=== PATIENT | female | born 1935 | race Caucasian/White ===

== ENCOUNTER 2019-06-15 06:05 | Inpatient (IN) ==
[2019-06-15] MEDS ORDERED: SODIUM CHLORIDE 0.9% 1000ML 1,000 ML IV SCH (06:45)
[2019-06-15 07:06] LABS: Albumin Level 3.3 gm/dl (3.4-5.0); BUN Creatinine Ratio 14.6 (10-20); Creatinine Clr Calc Pharmacy 12.2 ml/min; Est GFR (African American) 16.2; Potassium 4.4 mmol/L (3.5-5.1)
[2019-06-15 07:08] LABS: INR 1.2 (0.9-1.1); Prothrombin Time 12.3 Seconds (9.0-12.0)
--- NOTE | 2019-06-15 07:09 | XRay Report ---
XR chest 1V portable CLINICAL HISTORY: weakness COMPARISON STUDY: Chest radiograph October 04, 2008. FINDINGS: Lung volumes are normal. There is no pneumothorax or pleural effusion. There is no consolid ation to suggest pneumonia. Minimal linear left basilar opacity favors atelectasis or scarring. Cardi omediastinal silhouette is stable. IMPRESSION: No acute cardiopulmonary findings. Electronically signed by: Rd Cabral M.D. 06/15/2019 7:07 AM
[2019-06-15 07:14] LABS: Hematocrit (blood only) 30.6 % (37-47); Hemoglobin 10.3 g/dL (12.0-16.0); Mean Corpuscular Hgb Conc 33.7 g/dL (32-36); Mean Corpuscular Volume 97.1 fL (80-100); Mean Platelet Volume 10.3 fL (7.4-10.4); Platelet Count 120 K/uL (130-400); RDW Standard Deviation 49.2 fL (36.4-46.3); Red Blood Count 3.15 M/uL (4.2-5.4); White Blood Count 0.85 K/uL (4.8-10.8)
[2019-06-15 07:15] LABS: Appearance Urine Turbid (Clear); Bacteria Urine Automated 4+ (Negative); Bilirubin Urine Negative (Negative); Blood Urine 3+ (Negative); Color Urine Yellow; Epithelial Cell Urine Auto 20-30 /lpf (0-5); Glucose Urine UA Negative (Negative); Ketones Urine Trace (Negative); Leukocyte Esterase Urine 3+ (Negative); Nitrite Urine Negative (Negative); Protein Urine 1+ (Negative); RBC Urine Automated >30 /hpf (0-4); Specific Gravity Urine 1.021 (1.000-1.030); Urobilinogen Urine Negative (Negative); WBC Urine Automated >30 /hpf (0-5)
[2019-06-15 07:25] LABS: Albumin Globulin Ratio 0.9 (0.9-2); Bilirubin,Total 0.8 mg/dl (0.2-1); Globulin 3.7 gm/dl (2.5-4.0); Troponin I 0.275 ng/ml (0-0.045)
[2019-06-15] MEDS ORDERED: cefTRIAXone SODIUM 1,000 MG/50 ML BAG IV STA (07:34)
[2019-06-15] MEDS ORDERED: SODIUM CHLORIDE 0.9% 1000ML 1,000 ML IV ONE ×3 (07:35→11:13)
--- NOTE | 2019-06-15 07:38 | Emergency Department Note ---
Entered by Beatriz Hill acting as a scribe for Thomas Vera DO History of Present Illness General Chief complaint: Illness Stated complaint: ILLNESS/POSSIBLE SEIZURE Source: patient and family Mode of arrival: EMS Limitations: no limitations History of Present Illness Onset (ago): hour(s) (0400) Location: head (global), upper extremity (global) and lower extremity (global) Pain Consistency: + other (episode) Quality: + other (illness, possible seizure, shaking) Relieved By: + medication (Nitro, baby aspirin) Associated symptoms: + nausea/vomiting (The patient complains of vomiting. The patient denies nausea. ) and + other (The patient complains of pain with urination and right sided flank pain. The patient denies changes in vision and numbness.); no chest pain, no fever/chills (The patient denies fevers. ), no headaches, no shortness of breath, no syncope and no weakness Treatments prior to arrival: aspirin and other (nitro) The patient is an 84 year old female with a history of CAD, stents, heart attack, atherosclerosis, diverticulosis of colon, and osteroarthrosis who presents to the ED via EMS with complaints of an episode of illness/possible seizure that onset at 0400. The patient presents with her family. Per EMS, the patient got up to use the restroom last night and then went back to bed. Per , when the patient returned to bed she began to shake like she was cold for 30 minutes. He denies loss of consciousness and unresponsiveness. He states that he give her 1 nitro and 1 baby aspirin, which helped to alleviate her symptoms. Per , the patient was not complaining of chest pain at this time. The patient states that she remembers getting up to use the restroom. They state that by the time EMS arrived, she was no longer shaking and was conscious. Per EMS, the patient was very warm and lethargic but oriented. Per , the patient has been vomiting and constipated over the past three days. The patient complains of pain with urination and right sided flank pain. The patient denies fevers, headaches, changes in vision, chest pain, shortness of breath, nausea, weakness, and numbness. Home Medications Home Medications Medication Instructions Recorded Confirmed Type amlodipine 5 mg PO DAILY 06/15/19 06/15/19 History aspirin 81 mg PO DAILY 06/15/19 06/15/19 History calcium carbonate [Calcium 600] 600 mg PO DAILY 06/15/19 06/15/19 History celecoxib 100 mg PO BID 06/15/19 06/15/19 History metoprolol succinate 100 mg PO DAILY 06/15/19 06/15/19 History nitroglycerin [Nitrostat] 0.4 mg SUBLINGUAL USEASDIRECTD PRN 06/15/19 06/15/19 History oxybutynin chloride 2.5 mg PO BID 06/15/19 06/15/19 History potassium chloride 20 meq PO DAILY 06/15/19 06/15/19 History triamterene-hydrochlorothiazid 1 tab PO DAILY 06/15/19 06/15/19 History Allergies Allergy/AdvReac Type Severity Reaction Status Date / Time banana AdvReac Unknown SHAKES;FEELS Verified 06/15/19 07:45 LIKE SHE IS IN ANOTHER WORLD Past Med/Surg History Medical History CKD (chronic kidney disease), stage III (Chronic) Non-STEMI (non-ST elevated myocardial infarction) (Chronic) Hypertension (Chronic) CAD (coronary artery disease) (Chronic) Dyslipidemia (Chronic) Surgical History History of cataract surgery (Chronic) History of total right hip arthroplasty (Chronic) History of carpal tunnel surgery of right wrist (Chronic) Family History Mother Heart disease Liver cancer Father Heart disease Social History Preferred Language: German Communication Ability: drowsy Visual Impairment: No Limitations Hearing Ability: Normal Litigation Legal Secretary Required: No Beliefs That Will Affect Care: None marital status details: Current Living Situation: Spouse Other Information That Helps Us Care for You: No Feels Safe at Home: No Is there a partner from a previous relationship who is making you feel unsafe now?: No Any Concerns about Your Family Situation: No Would You Like to Speak to Someone About Your Situation: No Safety Concerns: Feels Safe At This Time Smoking Status: Never smoker Hx Alcohol Use: No Hx Substance Use: No Review of Systems See HPI for pertinent positives & negatives. and A total of 10 systems reviewed and were otherwise negative Physical Exam Vital Signs Vital Signs - 24 hr 06/15/19 06:15 06/15/19 06:44 06/15/19 07:02 Temperature 37.0 C Temperature Source Oral Sepsis Recent Fever Within 48 Hours No Sepsis New/Unexplained Change in Mental Status No Sepsis Action Taken by Nursing No Action Required Pulse Rate 103 H Pulse Rate [Finger] 97 H Pulse Rhythm [Finger] Pulse Strength [Finger] Respiratory Rate 18 18 Respiratory Effort / Characteristics Respiratory Depth Respiratory Pattern Blood Pressure 129/53 L Blood Pressure [Right Arm] 114/57 L Blood Pressure Mean 78 Blood Pressure Mean [Right Arm] 76 Blood Pressure Position [Right Arm] Pulse Oximetry 96 95 96 Oxygen Delivery Method Room Air Room Air Room Air 06/15/19 08:30 Temperature Temperature Source Sepsis Recent Fever Within 48 Hours Sepsis New/Unexplained Change in Mental Status Sepsis Action Taken by Nursing Pulse Rate Pulse Rate [Finger] 94 H Pulse Rhythm [Finger] Regular Pulse Strength [Finger] Normal Respiratory Rate 18 Respiratory Effort / Characteristics Non-Labored Spontaneous Respiratory Depth Normal Respiratory Pattern Regular Blood Pressure Blood Pressure [Right Arm] 110/46 L Blood Pressure Mean Blood Pressure Mean [Right Arm] 67 Blood Pressure Position [Right Arm] Lying Pulse Oximetry 96 Oxygen Delivery Method Room Air GENERAL: Sitting up in bed. Tachycardic, disheveled, ill appearing, minimal distress, non-toxic EYE EXAM: Normal conjunctiva. OROPHARYNX: no exudate, no erythema, lips, buccal mucosa, and tongue normal and mucous membranes are dry. NECK: supple, no nuchal rigidity, no adenopathy, non-tender LUNGS: Clear to auscultation. Normal chest wall mechanics HEART: Tachycardic, S1 normal and S2 normal ABDOMEN: abdomen soft, Diffusely tender in lower abdomen, normo-active bowel sounds, no masses, no rebound or guarding. BACK: Back is symmetrical on inspection and there is no deformity, no midline tenderness, no CVA tenderness. SKIN: no rashes and no bruising UPPER EXTREMITIES: upper extremities are grossly normal. LOWER EXTREMITIES: No pitting edema. NEURO EXAM: Normal sensorium, cranial nerves II-XII grossly intact, normal speech, no gross weakness of arms, no gross weakness of legs. Course 0631: Past medical records reviewed. The patient was evaluated in room B12. A complete history and physical examination was performed. 0759: Callout to urology. 0800: I updated the patient on the results of her scans. 0800: I reviewed the patient's case with Shante Abreu for Dr. Lee. She will evaluate the patient for further management. 0802: I reviewed the patient's case with Janice - Urology. She will come see the patient. 0823: I reviewed the patient's case with Shante Abreu. 0830: I reviewed the patient's case with Janice - Urology. She states to get a NPO renal ultrasound KUB. 0832: I updated Shante Abreu. Consultations Consultation #1: 0800: I reviewed the patient's case with Shante Abreu for Dr. Lee. She will evaluate the patient for further management. Time: 08:00 Consultation #2: 08: I reviewed the patient's case with Janice - Urology. She will come see the patient. Time: 08:02 Consultation #3: 0823: I reviewed the patient's case with Shante Abreu. Time: 08:23 Additional Consultation(s): 0830: I reviewed the patient's case with Janice - Urology. She states to get a NPO renal ultrasound KUB. 0832: [facility] Administered Medications Discontinued Medications Sodium Chloride (Nss 1000ml) 1,000 mls @ 999 mls/hr IV .Q1H1M MERVAT Stop: 06/15/19 07:45 Last Infusion: 06/15/19 08:00 Dose: 0 mls/hr Documented by: [id number] Admin: 06/15/19 07:00 Dose: 999 mls/hr Documented by: [id number] Ceftriaxone Sodium (Rocephin) 1,000 mg in 50 mls @ 100 mls/hr IV NOW STA Stop: 06/15/19 08:03 Last Infusion: 06/15/19 08:45 Dose: 0 mls/hr Documented by: [id number] Admin: 06/15/19 08:12 Dose: 100 mls/hr Documented by: [id number] Sodium Chloride (Nss 1000ml) 1,000 mls @ 999 mls/hr IV .Q1H1M ONE Stop: 06/15/19 08:35 Last Infusion: 06/15/19 09:18 Dose: 0 mls/hr Documented by: [id number] Admin: 06/15/19 08:17 Dose: 999 mls/hr Documented by: [id number] Sodium Chloride (Nss 1000ml) 1,000 mls @ 999 mls/hr IV .Q1H1M ONE Stop: 06/15/19 09:01 Last Infusion: 06/15/19 09:18 Dose: 0 mls/hr Documented by: [id number] Admin: 06/15/19 08:17 Dose: 999 mls/hr Documented by: [id number] Sodium Chloride (Nss) 500 mls @ 125 mls/hr IV .Q4H MERVAT Stop: 07/15/19 10:18 Last Admin: 06/15/19 13:13 Dose: 125 mls/hr Documented by: [id number] Piperacillin Sod/Tazobactam (Sod 3.375 gm/ Dextrose) 115 mls @ 230 mls/hr IV NOW ONE; Protocol Stop: 06/15/19 11:14 Last Infusion: 06/15/19 13:13 Dose: 0 mls/hr Documented by: [id number] Admin: 06/15/19 11:26 Dose: 230 mls/hr Documented by: [id number] Sodium Chloride (Nss 1000ml) 1,000 mls @ 999 mls/hr IV .Q1H1M ONE Stop: 06/15/19 12:13 Last Infusion: 06/15/19 13:13 Dose: 0 mls/hr Documented by: [id number] Admin: 06/15/19 11:20 Dose: 999 mls/hr Documented by: [id number] Daptomycin 300 mg/ Syringe 6 mls @ 4 mls/min IV 1300 ONE; Protocol Stop: 06/15/19 13:01 Last Admin: 06/15/19 14:12 Dose: 4 mls/min Documented by: [id number] Medical Decision Making Differential Diagnosis Differential diagnoses: Appendicitis, diverticulitis, PUD, biliary pathology, UTI, pancreatitis, obstruction, mesenteric ischemia, aortic pathology, infections, inflammatory bowel disease, renal colic, as well as others were entertained. Medical Records Attestation: I reviewed the patient's medical records. Home Medications Current Medication List: was personally reviewed by me Laboratory Data Attestation: I reviewed the patient's lab results. Result diagrams: 06/15/19 14:51 06/15/19 14:51 Lab Results 06/15/19 06/15/19 06/15/19 Range/Units 06:17 06:17 06:17 WBC 0.85 L* (4.8-10.8) K/uL RBC 3.15 L (4.2-5.4) M/uL Hgb 10.3 L (12.0-16.0) g/dL Hct 30.6 L (37-47) % MCV 97.1 (80-100) fL MCH 32.7 (25-34) pg MCHC 33.7 (32-36) g/dL RDW Std Deviation 49.2 H (36.4-46.3) fL RDW Coeff of Jose 14.0 (11.5-14.5) % Plt Count 120 L (130-400) K/uL MPV 10.3 (7.4-10.4) fL Immature Gran % (Auto) 0.0 % Neut % (Auto) 72.9 % Lymph % (Auto) 20.0 % [place] % (Auto) 1.2 % Eos % (Auto) 5.9 % Baso % (Auto) 0.0 % Immature Gran # (Auto) 0.00 (0.00-0.02) K/uL Neut # (Auto) 0.62 L* (1.4-6.5) K/uL Lymph # (Auto) 0.17 L (1.2-3.4) K/uL [place] # (Auto) 0.01 L (0.11-0.59) K/uL Eos # (Auto) 0.05 (0-0.5) K/uL Baso # (Auto) 0.00 (0-0.2) K/uL Toxic Granulation 1+ Toxic Vacuolation 3+ Dohle Bodies 2+ Giant Platelets 1+ Peripher Smr Path Cons PT 12.3 H (9.0-12.0) Seconds INR 1.2 H (0.9-1.1) Sodium 138 (136-145) mmol/L Potassium 4.4 (3.5-5.1) mmol/L Chloride 109 H (98-107) mmol/L Carbon Dioxide 15 L (21-32) mmol/L Anion Gap 14.0 H (3-11) BUN 43 H (7-18) mg/dl Creatinine 2.95 H (0.6-1.2) mg/dl Est Cr Clr Drug Dosing 12.2 ml/min Est GFR ( Amer) 16.2 Est GFR (Non-Af Amer) 14.0 BUN/Creatinine Ratio 14.6 (10-20) Glucose 93 (70-99) mg/dl Lactate (0.4-2.0) mmol/L Calcium 9.0 (8.5-10.1) mg/dl Total Bilirubin 0.8 (0.2-1) mg/dl AST 27 (15-37) U/L ALT 23 (12-78) U/L Alkaline Phosphatase 106 (45-117) U/L Troponin I 0.275 H* (0-0.045) ng/ml Total Protein 7.0 (6.4-8.2) gm/dl Albumin 3.3 L (3.4-5.0) gm/dl Globulin 3.7 (2.5-4.0) gm/dl Albumin/Globulin Ratio 0.9 (0.9-2) TSH 0.568 (0.300-4.500) uIu/ml Urine Color Urine Appearance (Clear) Urine pH (4.5-7.5) Ur Specific [place] (1.000-1.030) Urine Protein (Negative) Urine Glucose (UA) (Negative) Urine Ketones (Negative) Urine Blood (Negative) Urine Nitrite (Negative) Urine Bilirubin (Negative) Urine Urobilinogen (Negative) Ur Leukocyte Esterase (Negative) Urine WBC (Auto) (0-5) /hpf Urine RBC (Auto) (0-4) /hpf U Hyaline Cast (Auto) (0-5) /lpf U Epithel Cells (Auto) (0-5) /lpf Urine Bacteria (Auto) (Negative) Lyme Disease IgG Ab (Negative) Lyme Disease IgM Ab (Negative) 06/15/19 06/15/19 06/15/19 Range/Units 06:17 06:58 07:14 WBC (4.8-10.8) K/uL RBC (4.2-5.4) M/uL Hgb (12.0-16.0) g/dL Hct (37-47) % MCV (80-100) fL MCH (25-34) pg MCHC (32-36) g/dL RDW Std Deviation (36.4-46.3) fL RDW Coeff of Jose (11.5-14.5) % Plt Count (130-400) K/uL MPV (7.4-10.4) fL Immature Gran % (Auto) % Neut % (Auto) % Lymph % (Auto) % [place] % (Auto) % Eos % (Auto) % Baso % (Auto) % Immature Gran # (Auto) (0.00-0.02) K/uL Neut # (Auto) (1.4-6.5) K/uL Lymph # (Auto) (1.2-3.4) K/uL [place] # (Auto) (0.11-0.59) K/uL Eos # (Auto) (0-0.5) K/uL Baso # (Auto) (0-0.2) K/uL Toxic Granulation Toxic Vacuolation Dohle Bodies Giant Platelets Peripher Smr Path Cons PT (9.0-12.0) Seconds INR (0.9-1.1) Sodium (136-145) mmol/L Potassium (3.5-5.1) mmol/L Chloride (98-107) mmol/L Carbon Dioxide (21-32) mmol/L Anion Gap (3-11) BUN (7-18) mg/dl Creatinine (0.6-1.2) mg/dl Est Cr Clr Drug Dosing ml/min Est GFR ( Amer) Est GFR (Non-Af Amer) BUN/Creatinine Ratio (10-20) Glucose (70-99) mg/dl Lactate 4.8 H* (0.4-2.0) mmol/L Calcium (8.5-10.1) mg/dl Total Bilirubin (0.2-1) mg/dl AST (15-37) U/L ALT (12-78) U/L Alkaline Phosphatase (45-117) U/L Troponin I (0-0.045) ng/ml Total Protein (6.4-8.2) gm/dl Albumin (3.4-5.0) gm/dl Globulin (2.5-4.0) gm/dl Albumin/Globulin Ratio (0.9-2) TSH (0.300-4.500) uIu/ml Urine Color Yellow Urine Appearance Turbid A (Clear) Urine pH 5.0 (4.5-7.5) Ur Specific [place] 1.021 (1.000-1.030) Urine Protein 1+ H (Negative) Urine Glucose (UA) Negative (Negative) Urine Ketones Trace H (Negative) Urine Blood 3+ H (Negative) Urine Nitrite Negative (Negative) Urine Bilirubin Negative (Negative) Urine Urobilinogen Negative (Negative) Ur Leukocyte Esterase 3+ H (Negative) Urine WBC (Auto) >30 H (0-5) /hpf Urine RBC (Auto) >30 H (0-4) /hpf U Hyaline Cast (Auto) 1-5 (0-5) /lpf U Epithel Cells (Auto) 20-30 H (0-5) /lpf Urine Bacteria (Auto) 4+ H (Negative) Lyme Disease IgG Ab Negative (Negative) Lyme Disease IgM Ab Negative (Negative) Imaging Data Radiologist's Impression: Radiology results as stated below per my review and the radiologist's interpretation: KUB CLINICAL HISTORY: r flank pain ? stone COMPARISON STUDY: CT of the abdomen and pelvis June 15, 2019 at 7:34 AM. FINDINGS: Gallstones measuring up to 1.7 cm in size are noted. Right hip arthroplasty is noted. 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 Numerous pelvic phleboliths are noted. Distal ureteral calculi cannot be excluded on this exam. The bowel gas pattern is normal. IMPRESSION: 1. Numerous pelvic calcifications, the majority of which represent phleboliths. However, these make evaluation for distal ureteral calculi difficult. 2. Cholelithiasis. 3. No bowel obstruction. Electronically signed by: Rd Cabral M.D. 06/15/2019 9:18 AM Dictated: 06/15/19 0914 Transcribed: 06/15/[address] head/brain wo con CLINICAL HISTORY: 84 years-old Female presenting with SEVERINO, neutropenic. TECHNIQUE: Multidetector CT imaging of the head was performed without the use of intravenous contrast. IV contrast: None. One or more dose lowering techniques were used consistent with the principles of ALARA (as low as reasonably achievable), including automatic exposure control, mA or kV adjustment to individual patient size, and/or use of iterative reconstruction. COMPARISON: 04/04/2016. CT DOSE (mGy.cm): The estimated cumulative dose is 1136.86 mGy.cm. FINDINGS: Commercial Food In[employer] topogram: Unremarkable. Ventricles and sulci normal in size. No hemorrhage. Periventricular and subcortical white matter hypoattenuation, nonspecific but likely indicative of chronic small vessel ischemic change. 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 No acute territorial infarct. No mass effect or midline shift. No extra-axial fluid collection. Paranasal sinuses and mastoid air cells clear. Calvarium intact. IMPRESSION: 1. No significant change compared to the prior study. No acute intracranial abnormality. Electronically signed by: Jose Olson M.D. 06/15/2019 7:42 AM Dictated: 06/15/19738 Transcribed: 06/15/19738 CT SCAN OF THE ABDOMEN AND PELVIS WITHOUT IV CONTRAST CLINICAL HISTORY: Generalized abdominal pain. Neutropenia. COMPARISON STUDY: No priors. TECHNIQUE: CT scan of the abdomen and pelvis is performed from the lung bases to the proximal femora. Images are reviewed in the axial, sagittal, and coronal planes. IV contrast was not administered for this examination as per the referring clinician. The examination is degraded by streak artifact from the arms which could not be elevated above the abdomen as well as by motion. A dose lowering technique was utilized adhering to the principles of ALARA. FINDINGS: Lung bases: The heart is top normal in size and without pericardial effusion. There is diminished attenuation of the cardiac blood pool as compared to the myocardium suggesting anemia. The coronary arteries are densely calcified. There is atherosclerotic calcification of the visualized thoracic aorta. Evaluation of the lung bases is motion compromised. There is bibasilar scarring/atelectasis. No airspace consolidation or pleural effusion is identified. There is a tiny hiatal hernia. Liver: The unenhanced liver is normal in size, contour, and attenuation. There is no intrahepatic biliary ductal dilatation. Gallbladder: There are numerous calcified gallstones, with no CT evidence of ac [place] cholecystitis. Spleen: Normal in size and attenuation. Pancreas: The unenhanced pancreas is moderately atrophic and grossly unremarkable. Adrenal glands: Unremarkable. Kidneys: The unenhanced kidneys are atrophic. There is mild right-sided hydroureteronephrosis. No hydronephrosis is seen on the left. There is a 3 mm nonobstructing calculus in the lower pole of the left kidney. No right renal calculi are identified. There is no evidence of contour deforming renal mass lesion. Abdominal vasculature: The abdominal aorta is normal in course and caliber noting advanced atherosclerotic calcification. Bowel: There is mild colonic diverticulosis without CT evidence of acute diverticulitis. No bowel obstruction is seen. The appendix is well-visualized and normal. Peritoneum: There is no intraperitoneal free air or abdominal ascites. Lymphadenopathy: None. Pelvic viscera: Evaluation of the pelvis is degraded by streak artifact from a right hip arthroplasty. The bladder, uterus, and adnexa are normal as imaged. There are numerous pelvic phleboliths. Skeletal structures: The skeletal structures are osteopenic. No lytic or blastic lesions are seen. Mild to moderate lumbosacral spondylosis is observed. A right hip arthroplasty is in place. Advanced degenerative change and deformity is noted in the left hip with a small joint effusion. IMPRESSION: 1. Streak and motion compromised examination. 2. There is mild right hydroureteronephrosis. The distal right ureter and the ri ght vesicoureteral junction cannot be assessed due to significant streak artifact from a right hip arthroplasty. Obstructing distal right ureteral stone is not excluded. Correlation with clinical findings and urinalysis will be required. 3. There is a small nonobstructing calculus seen in the left kidney. 4. Cholelithiasis. 5. Additional findings as above. Electronically signed by: Deo Sales M.D. 06/15/2019 7:49 AM Dictated: 06/15/19739 Transcribed: 06/15/19739 XR chest 1V portable CLINICAL HISTORY: weakness COMPARISON STUDY: Chest radiograph October 04, 2008. FINDINGS: Lung volumes are normal. There is no pneumothorax or pleural effusion. There is no consolidation to suggest pneumonia. Minimal linear left basilar opacity favors atelectasis or scarring. Cardiomediastinal silhouette is stable. IMPRESSION: No acute cardiopulmonary findings. Electronically signed by: Rd Cabral M.D. 06/15/2019 7:07 AM Dictated: 06/15/19705 Transcribed: 06/15/19705 ECG Data Attestation: I personally reviewed and interpreted this ECG as follows: Indication: weakness Rate (beats per minute): 103 Rhythm: sinus tachycardia Findings: + ST depression (highlateral) and + ST elevation (inferior) Comparison ECG Date: from (04/04/16) Change: the following changes noted (ST elevations are old. ST depressions are slightly worse. ) Blood Pressure Blood Pressure Findings: Normal blood pressure MDM Narrative Patient is an 84-year-old female with a significant past medical history listed in the HPI the presents the ER for vomiting over the past 2 days associated with shaking this morning. Patient was awake during this episode. Nothing to suggest seizures. Upon arrival she is found to be slightly tachycardic but afebrile. He was established blood work was obtained. CBC was remarkable for a severe neutropenia with a white count of 0.85. Hemoglobin at 10 with mild anemia. Platelets were also slightly low 120. BMP with a creatinine of 2.95 up from a baseline of 1. CO2 is low at 15. LFTs were normal. Troponin was detectable at 0.275. EKG with ST segment elevations in the inferior and depressions in the high lateral which appear to be consistent with old. TSH was normal. UA does suggest a UTI although slightly contaminated with epithelial cells and is consistent with her history of urinary frequency and burning. Chest x-ray per my review shows no focal infiltrate. CT of the head shows no acute pathology. CT abdomen pelvis shows hydroureter but no obvious distal s tone was able to be visualized. Discussed with urology and they recommended a renal ultrasound along with a KUB. Renal ultrasound showed no hydro-. KUB was not significant helpful. Patient was given 2 L IV fluids along with IV antibiotics. She was discussed with hospitalist. She was admitted for sepsis with moderate neutropenia, and elevated troponin and acute kidney injury with a creatinine 2.95. Impression & Plan Sepsis, Neutropenia, UTI (urinary tract infection), Elevated troponin, KEYSHA (acute kidney injury) Critical Care Time Critical Care Time: Yes (30) Total Critical Care Time: 30 I have personally spent 30 minutes of critical care time in the direct management of this patient. This includes bedside care, interpretation of diagnostic studies, and testing, discussion with consultants, patient, and family members, and other required patient management activities. This 30 minutes is in excess of all separately billable procedures. Discharge Plan Visit Data *Final* Discharge Date/Time: 06/15/19 09:48 Chief Complaint: Illness Stated Complaint: ILLNESS/POSSIBLE SEIZURE ED Provider: Thomas Vera Discharge Problem: Sepsis, Neutropenia, UTI (urinary tract infection), Elevated troponin, KEYSHA (acute kidney injury) Patient Disposition: Admitted As Inpatient Discharge Instructions Interventions: ED Discharge Assessment Last Done: 06/15/19 09:48 Discharge Problem: Sepsis Qualifiers: Sepsis type: sepsis due to unspecified organism Qualified Code(s): A41.9 - Sepsis, unspecified organism Neutropenia Qualifiers: Neutropenia type: unspecified Qualified Code(s): D70.9 - Neutropenia, unspecified UTI (urinary tract infection) Qualifiers: Urinary tract infection type: site unspecified Hematuria presence: with hematuria Qualified Code(s): N39.0 - Urinary tract infection, site not specified The scribe's documentation has been prepared under my direction and personally reviewed by me in its entirety. I confirm that the note above accurately reflects all work, treatment, procedures, and medical decision making performed by me.
--- NOTE | 2019-06-15 07:43 | CT Scan Report ---
CT head/brain wo con CLINICAL HISTORY: 84 years-old Female presenting with SEVERINO, neutropenic. TECHNIQUE: Multidetector CT imaging of the head was performed without the use of intravenous contrast . IV contrast: None. One or more dose lowering techniques were used consistent with the principles of ALARA (as low as reasonably achievable), including automatic exposure control, mA or kV adjustment t o individual patient size, and/or use of iterative reconstruction. COMPARISON: 04/04/2016. CT DOSE (mGy.cm): The estimated cumulative dose is 1136.86 mGy.cm. FINDINGS: Behavioral Consultant topogram: Unremarkable. Ventricles and sulci normal in size. No hemorrhage. Periventricular and subcortical white matter hypo attenuation, nonspecific but likely indicative of chronic small vessel ischemic change. 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 No acute territorial infarct. No mass effect or midline shift. No extra- axial fluid collection. Paranasal sinuses and mastoid air cells clear. Calvarium intact. IMPRESSION: 1. No significant change compared to the prior study. No acute intracranial abnormality. Electronically signed by: Jose Olson M.D. 06/15/2019 7:42 AM
--- NOTE | 2019-06-15 07:50 | CT Scan Report ---
CT SCAN OF THE ABDOMEN AND PELVIS WITHOUT IV CONTRAST CLINICAL HISTORY: Generalized abdominal pain. Neutropenia. COMPARISON STUDY: No priors. TECHNIQUE: CT scan of the abdomen and pelvis is performed from the lung bases to the proximal femora. Images are reviewed in the axial, sagittal, and coronal planes. IV contrast was not administered for this examination as per the referring clinician. The examination is degraded by streak artifact fro m the arms which could not be elevated above the abdomen as well as by motion. A dose lowering techni que was utilized adhering to the principles of ALARA. FINDINGS: Lung bases: The heart is top normal in size and without pericardial effusion. There is diminished att enuation of the cardiac blood pool as compared to the myocardium suggesting anemia. The coronary stephen celina are densely calcified. There is atherosclerotic calcification of the visualized thoracic aorta. Evaluation of the lung bases is motion compromised. There is bibasilar scarring/atelectasis. No airsp eufemia consolidation or pleural effusion is identified. There is a tiny hiatal hernia. Liver: The unenhanced liver is normal in size, contour, and attenuation. There is no intrahepatic ilan iary ductal dilatation. Gallbladder: There are numerous calcified gallstones, with no CT evidence of acute cholecystitis. Spleen: Normal in size and attenuation. Pancreas: The unenhanced pancreas is moderately atrophic and grossly unremarkable. Adrenal glands: Unremarkable. Kidneys: The unenhanced kidneys are atrophic. There is mild right-sided hydroureteronephrosis. No hyd ronephrosis is seen on the left. There is a 3 mm nonobstructing calculus in the lower pole of the lef t kidney. No right renal calculi are identified. There is no evidence of contour deforming renal mass lesion. Abdominal vasculature: The abdominal aorta is normal in course and caliber noting advanced atheroscle rotic calcification. Bowel: There is mild colonic diverticulosis without CT evidence of acute diverticulitis. No bowel obs truction is seen. The appendix is well-visualized and normal. Peritoneum: There is no intraperitoneal free air or abdominal ascites. Lymphadenopathy: None. Pelvic viscera: Evaluation of the pelvis is degraded by streak artifact from a right hip arthroplasty . The bladder, uterus, and adnexa are normal as imaged. There are numerous pelvic phleboliths. Skeletal structures: The skeletal structures are osteopenic. No lytic or blastic lesions are seen. Mi ld to moderate lumbosacral spondylosis is observed. A right hip arthroplasty is in place. Advanced de generative change and deformity is noted in the left hip with a small joint effusion. IMPRESSION: 1. Streak and motion compromised examination. 2. There is mild right hydroureteronephrosis. The distal right ureter and the right vesicoureteral ju nction cannot be assessed due to significant streak artifact from a right hip arthroplasty. Obstructi ng distal right ureteral stone is not excluded. Correlation with clinical findings and urinalysis monae l be required. 3. There is a small nonobstructing calculus seen in the left kidney. 4. Cholelithiasis. 5. Additional findings as above. Electronically signed by: Deo Sales M.D. 06/15/2019 7:49 AM
[2019-06-15 07:51] LABS: Dohle Bodies 2+; Eosinophils # (auto) 0.05 K/uL (0-0.5); Eosinophils % (auto) 5.9 %; Giant Platelets 1+; Lymphocytes # (auto) 0.17 K/uL (1.2-3.4); Monocytes # (auto) 0.01 K/uL (0.11-0.59); Monocytes % (auto) 1.2 %; Neutrophils # (auto) 0.62 K/uL (1.4-6.5); Neutrophils % (auto) 72.9 %; Toxic Granulation 1+; Toxic Vacuolation 3+
[2019-06-15 08:06] LABS: Lyme Ab IgG w/WB Rflx Negative (Negative); Lyme Ab IgM w/WB Rflx Negative (Negative)
--- NOTE | 2019-06-15 09:19 | XRay Report ---
KUB CLINICAL HISTORY: r flank pain ? stone COMPARISON STUDY: CT of the abdomen and pelvis June 15, 2019 at 7:34 AM. FINDINGS: Gallstones measuring up to 1.7 cm in size are noted. Right hip arthroplasty is noted. 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 Numerous pelvic phleboli ths are noted. Distal ureteral calculi cannot be excluded on this exam. The bowel gas pattern is norm al. IMPRESSION: 1. Numerous pelvic calcifications, the majority of which represent phleboliths. However, these make e valuation for distal ureteral calculi difficult. 2. Cholelithiasis. 3. No bowel obstruction. Electronically signed by: Rd Cabral M.D. 06/15/2019 9:18 AM
--- NOTE | 2019-06-15 09:57 | History & Physical Report ---
Date of Service June 15, 2019 Assessment & Plan (1) Severe sepsis: (2) UTI (urinary tract infection): (3) Metabolic encephalopathy: -Admit to telemetry -Patient presenting from home with reports of altered mental status -On presentation, leukopenic WBC 0.85 (ANC 0.62), mildly tachycardic, lactic acid 4.8; currently afebrile with borderline low BPs -UA suggest UTI and CT ABD/pelvis is suggesting a possible obstructing distal right ureteral stone -Received appropriate fluid resuscitation at 30 mL's/KG in the ED; received 1 dose of IV ceftriaxone -will change antibiotics to IV Zosyn to cover for Pseudomonas given sepsis -Continue IVF, trend lactate -Follow blood and urine cultures (noted blood cultures drawn after administration of IV antibiotics) -Urology consult, possible need for cystoscopy today; case discussed with KARLEE Keller (4) CAD (coronary artery disease): (5) Elevated troponin: -History of PCI to LAD and balloon angioplasty to diagonal in 2013 -Initial troponin 0.275 -No reports of chest pain -EKG shows minimal (< 1mm) ST elevations in the inferior leads -Likely due to demand ischemia from sepsis -Obtain urgent echo before possible OR today -will place patient on metoprolol tartrate 50 mg twice daily in lieu of home dose of metoprolol succinate 100 mg daily for easier titration given borderline low BPs -Continue aspirin, monitor closely given thrombocytopenia -Not on statin therapy secondary to muscle aches (6) KEYSHA (acute kidney injury): (7) CKD (chronic kidney disease), stage III: -Creatinine 2.95 (baseline runs in the mid 1's) -Likely combination of prerenal due to poor p.o. intake and vomiting, possibly obstructive secondary to renal calculi and in concurrent use with HCTZ and Celebrex -IVF, hold HCTZ and Celebrex -Monitor renal functions closely (8) Pancytopenia: -WBC 0.85, H/H 10.3/30.6, platelets 120 K, ANC 0.62 -Likely secondary to sepsis -Also consider possible tickborne disease -Obtain peripheral smear -Consider empiric coverage with doxycycline pending peripheral smear results (9) Hypertension: -BP currently borderline low -Metoprolol as above, hold amlodipine and triamterene/HCTZ (10) DVT prophylaxis: -SCDs due to thrombocytopenia History of Present Illness Chief Complaint: Altered mental status Primary Care Provider: Janusz Giordano DO 84-year-old female who presents the ED with altered mental status. and daughter are at the bedside who provides some history. Yesterday, patient was complaining of left flank pain radiating into her left lower quadrant. She also had nausea with a couple episodes of vomiting. They describe the emesis as green/bilious in nature. No hematemesis or coffee-ground emesis. Patient was able to tolerate some chicken soup for dinner last night. Around 4 AM, reports that he was awoken because the patient was shaking. She was awake and conversing at this time. He gave her a sublingual nitroglycerin and a baby aspirin. There is no reports of chest pain. Denies shortness of breath. No lightheadedness, dizziness, diaphoresis, syncopal events. Patient has not had a bowel movement in 2 days, reports she typically goes about 2 times per day. Denies abdominal pain. Temperature was not taken to evaluate for fever. Denies urinary symptoms. In the ED, labs show pancytopenia (WBC 0.85, ANC 0.62, Hgb 10.3, platelets 120), KEYSHA with creatinine 2.95 (baseline runs in the mid ones), lactic acid 4.8. Patient has been afebrile. Patient was mildly tachycardic with borderline low BPs. UA suggest UTI.CT ABD/pelvis is suggesting a possible obstructing distal right ureteral stone. Patient was given IVF and IV ceftriaxone. Allergies Allergy/AdvReac Type Severity Reaction Status Date / Time banana AdvReac Unknown SHAKES;FEELS Verified 06/15/19 07:45 LIKE SHE IS IN ANOTHER WORLD Home Medications Home Medications Medication Instructions Recorded Confirmed Type amlodipine 5 mg PO DAILY 06/15/19 06/15/19 History aspirin 81 mg PO DAILY 06/15/19 06/15/19 History calcium carbonate [Calcium 600] 600 mg PO DAILY 06/15/19 06/15/19 History celecoxib 100 mg PO BID 06/15/19 06/15/19 History metoprolol succinate 100 mg PO DAILY 06/15/19 06/15/19 History nitroglycerin [Nitrostat] 0.4 mg SUBLINGUAL USEASDIRECTD PRN 06/15/19 06/15/19 History oxybutynin chloride 2.5 mg PO BID 06/15/19 06/15/19 History potassium chloride 20 meq PO DAILY 06/15/19 06/15/19 History triamterene-hydrochlorothiazid 1 tab PO DAILY 06/15/19 06/15/19 History Past Med/Surg History Medical History CKD (chronic kidney disease), stage III (Chronic) Non-STEMI (non-ST elevated myocardial infarction) (Chronic) Hypertension (Chronic) CAD (coronary artery disease) (Chronic) Dyslipidemia (Chronic) Surgical History History of cataract surgery (Chronic) History of total right hip arthroplasty (Chronic) History of carpal tunnel surgery of right wrist (Chronic) Family History Mother Heart disease Liver cancer Father Heart disease Social History Preferred Language: Azeri Communication Ability: drowsy Visual Impairment: No Limitations Hearing Ability: Normal Hatch Tender Required: No Beliefs That Will Affect Care: None marital status details: Current Living Situation: Spouse Feels Safe at Home: No Is there a partner from a previous relationship who is making you feel unsafe now?: No Smoking Status: Never smoker Hx Alcohol Use: No Hx Substance Use: No Review of Systems Review of Systems: ROS per HPI, all other systems reviewed and negative Physical Exam Constitutional: WD/WN, vitals as above Eyes: PERRL, conjunctivae normal, anicteric sclerae ENMT: Ears: no external ear abnormality Nose: no external nose abnormality Mouth: + dry oral mucous membranes Respiratory: normal respiratory effort; no respiratory distress Auscultation: + diminished lung sounds Cardiovascular: Rate/Rhythm: regular rate and regular rhythm Vessels: normal peripheral pulses Extremities: no edema Gastrointestinal (Abdomen): Inspection/Auscultation: normal bowel sounds; abdomen not distended Percussion/Palpation: + abdomen tender (Generalized) and abdomen soft; no hepatosplenomegaly Musculoskeletal: no cyanosis or clubbing, extremities motor strength 5/5 Skin: no rashes, warm and dry Neurologic: PERRL, EOMI, accommodation nl, no face palsy, no dysarthria Psychiatric: Orientation: oriented to person, oriented to place (Aware she is in the hospital but unsure which one) and oriented to time (Disoriented to month and day); + not alert (Somewhat lethargic however easily arousable to verbal stimuli) Affect: + flat affect Results & Data Vital Signs (Past 12 Hours) Vital Signs Temp Pulse Pulse Resp BP BP Pulse Ox 06/15/19 09:47 87 24 92/44 L 95 06/15/19 09:19 91 H 24 103/45 L 95 06/15/19 08:30 94 H 18 110/46 L 96 06/15/19 07:02 97 H 18 114/57 L 96 06/15/19 06:44 95 06/15/19 06:15 37.0 C 103 H 18 129/53 L 96 Laboratory Results Short CBC 06/15/19 Range/Units 06:17 WBC 0.85 L* (4.8-10.8) K/uL Hgb 10.3 L (12.0-16.0) g/dL Hct 30.6 L (37-47) % Plt Count 120 L (130-400) K/uL BMP 06/15/19 06:17 Sodium 138 Potassium 4.4 Chloride 109 H Carbon Dioxide 15 L BUN 43 H Creatinine 2.95 H Glucose 93 Calcium 9.0 Cardiac Enzymes 06/15/19 Range/Units 06:17 Troponin I 0.275 H* (0-0.045) ng/ml Liver Function 06/15/19 Range/Units 06:17 Total Bilirubin 0.8 (0.2-1) mg/dl AST 27 (15-37) U/L ALT 23 (12-78) U/L Alkaline Phosphatase 106 (45-117) U/L Albumin 3.3 L (3.4-5.0) gm/dl Urine 06/15/19 Range/Units 06:58 Urine Color Yellow Urine Appearance Turbid A (Clear) Urine pH 5.0 (4.5-7.5) Ur Specific [place] 1.021 (1.000-1.030) Urine Protein 1+ H (Negative) Urine Glucose (UA) Negative (Negative) Diagnostic Findings CXR IMPRESSION: No acute cardiopulmonary findings. CT ABD/PELVIS IMPRESSION: 1. Streak and motion compromised examination. 2. There is mild right hydroureteronephrosis. The distal right ureter and the right vesicoureteral junction cannot be assessed due to significant streak artifact from a right hip arthroplasty. Obstructing distal right ureteral stone is not excluded. Correlation with clinical findings and urinalysis will be required. 3. There is a small nonobstructing calculus seen in the left kidney. 4. Cholelithiasis. 5. Additional findings as above. HEAD CT IMPRESSION: 1. No significant change compared to the prior study. No acute intracranial abnormality Code Status & VTE Plan Code Status Patient is a full code as per my discussion with patient's and daughter who are both at the bedside. VTE Prophylaxis Plan VTE Prophylaxis will be ordered: Yes Supervising Physician Co-Signing Physician Notes Pt was seen and examined . Agreed with Shante DESIR exam, assessment and plan. 84-year-old female who presents the ED with altered mental status. History obtained from and daughter due to altered mental status. Patient developed yesterday left flank pain radiating into her left lower quadrant associated with nausea with a couple episodes of vomiting. said that pt was shaking in the middle of the night. In the ED, labs show pancytopenia (WBC 0.85, ANC 0.62, Hgb 10.3, platelets 120), Elevated creatinine 2.95 and lactic acid 4.8. HR elevated on admission with BP dropped in the 80's. UA positive for bacteria and Leukocytes. CT ABD/pelvis on admission is suggesting a possible obstructing distal right ureteral stone. Received IVF and abx with IV ceftriaxone and Dapto. Will send to the ICU for close monitor if requires pressors. Elevated troponin mostly related to KEYSHA and demand ischemia due to Sepsis. Denies any chest pain. Cardiology was consult and ECHO pending. Blood cx and urine cx collected in the ER. Will follow final cultures. Will repeat Lactic acid in a few hours. Check BMP and CBC in am. Continue monitor closely in ICU. MD Jesus
[2019-06-15] MEDS ORDERED: PIPERACILL/TAZOBAC CONSULT ACTIVE PRN (10:19)
[2019-06-15] MEDS ORDERED: ACETAMINOPHEN 325 MG TAB PO PRN (10:19)
[2019-06-15] MEDS ORDERED: PIPERACILLIN/TAZOBACTAM 3.375 GM in DEXTROSE 5% 100 ML IV ONE (10:45)
--- NOTE | 2019-06-15 11:52 | Communication Note ---
Date of Service: June 15, 2019, ~ 11:15 Repeat lactate 5.6, second troponin 5.650. Patient re-evaluated. Remains mildly lethargic however easily arousbable to verbal stimuli. Lungs diminished, no respiratory distress. Patient denies chest pain. BP 102/56, HR 84, SpO2 94% on room air. Ordeded an additional 1L NSS bolus. EKG unchanged from prior. Cardio consult, Dr. Lynch notified.
--- NOTE | 2019-06-15 12:11 | Communication Note ---
Date of Service: June 15, 2019 Patient now hypotensive with SBPs in the 80s despite aggressive IVF resuscitation. Will move to ICU for possible vasopressor support. Case discussed with Dr. Carbajal.
--- NOTE | 2019-06-15 12:21 | Ultrasound Report ---
RENAL ULTRASOUND CLINICAL HISTORY: Right flank pain. COMPARISON STUDY: CT of the abdomen and pelvis and KUB performed earlier today. TECHNIQUE: Sonography of the kidneys and the urinary bladder was performed. FINDINGS: Exam is mildly compromised by suboptimal penetration. The right kidney measures 8.9 cm in m aximal dimension and the left measures 9.5 cm. There is moderate bilateral renal cortical thinning. T here is no hydronephrosis. Right hydronephrosis shown on CT of June 15, 2019 is not visualized althou gh could be occult by sonography. Both ureteral jets were identified. IMPRESSION: No hydronephrosis identified. Right hydronephrosis on CT performed earlier today not visu alized although could be occult by sonography. Electronically signed by: Rd Cabral M.D. 06/15/2019 12:20 PM
[2019-06-15] MEDS ORDERED: DAPTOmycin 500 MG VIAL IV SCH (12:30)
[2019-06-15] MEDS ORDERED: DAPTOmycin 300 MG in SYRINGE 0 ML IV ONE (13:00)
--- NOTE | 2019-06-15 13:05 | Critical Care Consultation ---
Date of Consultation June 15, 2019 Assessment & Plan (1) Metabolic encephalopathy: Reason critically ill: Pt is an 84yo female with a PMHx significant for HTN, HLD, CAD who presents with AMS in the setting of septic shock. NEURO -[facility] ICU POSITIVE -Head CT 06/14- no acute process -AMS likely secondary to acute infection, UTI/pyelonephritis likely -will continue to monitor CARDS/VASCULAR -HYPOTENSION -hold home amlodipine and metoprolol -central and arterial lines in place -will continue to monitor for need of pressor support -CAD -continue home aspirin -appreciate CARDS consult RESPIRATORY -Pt on room air currently and saturating well. -Chest xray on admission-no acute cardiopulm process -Chest xray post central line placement- no pneumothorax -will continue to monitor GI -Pt currently NPO -GI Prophylaxis: Pepcid 20mg BID IV (Protonix backordered) RENAL//LYTES -Pt with KEYSHA, baseline Cr form 2015 appears to be around 1.0 -Likely pre-renal, continue Normosol @ 125 -UA indicating infection; likely contributory to AMS -continue Daptomycin and Zosyn -CT Abdomen pelvis: left calculi visualized, possible right sided calculi -Renal US: no evidence of hydronephrosis, no calculi visualized -Appreciate urology consult ID -Pt septic with bone marrow suppression and increased lactic acidosis -Likely due to UTI/pyleonephritis. -Also on differential, anaplasmosis/erlichiosis -Lyme neg, anaplasma labs pending -procal in the setting of KEYSHA will not be helpful in this case -Continue Zosyn and Daptomycin -Blood cultures and urine culture pending -Appreciate ID consult HEME -pancytopenia likely due to sepsis -Pt being treated with abx, expect counts to recover -will continue to monitor ENDO ICU Protocol for hyperglycemia PIVs intact, Central Line, Arterial line DVT prophylaxis: SCDs Code Status: Full Dispo: ICU for BP support Supervising Physician Co-Signing Physician Notes Dr. Myers was resident physician during care of patient. I separately evaluated patient for maldonado portions of the history and the exam. I was present during the critical portion of medical decision making, and I discussed the case with the resident. I generally agree with the findings and plan. Severe sepsis secondary to urinary source, central line placed for IV antibiotic administration as well as vasoactive medication administration. Patient full code I have personally spent 35 minutes of critical care time in the direct management of this patient. This is a life/limb threatening event. This includes time spent evaluating patient, direct bedside care, chart review, placing orders, interpretation of diagnostic studies, discussion with consultants, patient, and/or family members regarding treatment decisions, as well as other required patient management activities. This time is exclusive of all separately billable procedures, and teaching time and separate from and in addition to any other critical care service time. History of Present Illness Attending Physician: Colin Lee MD History of Present Illness Ms. Alas is an 84yo with a PmHx significant for CAD, HTN, HLD who presented to the ED with acute metabolic encephalopathy. She was septic with bone marrow suppression, increased lactic acidosis and admitted to the ICU due to persistently low blood pressures. Allergies Allergy/AdvReac Type Severity Reaction Status Date / Time banana AdvReac Unknown SHAKES;FEELS Verified 06/15/19 07:45 LIKE SHE IS IN ANOTHER WORLD Home Medications Home Medications Medication Instructions Recorded Confirmed Type amlodipine 5 mg PO DAILY 06/15/19 06/15/19 History aspirin 81 mg PO DAILY 06/15/19 06/15/19 History calcium carbonate [Calcium 600] 600 mg PO DAILY 06/15/19 06/15/19 History celecoxib 100 mg PO BID 06/15/19 06/15/19 History metoprolol succinate 100 mg PO DAILY 06/15/19 06/15/19 History nitroglycerin [Nitrostat] 0.4 mg SUBLINGUAL USEASDIRECTD PRN 06/15/19 06/15/19 History oxybutynin chloride 2.5 mg PO BID 06/15/19 06/15/19 History potassium chloride 20 meq PO DAILY 06/15/19 06/15/19 History triamterene-hydrochlorothiazid 1 tab PO DAILY 06/15/19 06/15/19 History Patient History Medical History CKD (chronic kidney disease), stage III (Chronic) Non-STEMI (non-ST elevated myocardial infarction) (Chronic) Hypertension (Chronic) CAD (coronary artery disease) (Chronic) Dyslipidemia (Chronic) Surgical History History of cataract surgery (Chronic) History of total right hip arthroplasty (Chronic) History of carpal tunnel surgery of right wrist (Chronic) Family History Mother Heart disease Liver cancer Father Heart disease Social History Preferred Language: Swedish Communication Ability: drowsy Visual Impairment: No Limitations Hearing Ability: Normal Clinical Education Manager Required: No Beliefs That Will Affect Care: None marital status details: Current Living Situation: Spouse Other Information That Helps Us Care for You: No Feels Safe at Home: No Is there a partner from a previous relationship who is making you feel unsafe now?: No Any Concerns about Your Family Situation: No Would You Like to Speak to Someone About Your Situation: No Safety Concerns: Feels Safe At This Time Smoking Status: Never smoker Hx Alcohol Use: No Hx Substance Use: No Review of Systems Review of Systems: Unobtainable due to cognitive status Physical Exam Physical Exam: General: Lethargic, resting in bed HEENT: NC/AT Chest: Nontender to palpation. CV: RRR, Normal s1, s2. Resp: Breath sounds clear bilaterally on front, no increased effort of breathing. Abdomen: Soft, nontender. No guarding. Extremities: No edema. Results & Data Vital Signs (Past 12 Hours) Vital Signs Temp Pulse Pulse Resp BP BP Pulse Ox 06/15/19 11:37 36.9 C 85 20 92/47 L 92 06/15/19 10:27 37.2 C 92 H 22 98/59 L 93 06/15/19 10:19 06/15/19 10:09 37.6 C H 91 H 18 103/62 95 06/15/19 09:47 87 24 92/44 L 95 06/15/19 09:19 91 H 24 103/45 L 95 06/15/19 08:30 94 H 18 110/46 L 96 06/15/19 07:02 97 H 18 114/57 L 96 06/15/19 06:44 95 06/15/19 06:15 37.0 C 103 H 18 129/53 L 96 Pulse Ox 06/15/19 11:37 06/15/19 10:27 06/15/19 10:19 93 06/15/19 10:09 06/15/19 09:47 07/19/19 09:19 06/15/19 08:30 06/15/19 07:02 06/15/19 06:44 06/15/19 06:15 PG Care Time/CCT Total # of Minutes Spent Total Time Spent: 35 Total Time Spent with Patient: Total time spent is greater than 50% in coordination of care (as documented) at patient's floor/unit and/or counseling patient:
[2019-06-15] MEDS: SODIUM CHLORIDE 0.9% 500 ML IV SCH ×2 (13:13→15:25)
--- NOTE | 2019-06-15 14:52 | XRay Report ---
SINGLE VIEW CHEST CLINICAL HISTORY: Central venous catheter placement. FINDINGS: An AP, portable, upright chest radiograph is compared to study dated 06/15/2019. The examina tion is degraded by portable technique and patient rotation. A right internal jugular central venou s catheter has been placed. The tip projects over the SVC. The heart is mildly enlarged and there is atherosclerotic calcification of the thoracic aorta. The pulmonary vasculature is noncongested. Bibas ilar atelectasis is observed. No airspace consolidation or large pleural effusion is identified. No p neumothorax is seen. The skeletal structures are osteopenic. The bony thorax is grossly intact. Advan yunier degenerative change is present in the shoulders, right greater than left. Calcified joint bodies are seen on the right. IMPRESSION: 1. A right internal jugular central venous catheter has been placed as detailed above. 2. No pneumothorax is identified post procedure. 3. Mild cardiac enlargement with no acute cardiopulmonary abnormality Electronically signed by: Deo Sales M.D. 06/15/2019 2:51 PM
[2019-06-15 14:58] LABS: Hematocrit (blood only) 25.9 % (37-47); Hemoglobin 8.7 g/dL (12.0-16.0); Mean Corpuscular Volume 96.3 fL (80-100); RDW Coefficient of Variation 14.4 % (11.5-14.5); RDW Standard Deviation 50.6 fL (36.4-46.3); Red Blood Count 2.69 M/uL (4.2-5.4); White Blood Count 5.46 K/uL (4.8-10.8)
[2019-06-15 15:20] LABS: Albumin Globulin Ratio 0.8 (0.9-2); Albumin Level 2.3 gm/dl (3.4-5.0); BUN Creatinine Ratio 15.9 (10-20); Calcium 7.6 mg/dl (8.5-10.1); Creatinine Clr Calc Pharmacy 14.6 ml/min; Est GFR (Non-African American) 17.2; Potassium 3.9 mmol/L (3.5-5.1); Total Protein 5.3 gm/dl (6.4-8.2)
[2019-06-15 15:24] LABS: Base Excess VBG -9.9 mEq/L; pH VBG 7.35 (7.36-7.41)
[2019-06-15 15:24] LABS: Base Excess ABG -10.1 mEq/L (-9-1.8); HCO3 ABG 13 mmol/L (19-24); Oxygen Saturation ABG 92.2 % (90-95); PCO2 ABG 20 mmHg (35-46); PO2 ABG 70 mm/Hg (80-95); pH ABG 7.42 (7.35-7.45)
[2019-06-15 15:25] LABS: Echinocytes 2+; Eosinophils # (auto) 0.03 K/uL (0-0.5); Eosinophils % (auto) 0.5 %; Immature Granulocytes # (auto) 0.39 K/uL (0.00-0.02); Immature Granulocytes % (auto) 7.1 %; Lymphocytes # (auto) 0.31 K/uL (1.2-3.4); Lymphocytes % (auto) 5.7 %; Mean Corpuscular Hgb Conc 33.6 g/dL (32-36); Mean Platelet Volume 10.1 fL (7.4-10.4); Monocytes # (auto) 0.21 K/uL (0.11-0.59); Monocytes % (auto) 3.8 %; Neutrophils # (auto) 4.52 K/uL (1.4-6.5); Neutrophils % (auto) 82.9 %; Platelet Count 86 K/uL (130-400); Platelet Estimate Decreased (Normal)
[2019-06-15 15:26] LABS: Allen Test ART LINE (Pos)
[2019-06-15] MEDS: NORMOSOL-R 1,000 ML IV SCH ×2 (15:26→22:50)
[2019-06-15 15:35] LABS: INR 1.3 (0.9-1.1); Prothrombin Time 13.2 Seconds (9.0-12.0)
[2019-06-15] MEDS: THIAMINE HCL 100 MG TAB PO SCH (16:10)
--- NOTE | 2019-06-15 17:01 | Cardiology Consultation ---
Date of Consultation June 15, 2019 Assessment & Plan (1) Elevated troponin I level: (2) CAD (coronary artery disease): (3) UTI (urinary tract infection): (4) Neutropenia: (5) Thrombocytopenia: Complex 84-year-old female presents with altered mental status and severe sepsis. Elevated troponins noted without ischemic ECG changes or evidence of regional wall motion abnormality on echocardiogram. Suspect type II event in the setting of severe sepsis and hypotension. Patient currently without chest discomfort. Would not recommend anticoagulation at this time due to pancytopenia and declining platelet levels. No signs/symptoms of GI/ blood loss currently. Antibiotics as per primary service. Continue IV hydration per the direction of the critical care service. Continue telemetry monitoring. Cardiology will continue to follow patient during hospitalization. History of Present Illness Reason for Consultation: Elevated troponin Requesting Physician: Shante DESIR Attending Physician: Colin Lee MD History of Present Illness 84-year-old female presented emergency department with altered mental status. Diagnosed with severe sepsis in the ER. Initially contacted regarding patient's ECG. There were concerns regarding possible ST changes. ECG reviewed. No evidence of ischemia. Troponin subsequently found to be elevated. Patient seen and examined at the bedside. Denies any chest discomfort or shortness of breath. Reports diffuse abdominal pain. Preliminary review of bedside 2D transthoracic echocardiogram demonstrates preserved LV systolic function without regional wall motion abnormality. Patient noted to be leukopenic and thrombocytopenic. There are concerns regarding possible anaplasmosis infection. Currently receiving empiric antibiotic therapy. Transferred to the intensive care unit due to hypotension and severe sepsis. Blood pressure improved with IV hydration. Patient offers no other concerns/complaints at this time. Allergies Allergy/AdvReac Type Severity Reaction Status Date / Time banana AdvReac Unknown SHAKES;FEELS Verified 06/15/19 07:45 LIKE SHE IS IN ANOTHER WORLD Home Medications Home Medications Medication Instructions Recorded Confirmed Type amlodipine 5 mg PO DAILY 06/15/19 06/15/19 History aspirin 81 mg PO DAILY 06/15/19 06/15/19 History calcium carbonate [Calcium 600] 600 mg PO DAILY 06/15/19 06/15/19 History celecoxib 100 mg PO BID 06/15/19 06/15/19 History metoprolol succinate 100 mg PO DAILY 06/15/19 06/15/19 History nitroglycerin [Nitrostat] 0.4 mg SUBLINGUAL USEASDIRECTD PRN 06/15/19 06/15/19 History oxybutynin chloride 2.5 mg PO BID 06/15/19 06/15/19 History potassium chloride 20 meq PO DAILY 06/15/19 06/15/19 History triamterene-hydrochlorothiazid 1 tab PO DAILY 06/15/19 06/15/19 History Patient History Medical History CKD (chronic kidney disease), stage III (Chronic) Non-STEMI (non-ST elevated myocardial infarction) (Chronic) Hypertension (Chronic) CAD (coronary artery disease) (Chronic) Dyslipidemia (Chronic) Surgical History History of cataract surgery (Chronic) History of total right hip arthroplasty (Chronic) History of carpal tunnel surgery of right wrist (Chronic) Family History Mother Heart disease Liver cancer Father Heart disease Social History Preferred Language: Japanese Communication Ability: drowsy Visual Impairment: No Limitations Hearing Ability: Normal 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 Beliefs That Will Affect Care: None marital status details: Current Living Situation: Spouse Other Information That Helps Us Care for You: No Feels Safe at Home: No Is there a partner from a previous relationship who is making you feel unsafe now?: No Any Concerns about Your Family Situation: No Would You Like to Speak to Someone About Your Situation: No Safety Concerns: Feels Safe At This Time Smoking Status: Never smoker Hx Alcohol Use: No Hx Substance Use: No Review of Systems Review of Systems: All systems reviewed & are unremarkable except as noted in HPI & below Physical Exam Physical Exam: General: NAD, well nourished. Chronically ill. Poor historian. HEENT: Normocephalic. Atraumatic. Conjunctiva pink, no scleral icterus. Neck: No carotid bruits, the carotid upstrokes are brisk. No JVD. No HJR Heart: Regular normal S-1 and S-2 no S-3 or S-4 gallop. No murmurs or rub appreciated. PMI is not displaced. No RV heave. Lungs: Clear bilateral without rales , rhonchi, or wheeze. Abdomen: Diffuse tenderness to palpation. No rebound or guarding. Normal bowel sounds. Extremities: No clubbing, cyanosis, or edema. Pulses: radial=2/4, posterior tibial=2/4. Neuro: Cranial nerves grossly intact. Unable to completely assess secondary to altered mental status. Results & Data Vital Signs (Past 12 Hours) Vital Signs Temp Pulse Pulse Pulse Resp BP BP 06/15/19 16:00 87 16 124/50 L 06/15/19 15:00 36.3 C L 82 16 109/51 L 06/15/19 14:45 84 16 126/63 06/15/19 14:15 83 16 107/46 L 06/15/19 14:00 86 16 111/45 L 06/15/19 13:30 80 16 104/58 L 06/15/19 13:15 82 16 100/46 L 06/15/19 13:00 36.3 C L 85 16 107/44 L 06/15/19 12:59 87 12 87/46 L 06/15/19 12:45 86 94/57 L 06/15/19 12:20 83 92/55 L 06/15/19 12:00 84 86/44 L 06/15/19 11:40 85 24 86/39 L 06/15/19 11:37 36.9 C 85 20 92/47 L 06/15/19 10:27 37.2 C 92 H 22 98/59 L 06/15/19 10:19 06/15/19 10:09 37.6 C H 91 H 18 103/62 06/15/19 09:47 87 24 92/44 L 06/15/19 09:19 91 H 24 103/45 L 06/15/19 08:30 94 H 18 110/46 L 06/15/19 07:02 97 H 18 114/57 L 06/15/19 06:44 06/15/19 06:15 37.0 C 103 H 18 129/53 L Pulse Ox Pulse Ox 06/15/19 16:00 95 06/15/19 15:00 92 06/15/19 14:45 95 06/15/19 14:15 94 06/15/19 14:00 95 06/15/19 13:30 94 06/15/19 13:15 94 06/15/19 13:00 94 06/15/19 12:59 93 06/15/19 12:45 06/15/19 12:20 06/15/19 12:00 06/15/19 11:40 06/15/19 11:37 92 06/15/19 10:27 93 06/15/19 10:19 93 06/15/19 10:09 95 06/15/19 09:47 95 06/15/19 09:19 95 06/15/19 08:30 96 06/15/19 07:02 96 06/15/19 06:44 95 06/15/19 06:15 96 (1) UTI (urinary tract infection) Hematuria presence: with hematuria Urinary tract infection type: site unspecified Qualified Code(s): N39.0 - Urinary tract infection, site not specified; R31.9 - Hematuria, unspecified (2) CAD (coronary artery disease) Associated angina: without angina Coronary Disease-Associated Artery/Lesion type: [place] artery [place] vs. transplanted heart: [place] heart Qualified Code(s): I25.10 - Atherosclerotic heart disease of [place] coronary artery without angina pectoris (3) Neutropenia Neutropenia type: unspecified Qualified Code(s): D70.9 - Neutropenia, unspecified
--- NOTE | 2019-06-15 19:19 | Infectious Disease Consult ---
Date of Consultation June 15, 2019 Assessment & Plan (1) Sepsis: 84-year-old female with sepsis, likely from urinary tract infection setting of nephrolithiasis, tickborne infection appears less likely given negative smear review by pathology. Patient to continue on daptomycin and Zosyn pending final urinary culture results. Will follow. (2) UTI (urinary tract infection): History of Present Illness Reason for Consultation: Sepsis, daptomycin use Attending Physician: Colin Lee MD History of Present Illness History obtained from medical staff and medical records as patient unable to provide adequate history. 84-year-old female with history of stage III chronic kidney disease, coronary artery disease, hypertension, hyperlipidemia, who reportedly was in her usual state of health until 2 days prior to admission when she noted left flank pain radiating down to her left groin. Following day, patient was found by her with altered mental status with shaking chills. She was brought to the hospital and found to have evidence of sepsis with marked neutropenia and thrombocytopenia. Urinalysis consistent with infection and CT scan revealed nephrolithiasis with possibility of obstructive uropathy. Patient has been started empirically on daptomycin and Zosyn. Blood cultures are pending. Peripheral smear review by pathology shows no obvious evidence of Anaplasma infection. Allergies Allergy/AdvReac Type Severity Reaction Status Date / Time banana AdvReac Unknown ALTHEA;DAVIDS Verified 06/15/19 07:45 LIKE SHE IS IN ANOTHER WORLD Home Medications Home Medications Medication Instructions Recorded Confirmed Type amlodipine 5 mg PO DAILY 06/15/19 06/15/19 History aspirin 81 mg PO DAILY 06/15/19 06/15/19 History calcium carbonate [Calcium 600] 600 mg PO DAILY 06/15/19 06/15/19 History celecoxib 100 mg PO BID 06/15/19 06/15/19 History metoprolol succinate 100 mg PO DAILY 06/15/19 06/15/19 History nitroglycerin [Nitrostat] 0.4 mg SUBLINGUAL USEASDIRECTD PRN 06/15/19 06/15/19 History oxybutynin chloride 2.5 mg PO BID 06/15/19 06/15/19 History potassium chloride 20 meq PO DAILY 06/15/19 06/15/19 History triamterene-hydrochlorothiazid 1 tab PO DAILY 06/15/19 06/15/19 History Patient History Medical History CKD (chronic kidney disease), stage III (Chronic) Non-STEMI (non-ST elevated myocardial infarction) (Chronic) Hypertension (Chronic) CAD (coronary artery disease) (Chronic) Dyslipidemia (Chronic) Surgical History History of cataract surgery (Chronic) History of total right hip arthroplasty (Chronic) History of carpal tunnel surgery of right wrist (Chronic) Family History Mother Heart disease Liver cancer Father Heart disease Social History Preferred Language: Guyanese Communication Ability: drowsy Visual Impairment: No Limitations Hearing Ability: Normal Tube Tester Required: No Beliefs That Will Affect Care: None marital status details: Current Living Situation: Spouse Other Information That Helps Us Care for You: No Feels Safe at Home: No Is there a partner from a previous relationship who is making you feel unsafe now?: No Any Concerns about Your Family Situation: No Would You Like to Speak to Someone About Your Situation: No Safety Concerns: Feels Safe At This Time Smoking Status: Never smoker Hx Alcohol Use: No Hx Substance Use: No Review of Systems Review of Systems: All systems reviewed & are unremarkable except as noted in HPI & below Physical Exam Constitutional: WD/WN, vitals as above + ill appearing and comfortable; no acute distress Eyes: PERRL, conjunctivae normal, anicteric sclerae ENMT: external ear and nose normal, oropharynx normal Neck: trachea midline, no thyromegaly neck nontender Respiratory: normal respiratory effort, lungs clear to auscultation normal percussion; does not use accessory muscles Cardiovascular: Rate/Rhythm: regular rate and regular rhythm Heart Sounds: normal S1 and normal S2; no gallop, no murmur and no cardiac rub Vessels: normal peripheral pulses; no JVD Gastrointestinal (Abdomen): Inspection/Auscultation: abdomen normal to inspection Percussion/Palpation: + abdomen tender; no hepatosplenomegaly and no abdominal mass Musculoskeletal: no cyanosis or clubbing, extremities motor strength 5/5 Spine: thoracic spine normal to inspection and lumbar spine normal to inspection; no cervical spinal tenderness Skin: no rashes, warm and dry normal turgor; no lesions Neurologic: patellar DTR's 2+ bilat, sensation intact no focal motor deficits Psychiatric: A+Ox3, euthymic affect Orientation: cooperative Lymphatic: no cervical or axillary lymphadenopathy no inguinal lympha denopathy Results & Data Vital Signs (Past 12 Hours) Vital Signs Temp Pulse Pulse Pulse Resp BP BP 06/15/19 18:00 80 16 130/57 L 06/15/19 17:00 80 16 118/52 L 06/15/19 16:00 87 16 124/50 L 06/15/19 15:00 36.3 C L 82 16 109/51 L 06/15/19 14:45 84 16 126/63 06/15/19 14:15 83 16 107/46 L 06/15/19 14:00 86 16 111/45 L 06/15/19 13:30 80 16 104/58 L 06/15/19 13:15 82 16 100/46 L 06/15/19 13:00 36.3 C L 85 16 107/44 L 06/15/19 12:59 87 12 87/46 L 06/15/19 12:45 86 94/57 L 06/15/19 12:20 83 92/55 L 06/15/19 12:00 84 86/44 L 06/15/19 11:40 85 24 86/39 L 06/15/19 11:37 36.9 C 85 20 92/47 L 06/15/19 10:27 37.2 C 92 H 22 98/59 L 06/15/19 10:19 06/15/19 10:09 37.6 C H 91 H 18 103/62 06/15/19 09:47 87 24 92/44 L 06/15/19 09:19 91 H 24 103/45 L 06/15/19 08:30 94 H 18 110/46 L Pulse Ox Pulse Ox 06/15/19 18:00 94 06/15/19 17:00 94 06/15/19 16:00 95 06/15/19 15:00 92 06/15/19 14:45 95 06/15/19 14:15 94 06/15/19 14:00 95 06/15/19 13:30 94 06/15/19 13:15 94 06/15/19 13:00 94 06/15/19 12:59 93 06/15/19 12:45 06/15/19 12:20 06/15/19 12:00 06/15/19 11:40 06/15/19 11:37 92 06/15/19 10:27 93 06/15/19 10:19 93 06/15/19 10:09 95 06/15/19 09:47 95 06/15/19 09:19 95 06/15/19 08:30 96 Laboratory Results Short CBC 06/15/19 06/15/19 Range/Units 06:17 14:51 WBC 0.85 L* 5.46 (4.8-10.8) K/uL Hgb 10.3 L 8.7 L (12.0-16.0) g/dL Hct 30.6 L 25.9 L (37-47) % Plt Count 120 L 86 L (130-400) K/uL BMP 06/15/19 06/15/19 06:17 14:51 Sodium 138 145 D Potassium 4.4 3.9 Chloride 109 H 120 H Carbon Dioxide 15 L 12 L BUN 43 H 39 H Creatinine 2.95 H 2.48 H D Glucose 93 89 Calcium 9.0 7.6 L D Cardiac Enzymes 06/15/19 06/15/19 06/15/19 Range/Units 06:17 10:33 15:09 Troponin I 0.275 H* 5.650 H* 9.330 H* (0-0.045) ng/ml Liver Function 06/15/19 06/15/19 Range/Units 06:17 14:51 Total Bilirubin 0.8 1.0 (0.2-1) mg/dl AST 27 55 H (15-37) U/L ALT 23 28 (12-78) U/L Alkaline Phosphatase 106 65 (45-117) U/L Albumin 3.3 L 2.3 L (3.4-5.0) gm/dl Urine 06/15/19 Range/Units 06:58 Urine Color Yellow Urine Appearance Turbid A (Clear) Urine pH 5.0 (4.5-7.5) Ur Specific Accord 1.021 (1.000-1.030) Urine Protein 1+ H (Negative) Urine Glucose (UA) Negative (Negative) Diagnostic Findings Laboratory Results - last 48 hr 06/15/19 06/15/19 06/15/19 06:17 06:17 06:17 WBC 0.85 L* RBC 3.15 L Hgb 10.3 L Hct 30.6 L MCV 97.1 MCH 32.7 MCHC 33.7 RDW Std Deviation 49.2 H RDW Coeff of Jose 14.0 Plt Count 120 L MPV 10.3 Immature Gran % (Auto) 0.0 Neut % (Auto) 72.9 Lymph % (Auto) 20.0 Maverick % (Auto) 1.2 Eos % (Auto) 5.9 Baso % (Auto) 0.0 Immature Gran # (Auto) 0.00 Neut # (Auto) 0.62 L* Lymph # (Auto) 0.17 L Maverick # (Auto) 0.01 L Eos # (Auto) 0.05 Baso # (Auto) 0.00 Toxic Granulation 1+ Toxic Vacuolation 3+ Dohle Bodies 2+ Platelet Estimate Giant Platelets 1+ Echinocytes Peripher Smr Path Cons PT 12.3 H INR 1.2 H ABG pH ABG pCO2 ABG pO2 ABG HCO3 ABG O2 Saturation ABG Base Excess Oracio Test VBG pH VBG pCO2 VBG pO2 VBG HCO3 VBG O2 Saturation VBG Base Excess Barometric Pressure Oxygen Given Sodium 138 Potassium 4.4 Chloride 109 H Carbon Dioxide 15 L Anion Gap 14.0 H BUN 43 H Creatinine 2.95 H Est Cr Clr Drug Dosing 12.2 Est GFR ( Amer) 16.2 Est GFR (Non-Af Amer) 14.0 BUN/Creatinine Ratio 14.6 Glucose 93 POC Glucose Lactate Calcium 9.0 Total Bilirubin 0.8 AST 27 ALT 23 Alkaline Phosphatase 106 Troponin I 0.275 H* Total Protein 7.0 Albumin 3.3 L Globulin 3.7 Albumin/Globulin Ratio 0.9 TSH 0.568 Urine Color Urine Appearance Urine pH Ur Specific Accord Urine Protein Urine Glucose (UA) Urine Ketones Urine Blood Urine Nitrite Urine Bilirubin Urine Urobilinogen Ur Leukocyte Esterase Urine WBC (Auto) Urine RBC (Auto) U Hyaline Cast (Auto) U Epithel Cells (Auto) Urine Bacteria (Auto) Nasal Screen MRSA (PCR) Lyme Disease IgG Ab Lyme Disease IgM Ab 06/15/19 06/15/19 06/15/19 06:17 06:58 07:14 WBC RBC Hgb Hct MCV MCH MCHC RDW Std Deviation RDW Coeff of Jose Plt Count MPV Immature Gran % (Auto) Neut % (Auto) Lymph % (Auto) Maverick % (Auto) Eos % (Auto) Baso % (Auto) Immature Gran # (Auto) Neut # (Auto) Lymph # (Auto) Maverick # (Auto) Eos # (Auto) Baso # (Auto) Toxic Granulation Toxic Vacuolation Dohle Bodies Platelet Estimate Giant Platelets Echinocytes Peripher Smr Path Cons PT INR ABG pH ABG pCO2 ABG pO2 ABG HCO3 ABG O2 Saturation ABG Base Excess Oracio Test VBG pH VBG pCO2 VBG pO2 VBG HCO3 VBG O2 Saturation VBG Base Excess Barometric Pressure Oxygen Given Sodium Potassium Chloride Carbon Dioxide Anion Gap BUN Creatinine Est Cr Clr Drug Dosing Est GFR ( Amer) Est GFR (Non-Af Amer) BUN/Creatinine Ratio Glucose POC Glucose Lactate 4.8 H* Calcium Total Bilirubin AST ALT Alkaline Phosphatase Troponin I Total Protein Albumin Globulin Albumin/Globulin Ratio TSH Urine Color Yellow Urine Appearance Turbid A Urine pH 5.0 Ur Specific Accord 1.021 Urine Protein 1+ H Urine Glucose (UA) Negative Urine Ketones Trace H Urine Blood 3+ H Urine Nitrite Negative Urine Bilirubin Negative Urine Urobilinogen Negative Ur Leukocyte Esterase 3+ H Urine WBC (Auto) >30 H Urine RBC (Auto) >30 H U Hyaline Cast (Auto) 1-5 U Epithel Cells (Auto) 20-30 H Urine Bacteria (Auto) 4+ H Nasal Screen MRSA (PCR) Lyme Disease IgG Ab Negative Lyme Disease IgM Ab Negative 06/15/19 06/15/19 06/15/19 10:33 10:33 11:19 WBC RBC Hgb Hct MCV MCH MCHC RDW Std Deviation RDW Coeff of Jose Plt Count MPV Immature Gran % (Auto) Neut % (Auto) Lymph % (Auto) Maverick % (Auto) Eos % (Auto) Baso % (Auto) Immature Gran # (Auto) Neut # (Auto) Lymph # (Auto) Maverick # (Auto) Eos # (Auto) Baso # (Auto) Toxic Granulation Toxic Vacuolation Dohle Bodies Platelet Estimate Giant Platelets Echinocytes Peripher Smr Path Cons PT INR ABG pH ABG pCO2 ABG pO2 ABG HCO3 ABG O2 Saturation ABG Base Excess Oracio Test VBG pH VBG pCO2 VBG pO2 VBG HCO3 VBG O2 Saturation VBG Base Excess Barometric Pressure Oxygen Given Sodium Potassium Chloride Carbon Dioxide Anion Gap BUN Creatinine Est Cr Clr Drug Dosing Est GFR ( Amer) Est GFR (Non-Af Amer) BUN/Creatinine Ratio Glucose POC Glucose Lactate 5.6 H* Calcium Total Bilirubin AST ALT Alkaline Phosphatase Troponin I 5.650 H* Total Protein Albumin Globulin Albumin/Globulin Ratio TSH Urine Color Urine Appearance Urine pH Ur Specific Accord Urine Protein Urine Glucose (UA) Urine Ketones Urine Blood Urine Nitrite Urine Bilirubin Urine Urobilinogen Ur Leukocyte Esterase Urine WBC (Auto) Urine RBC (Auto) U Hyaline Cast (Auto) U Epithel Cells (Auto) Urine Bacteria (Auto) Nasal Screen MRSA (PCR) Negative Lyme Disease IgG Ab Lyme Disease IgM Ab 06/15/19 06/15/19 06/15/19 13:01 14:51 14:51 WBC 5.46 RBC 2.69 L Hgb 8.7 L Hct 25.9 L MCV 96.3 MCH 32.3 MCHC 33.6 RDW Std Deviation 50.6 H RDW Coeff of Jose 14.4 Plt Count 86 L MPV 10.1 Immature Gran % (Auto) 7.1 Neut % (Auto) 82.9 Lymph % (Auto) 5.7 Maverick % (Auto) 3.8 Eos % (Auto) 0.5 Baso % (Auto) 0.0 Immature Gran # (Auto) 0.39 H Neut # (Auto) 4.52 Lymph # (Auto) 0.31 L Maverick # (Auto) 0.21 Eos # (Auto) 0.03 Baso # (Auto) 0.00 Toxic Granulation Toxic Vacuolation Dohle Bodies Platelet Estimate Decreased L Giant Platelets Echinocytes 2+ Peripher Smr Path Cons PT INR ABG pH ABG pCO2 ABG pO2 ABG HCO3 ABG O2 Saturation ABG Base Excess Oracio Test VBG pH VBG pCO2 VBG pO2 VBG HCO3 VBG O2 Saturation VBG Base Excess Barometric Pressure Oxygen Given Sodium 145 D Potassium 3.9 Chloride 120 H Carbon Dioxide 12 L Anion Gap 13.0 H BUN 39 H Creatinine 2.48 H D Est Cr Clr Drug Dosing 14.6 Est GFR ( Amer) 20.0 Est GFR (Non-Af Amer) 17.2 BUN/Creatinine Ratio 15.9 Glucose 89 POC Glucose 75 Lactate Calcium 7.6 L D Total Bilirubin 1.0 AST 55 H ALT 28 Alkaline Phosphatase 65 Troponin I Total Protein 5.3 L D Albumin 2.3 L Globulin 3.0 Albumin/Globulin Ratio 0.8 L TSH Urine Color Urine Appearance Urine pH Ur Specific Accord Urine Protein Urine Glucose (UA) Urine Ketones Urine Blood Urine Nitrite Urine Bilirubin Urine Urobilinogen Ur Leukocyte Esterase Urine WBC (Auto) Urine RBC (Auto) U Hyaline Cast (Auto) U Epithel Cells (Auto) Urine Bacteria (Auto) Nasal Screen MRSA (PCR) Lyme Disease IgG Ab Lyme Disease IgM Ab 06/15/19 06/15/19 06/15/19 14:51 15:08 15:08 WBC RBC Hgb Hct MCV MCH MCHC RDW Std Deviation RDW Coeff of Jose Plt Count MPV Immature Gran % (Auto) Neut % (Auto) Lymph % (Auto) Maverick % (Auto) Eos % (Auto) Baso % (Auto) Immature Gran # (Auto) Neut # (Auto) Lymph # (Auto) Maverick # (Auto) Eos # (Auto) Baso # (Auto) Toxic Granulation Toxic Vacuolation Dohle Bodies Platelet Estimate Giant Platelets Echinocytes Peripher Smr Path Cons PT 13.2 H INR 1.3 H ABG pH ABG pCO2 ABG pO2 ABG HCO3 ABG O2 Saturation ABG Base Excess Oracio Test VBG pH 7.35 L VBG pCO2 27 L VBG pO2 32 VBG HCO3 15 VBG O2 Saturation 60.0 VBG Base Excess -9.9 Barometric Pressure 731.3 Oxygen Given Sodium Potassium Chloride Carbon Dioxide Anion Gap BUN Creatinine Est Cr Clr Drug Dosing Est GFR ( Amer) Est GFR (Non-Af Amer) BUN/Creatinine Ratio Glucose POC Glucose Lactate 3.9 H* Calcium Total Bilirubin AST ALT Alkaline Phosphatase Troponin I Total Protein Albumin Globulin Albumin/Globulin Ratio TSH Urine Color Urine Appearance Urine pH Ur Specific Accord Urine Protein Urine Glucose (UA) Urine Ketones Urine Blood Urine Nitrite Urine Bilirubin Urine Urobilinogen Ur Leukocyte Esterase Urine WBC (Auto) Urine RBC (Auto) U Hyaline Cast (Auto) U Epithel Cells (Auto) Urine Bacteria (Auto) Nasal Screen MRSA (PCR) Lyme Disease IgG Ab Lyme Disease IgM Ab 06/15/19 06/15/19 15:09 15:12 WBC RBC Hgb Hct MCV MCH MCHC RDW Std Deviation RDW Coeff of Jose Plt Count MPV Immature Gran % (Auto) Neut % (Auto) Lymph % (Auto) Maverick % (Auto) Eos % (Auto) Baso % (Auto) Immature Gran # (Auto) Neut # (Auto) Lymph # (Auto) Maverick # (Auto) Eos # (Auto) Baso # (Auto) Toxic Granulation Toxic Vacuolation Dohle Bodies Platelet Estimate Giant Platelets Echinocytes Peripher Smr Path Cons PT INR ABG pH 7.42 ABG pCO2 20 L ABG pO2 70 L ABG HCO3 13 L ABG O2 Saturation 92.2 ABG Base Excess -10.1 L Oracio Test ART LINE VBG pH VBG pCO2 VBG pO2 VBG HCO3 VBG O2 Saturation VBG Base Excess Barometric Pressure 730.6 Oxygen Given ROOM AIR Sodium Potassium Chloride Carbon Dioxide Anion Gap BUN Creatinine Est Cr Clr Drug Dosing Est GFR ( Amer) Est GFR (Non-Af Amer) BUN/Creatinine Ratio Glucose POC Glucose Lactate Calcium Total Bilirubin AST ALT Alkaline Phosphatase Troponin I 9.330 H* Total Protein Albumin Globulin Albumin/Globulin Ratio TSH Urine Color Urine Appearance Urine pH Ur Specific Accord Urine Protein Urine Glucose (UA) Urine Ketones Urine Blood Urine Nitrite Urine Bilirubin Urine Urobilinogen Ur Leukocyte Esterase Urine WBC (Auto) Urine RBC (Auto) U Hyaline Cast (Auto) U Epithel Cells (Auto) Urine Bacteria (Auto) Nasal Screen MRSA (PCR) Lyme Disease IgG Ab Lyme Disease IgM Ab CLINICAL HISTORY: Central venous catheter placement. FINDINGS: An AP, portable, upright chest radiograph is compared to study dated 06/15/2019. The examination is degraded by portable technique and patient rotation. A right internal jugular central venous catheter has been placed. The tip projects over the SVC. The heart is mildly enlarged and there is atherosclerotic calcification of the thoracic aorta. The pulmonary vasculature is noncongested. Bibasilar atelectasis is observed. No airspace consolidation or large pleural effusion is identified. No pneumothorax is seen. The skeletal structures are osteopenic. The bony thorax is grossly intact. Advanced degenerative change is present in the shoulders, right greater than left. Calcified joint bodies are seen on the right. IMPRESSION: 1. A right internal jugular central venous catheter has been placed as detailed above. 2. No pneumothorax is identified post procedure. 3. Mild cardiac enlargement with no acute cardiopulmonary abnormality Electronically signed by: Deo Sales M.D. 06/15/2019 2:51 PM Dictated: 06/15/19 [id number] (1) UTI (urinary tract infection) Hematuria presence: with hematuria Urinary tract infection type: site unspecified Qualified Code(s): N39.0 - Urinary tract infection, site not specified; R31.9 - Hematuria, unspecified (2) Sepsis Sepsis type: sepsis due to unspecified organism Qualified Code(s): A41.9 - Sepsis, unspecified organism
[2019-06-15 19:38] LABS: iSTAT Arterial Blood Gas HCO3 11 meg/L (19-24); iSTAT Arterial Blood Gas pCO2 19 mmHg (35-46); iSTAT Arterial Blood Gas pH 7.35 (7.35-7.45); iSTAT Carbon Dioxide 11 mEq/l (24-31); iSTAT Site Art Line
[2019-06-15 20:02] LABS: Calcium 7.4 mg/dl (8.5-10.1); Creatinine Clr Calc Pharmacy 15.2 ml/min; Est GFR (African American) 20.9
[2019-06-15] MEDS: PIPERACILLIN/TAZOBACTAM 4.5 GM in DEXTROSE 5% 100 ML IV SCH (20:05)
[2019-06-15 20:12] LABS: Fibrinogen 432 mg/dl (184-400)
[2019-06-15] MEDS: OXYBUTYNIN CHLORIDE 5 MG TAB PO SCH (21:04)
[2019-06-15] MEDS: METOPROLOL TARTRATE 50 MG TAB PO SCH (21:05)
[2019-06-15] MEDS: FAMOTIDINE 20 MG in SYRINGE 3 ML IV SCH (21:06)
[2019-06-15 23:44] LABS: iSTAT Art Bld Gas pCO2 Correct 22 mmHg (35-46); iSTAT Art Bld Gas pH Corrected 7.315 (7.35-7.45); iSTAT Arterial Blood Gas HCO3 11 meg/L (19-24); iSTAT Arterial Blood Gas pCO2 22 mmHg (35-46); iSTAT Arterial Blood Gas pH 7.32 (7.35-7.45); iSTAT Carbon Dioxide 12 mEq/l (24-31); iSTAT Site Art Line
[2019-06-16 01:55] LABS: BUN Creatinine Ratio 19.5 (10-20); Calcium 7.2 mg/dl (8.5-10.1); Creatinine Clr Calc Pharmacy 16.9 ml/min; Est GFR (African American) 23.7; Est GFR (Non-African American) 20.5; Potassium 4.1 mmol/L (3.5-5.1)
[2019-06-16 04:36] LABS: Hematocrit (blood only) 25.3 % (37-47); Hemoglobin 8.5 g/dL (12.0-16.0); Mean Corpuscular Hgb Conc 33.6 g/dL (32-36); Mean Corpuscular Volume 95.8 fL (80-100); RDW Coefficient of Variation 14.8 % (11.5-14.5); RDW Standard Deviation 51.7 fL (36.4-46.3); Red Blood Count 2.64 M/uL (4.2-5.4); White Blood Count 10.07 K/uL (4.8-10.8)
[2019-06-16 04:38] LABS: Mean Platelet Volume 10.5 fL (7.4-10.4); Platelet Count 99 K/uL (130-400)
[2019-06-16 04:54] LABS: INR 1.4 (0.9-1.1); Partial Thromboplastin Ratio 1.3; Partial Thromboplastin Time 35.3 Seconds (21.0-31.0); Prothrombin Time 13.6 Seconds (9.0-12.0)
[2019-06-16 04:57] LABS: Albumin Level 2.2 gm/dl (3.4-5.0); BUN Creatinine Ratio 19.9 (10-20); Calcium 7.1 mg/dl (8.5-10.1); Creatinine Clr Calc Pharmacy 16.8 ml/min; Est GFR (African American) 24.3; Potassium 4.3 mmol/L (3.5-5.1)
[2019-06-16 05:03] LABS: Albumin Globulin Ratio 0.7 (0.9-2); Bilirubin,Total 0.8 mg/dl (0.2-1); Total Protein 5.2 gm/dl (6.4-8.2); Troponin I 19.1 ng/ml (0-0.045)
[2019-06-16 05:59] LABS: iSTAT Art Bld Gas pCO2 Correct 20 mmHg (35-46); iSTAT Art Bld Gas pH Corrected 7.403 (7.35-7.45); iSTAT Arterial Blood Gas HCO3 13 meg/L (19-24); iSTAT Arterial Blood Gas pCO2 20 mmHg (35-46); iSTAT Arterial Blood Gas pH 7.41 (7.35-7.45); iSTAT Carbon Dioxide 13 mEq/l (24-31); iSTAT Site Art Line
[2019-06-16] MEDS ORDERED: Heparin IV Standard *NO* Bolus IV ONE (06:19)
[2019-06-16] MEDS ORDERED: HEPARIN 25000 UNIT/500 ML D5W IV ONE (06:30)
[2019-06-16] MEDS: NORMOSOL-R 1,000 ML IV SCH ×3 (06:31→21:02)
[2019-06-16] MEDS: PIPERACILLIN/TAZOBACTAM 4.5 GM in DEXTROSE 5% 100 ML IV SCH ×2 (06:43→18:23)
[2019-06-16] MEDS: Heparin Adult STANDARD Wt-Based Dextrose 5% 25,000 units/500 mL IV SCH (06:44)
--- NOTE | 2019-06-16 07:06 | Critical Care Progress Note ---
Date of Service June 16, 2019 Assessment & Plan (1) Metabolic encephalopathy: Reason critically ill: Pt is an 84yo female with a PMHx significant for HTN, HLD, CAD who presents with AMS in the setting of septic shock. NEURO -[facility] ICU POSITIVE -Head CT 06/14- no acute process -AMS likely secondary to acute infection, UTI due to possible kidney stone obstruction. -will continue to monitor CARDS/VASCULAR -HYPOTENSION -seemingly resolved 06/16 -continue to hold home amlodipine and metoprolol -central line in place, continue heparin for 24hrs. -Arterial line removed 06/16 out of concern that pt might self-remove. -will continue to monitor for need of pressor support -CAD -continue home aspirin -appreciate CARDS consult RESPIRATORY -Pt on room air currently and saturating well. -Chest xray on admission-no acute cardiopulm process -Chest xray post central line placement- no pneumothorax -will continue to monitor GI -Pt currently NPO -GI Prophylaxis: Pepcid 20mg BID IV RENAL//LYTES -Pt with KEYSHA slowly improving, baseline Cr from 2016 appears to be around 1.0 -Likely pre-renal, continue Normosol @ 125 -UA indicating infection; likely contributory to AMS -continue Daptomycin and Zosyn -CT Abdomen pelvis: left calculi visualized, possible right sided calculi -Renal US: no evidence of hydronephrosis, no calculi visualized -Appreciate urology consult--will watch and wait ID -Sepsis resolving with recovering marrow counts, slowly downtrending lactate -will continue to trend lactate -Likely due to UTI/kidney stone obstruction. -Also on differential, anaplasmosis/erlichiosis--less likely -Lyme neg, anaplasma labs pending, peripheral smear neg -procal in the setting of KEYSHA will not be helpful in this case -Continue Zosyn and Daptomycin -Blood cultures and urine culture pending -Appreciate ID consult HEME -pancytopenia likely due to sepsis -Pt being treated with abx, counts recovering nicely. -will continue to monitor cbc q6h, coags, fibrinogen -will continue to monitor ENDO ICU Protocol for hyperglycemia PIVs intact, Central Line DVT prophylaxis: SCDs Code Status: Full Dispo: ICU for BP support Supervising Physician Co-Signing Physician Notes Dr. Myers was resident physician during care of patient. I separately evaluated patient for maldonado portions of the history and the exam. I was present during the critical portion of medical decision making, and I discussed the case with the resident. I generally agree with the findings and plan. Patient's blood pressure is stabilized, significant improving laboratory values including thrombocytopenia. Troponins continue to climb I have initiated heparin EKG largely unremarkable. Continue broad-spectrum antibiotics awaiting speciation of gram-negative organisms from urinary source. Presumptive pyelonephritis I have personally spent 40 minutes of critical care time in the direct management of this patient. This is a life/limb threatening event. This includes time spent evaluating patient, direct bedside care, chart review, placing orders, interpretation of diagnostic studies, discussion with consultants, patient, and/or family members regarding treatment decisions, as well as other required patient management activities. This time is exclusive of all separately billable procedures, and teaching time and separate from and in addition to any other critical care service time. Subjective Ms. Alas is AAOx2 this AM. Verbal but speech sometimes incomprehensible. However, denies SEVERINO, chest pain, SOB, palps, N/V. States she has some abd pain as well. Review of Systems Review of Systems: All systems reviewed & are unremarkable except as noted in HPI & below Physical Exam Physical Exam: General: Alert, oriented x2. No acute distress HEENT: NC/AT Chest: Nontender to palpation. CV: RRR, Normal s1, s2. Resp: Breath sounds clear bilaterally on front, no increased effort of breathing. Abdomen: Soft, tender in lower abd quadrants. Mild guarding. No organomegaly appreciated. Extremities: No edema. Results & Data Vital Signs (Past 12 Hours) Vital Signs Temp Pulse BP Pulse Ox 06/16/19 04:40 37.2 C 82 94 06/16/19 04:30 83 95 06/16/19 04:20 81 96 06/16/19 04:10 80 96 06/16/19 04:01 80 96 06/16/19 04:00 80 115/59 L 96 06/16/19 03:50 85 96 06/16/19 03:40 79 95 06/16/19 03:30 78 95 06/16/19 03:20 81 96 06/16/19 03:10 75 97 06/16/19 03:01 81 97 06/16/19 03:00 83 109/54 L 96 06/16/19 02:50 82 96 06/16/19 02:40 81 96 06/16/19 02:30 80 97 06/16/19 02:20 80 96 06/16/19 02:10 79 97 06/16/19 02:01 81 96 06/16/19 02:00 79 117/46 L 96 06/16/19 01:50 81 95 06/16/19 01:40 79 95 06/16/19 01:30 80 97 06/16/19 01:20 79 96 06/16/19 01:10 81 97 06/16/19 01:01 80 97 06/16/19 01:00 78 111/55 L 95 06/16/19 00:50 80 97 06/16/19 00:40 78 97 06/16/19 00:30 78 95 06/16/19 00:20 83 96 06/16/19 00:10 79 96 06/16/19 00:01 77 96 06/16/19 00:00 36.9 C 78 108/65 96 06/15/19 23:50 78 96 06/15/19 23:40 82 95 06/15/19 23:30 81 95 06/15/19 23:20 80 95 06/15/19 23:10 82 95 06/15/19 23:01 81 94 06/15/19 23:00 82 115/49 L 94 06/15/19 22:50 84 97 06/15/19 22:40 86 94 06/15/19 22:30 77 95 06/15/19 22:20 81 95 06/15/19 22:10 82 95 06/15/19 22:01 88 96 06/15/19 22:00 85 116/51 L 96 06/15/19 21:50 86 96 06/15/19 21:40 89 96 06/15/19 21:30 91 H 96 06/15/19 21:20 101 H 91 06/15/19 21:10 84 95 06/15/19 21:01 86 96 06/15/19 21:00 83 137/60 96 06/15/19 20:50 86 96 06/15/19 20:40 88 96 06/15/19 20:30 89 96 06/15/19 20:20 88 96 06/15/19 20:10 89 95 06/15/19 20:01 87 95 06/15/19 20:00 37.3 C 87 136/60 95 06/15/19 19:50 89 97 06/15/19 19:40 85 94 06/15/19 19:30 84 94 06/15/19 19:20 85 95 06/15/19 19:10 86 94 Laboratory Results Laboratory Results - last 24 hr 06/15/19 06/15/19 06/15/19 06:17 10:33 10:33 WBC RBC Hgb Hct MCV MCH MCHC RDW Std Deviation RDW Coeff of Jose Plt Count MPV Immature Gran % (Auto) Neut % (Auto) Lymph % (Auto) [place] % (Auto) Eos % (Auto) Baso % (Auto) Immature Gran # (Auto) Neut # (Auto) Lymph # (Auto) [place] # (Auto) Eos # (Auto) Baso # (Auto) Platelet Estimate Echinocytes Peripher Smr Path Cons PT INR APTT PTT Ratio Fibrinogen Sample Site POC pH POC pCO2 POC pO2 POC HCO3 POC Total CO2 POC Base Excess ABG pH ABG pH (Temp Correct) ABG pCO2 ABG pCO2 (Temp Corrct ABG pO2 POC ABG pO2 at Pt Temp ABG HCO3 POC ABG O2 Sat ABG O2 Saturation ABG Base Excess Oracio Test VBG pH VBG pCO2 VBG pO2 VBG HCO3 VBG O2 Saturation VBG Base Excess Barometric Pressure Oxygen Given O2 Delivery Device Sodium Potassium Chloride Carbon Dioxide Anion Gap BUN Creatinine Est Cr Clr Drug Dosing Est GFR ( Amer) Est GFR (Non-Af Amer) BUN/Creatinine Ratio Glucose POC Glucose Lactate 5.6 H* Calcium Ionized Calcium Total Bilirubin AST ALT Alkaline Phosphatase Troponin I 5.650 H* Total Protein Albumin Globulin Albumin/Globulin Ratio Nasal Screen MRSA (PCR) Blood Type Antibody Screen 06/15/19 06/15/19 06/15/19 11:19 13:01 14:51 WBC 5.46 RBC 2.69 L Hgb 8.7 L Hct 25.9 L MCV 96.3 MCH 32.3 MCHC 33.6 RDW Std Deviation 50.6 H RDW Coeff of Jose 14.4 Plt Count 86 L MPV 10.1 Immature Gran % (Auto) 7.1 Neut % (Auto) 82.9 Lymph % (Auto) 5.7 [place] % (Auto) 3.8 Eos % (Auto) 0.5 Baso % (Auto) 0.0 Immature Gran # (Auto) 0.39 H Neut # (Auto) 4.52 Lymph # (Auto) 0.31 L [place] # (Auto) 0.21 Eos # (Auto) 0.03 Baso # (Auto) 0.00 Platelet Estimate Decreased L Echinocytes 2+ Peripher Smr Path Cons PT INR APTT PTT Ratio Fibrinogen Sample Site POC pH POC pCO2 POC pO2 POC HCO3 POC Total CO2 POC Base Excess ABG pH ABG pH (Temp Correct) ABG pCO2 ABG pCO2 (Temp Corrct ABG pO2 POC ABG pO2 at Pt Temp ABG HCO3 POC ABG O2 Sat ABG O2 Saturation ABG Base Excess Oracio Test VBG pH VBG pCO2 VBG pO2 VBG HCO3 VBG O2 Saturation VBG Base Excess Barometric Pressure Oxygen Given O2 Delivery Device Sodium Potassium Chloride Carbon Dioxide Anion Gap BUN Creatinine Est Cr Clr Drug Dosing Est GFR ( Amer) Est GFR (Non-Af Amer) BUN/Creatinine Ratio Glucose POC Glucose 75 Lactate Calcium Ionized Calcium Total Bilirubin AST ALT Alkaline Phosphatase Troponin I Total Protein Albumin Globulin Albumin/Globulin Ratio Nasal Screen MRSA (PCR) Negative Blood Type Antibody Screen 06/15/19 06/15/19 06/15/19 14:51 14:51 15:08 WBC RBC Hgb Hct MCV MCH MCHC RDW Std Deviation RDW Coeff of Jose Plt Count MPV Immature Gran % (Auto) Neut % (Auto) Lymph % (Auto) [place] % (Auto) Eos % (Auto) Baso % (Auto) Immature Gran # (Auto) Neut # (Auto) Lymph # (Auto) [place] # (Auto) Eos # (Auto) Baso # (Auto) Platelet Estimate Echinocytes Peripher Smr Path Cons PT 13.2 H INR 1.3 H APTT PTT Ratio Fibrinogen Sample Site POC pH POC pCO2 POC pO2 POC HCO3 POC Total CO2 POC Base Excess ABG pH ABG pH (Temp Correct) ABG pCO2 ABG pCO2 (Temp Corrct ABG pO2 POC ABG pO2 at Pt Temp ABG HCO3 POC ABG O2 Sat ABG O2 Saturation ABG Base Excess Oracio Test VBG pH VBG pCO2 VBG pO2 VBG HCO3 VBG O2 Saturation VBG Base Excess Barometric Pressure Oxygen Given O2 Delivery Device Sodium 145 D Potassium 3.9 Chloride 120 H Carbon Dioxide 12 L Anion Gap 13.0 H BUN 39 H Creatinine 2.48 H D Est Cr Clr Drug Dosing 14.6 Est GFR ( Amer) 20.0 Est GFR (Non-Af Amer) 17.2 BUN/Creatinine Ratio 15.9 Glucose 89 POC Glucose Lactate 3.9 H* Calcium 7.6 L D Ionized Calcium Total Bilirubin 1.0 AST 55 H ALT 28 Alkaline Phosphatase 65 Troponin I Total Protein 5.3 L D Albumin 2.3 L Globulin 3.0 Albumin/Globulin Ratio 0.8 L Nasal Screen MRSA (PCR) Blood Type Antibody Screen 06/15/19 06/15/19 06/15/19 15:08 15:09 15:12 WBC RBC Hgb Hct MCV MCH MCHC RDW Std Deviation RDW Coeff of Jose Plt Count MPV Immature Gran % (Auto) Neut % (Auto) Lymph % (Auto) [place] % (Auto) Eos % (Auto) Baso % (Auto) Immature Gran # (Auto) Neut # (Auto) Lymph # (Auto) [place] # (Auto) Eos # (Auto) Baso # (Auto) Platelet Estimate Echinocytes Peripher Smr Path Cons PT INR APTT PTT Ratio Fibrinogen Sample Site POC pH POC pCO2 POC pO2 POC HCO3 POC Total CO2 POC Base Excess ABG pH 7.42 ABG pH (Temp Correct) ABG pCO2 20 L ABG pCO2 (Temp Corrct ABG pO2 70 L POC ABG pO2 at Pt Temp ABG HCO3 13 L POC ABG O2 Sat ABG O2 Saturation 92.2 ABG Base Excess -10.1 L Oracio Test ART LINE VBG pH 7.35 L VBG pCO2 27 L VBG pO2 32 VBG HCO3 15 VBG O2 Saturation 60.0 VBG Base Excess -9.9 Barometric Pressure 731.3 730.6 Oxygen Given ROOM AIR O2 Delivery Device Sodium Potassium Chloride Carbon Dioxide Anion Gap BUN Creatinine Est Cr Clr Drug Dosing Est GFR ( Amer) Est GFR (Non-Af Amer) BUN/Creatinine Ratio Glucose POC Glucose Lactate Calcium Ionized Calcium Total Bilirubin AST ALT Alkaline Phosphatase Troponin I 9.330 H* Total Protein Albumin Globulin Albumin/Globulin Ratio Nasal Screen MRSA (PCR) Blood Type Antibody Screen 06/15/19 06/15/19 06/15/19 19:24 19:37 19:37 WBC RBC Hgb Hct MCV MCH MCHC RDW Std Deviation RDW Coeff of Jose Plt Count MPV Immature Gran % (Auto) Neut % (Auto) Lymph % (Auto) [place] % (Auto) Eos % (Auto) Baso % (Auto) Immature Gran # (Auto) Neut # (Auto) Lymph # (Auto) [place] # (Auto) Eos # (Auto) Baso # (Auto) Platelet Estimate Echinocytes Peripher Smr Path Cons PT INR APTT PTT Ratio Fibrinogen 432 H Sample Site Art Line POC pH 7.35 POC pCO2 19 L POC pO2 75 L POC HCO3 11 L POC Total CO2 11 L POC Base Excess -15.0 L ABG pH ABG pH (Temp Correct) ABG pCO2 ABG pCO2 (Temp Corrct ABG pO2 POC ABG pO2 at Pt Temp ABG HCO3 POC ABG O2 Sat 95.0 ABG O2 Saturation ABG Base Excess Oracio Test NA VBG pH VBG pCO2 VBG pO2 VBG HCO3 VBG O2 Saturation VBG Base Excess Barometric Pressure Oxygen Given O2 Delivery Device Room Air Sodium Potassium Chloride Carbon Dioxide Anion Gap BUN Creatinine Est Cr Clr Drug Dosing Est GFR ( Amer) Est GFR (Non-Af Amer) BUN/Creatinine Ratio Glucose POC Glucose Lactate Calcium Ionized Calcium 0.95 L Total Bilirubin AST ALT Alkaline Phosphatase Troponin I Total Protein Albumin Globulin Albumin/Globulin Ratio Nasal Screen MRSA (PCR) Blood Type Antibody Screen 06/15/19 06/15/19 06/15/19 19:38 19:38 19:38 WBC RBC Hgb Hct MCV MCH MCHC RDW Std Deviation RDW Coeff of Jose Plt Count MPV Immature Gran % (Auto) Neut % (Auto) Lymph % (Auto) [place] % (Auto) Eos % (Auto) Baso % (Auto) Immature Gran # (Auto) Neut # (Auto) Lymph # (Auto) [place] # (Auto) Eos # (Auto) Baso # (Auto) Platelet Estimate Echinocytes Peripher Smr Path Cons PT INR APTT PTT Ratio Fibrinogen Sample Site POC pH POC pCO2 POC pO2 POC HCO3 POC Total CO2 POC Base Excess ABG pH ABG pH (Temp Correct) ABG pCO2 ABG pCO2 (Temp Corrct ABG pO2 POC ABG pO2 at Pt Temp ABG HCO3 POC ABG O2 Sat ABG O2 Saturation ABG Base Excess Oracio Test VBG pH VBG pCO2 VBG pO2 VBG HCO3 VBG O2 Saturation VBG Base Excess Barometric Pressure Oxygen Given O2 Delivery Device Sodium 142 Potassium 4.0 Chloride 117 H Carbon Dioxide 12 L Anion Gap 13.0 H BUN 41 H Creatinine 2.39 H Est Cr Clr Drug Dosing 15.2 Est GFR ( Amer) 20.9 Est GFR (Non-Af Amer) 18.0 BUN/Creatinine Ratio 17.0 Glucose 84 POC Glucose Lactate 4.0 H* Calcium 7.4 L Ionized Calcium Total Bilirubin AST ALT Alkaline Phosphatase Troponin I Total Protein Albumin Globulin Albumin/Globulin Ratio Nasal Screen MRSA (PCR) Blood Type O Positive Antibody Screen NEGATIVE 06/15/19 06/16/19 06/16/19 23:30 00:19 01:26 WBC RBC Hgb Hct MCV MCH MCHC RDW Std Deviation RDW Coeff of Jose Plt Count MPV Immature Gran % (Auto) Neut % (Auto) Lymph % (Auto) [place] % (Auto) Eos % (Auto) Baso % (Auto) Immature Gran # (Auto) Neut # (Auto) Lymph # (Auto) [place] # (Auto) Eos # (Auto) Baso # (Auto) Platelet Estimate Echinocytes Peripher Smr Path Cons PT INR APTT PTT Ratio Fibrinogen Sample Site Art Line POC pH 7.32 L POC pCO2 22 L POC pO2 83 POC HCO3 11 L POC Total CO2 12 L POC Base Excess -15.0 L ABG pH ABG pH (Temp Correct) 7.315 L ABG pCO2 ABG pCO2 (Temp Corrct 22 L ABG pO2 POC ABG pO2 at Pt Temp 85 ABG HCO3 POC ABG O2 Sat 96.0 H ABG O2 Saturation ABG Base Excess Oracio Test NA VBG pH VBG pCO2 VBG pO2 VBG HCO3 VBG O2 Saturation VBG Base Excess Barometric Pressure Oxygen Given O2 Delivery Device Room Air Sodium 142 Potassium 4.1 Chloride 116 H Carbon Dioxide 14 L Anion Gap 12.0 H BUN 42 H Creatinine 2.15 H Est Cr Clr Drug Dosing 16.9 Est GFR ( Amer) 23.7 Est GFR (Non-Af Amer) 20.5 BUN/Creatinine Ratio 19.5 Glucose 87 POC Glucose 91 Lactate Calcium 7.2 L Ionized Calcium Total Bilirubin AST ALT Alkaline Phosphatase Troponin I Total Protein Albumin Globulin Albumin/Globulin Ratio Nasal Screen MRSA (PCR) Blood Type Antibody Screen 06/16/19 06/16/19 06/16/19 01:26 01:26 04:14 WBC RBC Hgb Hct MCV MCH MCHC RDW Std Deviation RDW Coeff of Joes Plt Count MPV Immature Gran % (Auto) Neut % (Auto) Lymph % (Auto) [place] % (Auto) Eos % (Auto) Baso % (Auto) Immature Gran # (Auto) Neut # (Auto) Lymph # (Auto) [place] # (Auto) Eos # (Auto) Baso # (Auto) Platelet Estimate Echinocytes Peripher Smr Path Cons PT 13.6 H INR 1.4 H APTT 35.3 H PTT Ratio 1.3 Fibrinogen Sample Site POC pH POC pCO2 POC pO2 POC HCO3 POC Total CO2 POC Base Excess ABG pH ABG pH (Temp Correct) ABG pCO2 ABG pCO2 (Temp Corrct ABG pO2 POC ABG pO2 at Pt Temp ABG HCO3 POC ABG O2 Sat ABG O2 Saturation ABG Base Excess Oracio Test VBG pH VBG pCO2 VBG pO2 VBG HCO3 VBG O2 Saturation VBG Base Excess Barometric Pressure Oxygen Given O2 Delivery Device Sodium Potassium Chloride Carbon Dioxide Anion Gap BUN Creatinine Est Cr Clr Drug Dosing Est GFR ( Amer) Est GFR (Non-Af Amer) BUN/Creatinine Ratio Glucose POC Glucose Lactate 3.7 H* Calcium Ionized Calcium 0.94 L Total Bilirubin AST ALT Alkaline Phosphatase Troponin I Total Protein Albumin Globulin Albumin/Globulin Ratio Nasal Screen MRSA (PCR) Blood Type Antibody Screen 06/16/19 06/16/19 06/16/19 04:14 04:14 05:45 WBC 10.07 RBC 2.64 L Hgb 8.5 L Hct 25.3 L MCV 95.8 MCH 32.2 MCHC 33.6 RDW Std Deviation 51.7 H RDW Coeff of Jose 14.8 H Plt Count 99 L MPV 10.5 H Immature Gran % (Auto) Neut % (Auto) Lymph % (Auto) [place] % (Auto) Eos % (Auto) Baso % (Auto) Immature Gran # (Auto) Neut # (Auto) Lymph # (Auto) [place] # (Auto) Eos # (Auto) Baso # (Auto) Platelet Estimate Echinocytes Peripher Smr Path Cons PT INR APTT PTT Ratio Fibrinogen Sample Site Art Line POC pH 7.41 POC pCO2 20 L POC pO2 85 POC HCO3 13 L POC Total CO2 13 L POC Base Excess -12.0 L ABG pH ABG pH (Temp Correct) 7.403 ABG pCO2 ABG pCO2 (Temp Corrct 20 L ABG pO2 POC ABG pO2 at Pt Temp 85 ABG HCO3 POC ABG O2 Sat 97.0 H ABG O2 Saturation ABG Base Excess Oracio Test NA VBG pH VBG pCO2 VBG pO2 VBG HCO3 VBG O2 Saturation VBG Base Excess Barometric Pressure Oxygen Given O2 Delivery Device Room Air Sodium 143 Potassium 4.3 Chloride 116 H Carbon Dioxide 15 L Anion Gap 12.0 H BUN 42 H Creatinine 2.11 H Est Cr Clr Drug Dosing 16.8 Est GFR ( Amer) 24.3 Est GFR (Non-Af Amer) 21.0 BUN/Creatinine Ratio 19.9 Glucose 81 POC Glucose Lactate Calcium 7.1 L Ionized Calcium Total Bilirubin 0.8 AST 59 H ALT 28 Alkaline Phosphatase 48 Troponin I 19.100 H* Total Protein 5.2 L Albumin 2.2 L Globulin 3.0 Albumin/Globulin Ratio 0.7 L Nasal Screen MRSA (PCR) Blood Type Antibody Screen 06/16/19 06/16/19 06/16/19 08:06 08:06 08:06 WBC RBC Hgb Hct MCV MCH MCHC RDW Std Deviation RDW Coeff of Jose Plt Count MPV Immature Gran % (Auto) Neut % (Auto) Lymph % (Auto) [place] % (Auto) Eos % (Auto) Baso % (Auto) Immature Gran # (Auto) Neut # (Auto) Lymph # (Auto) [place] # (Auto) Eos # (Auto) Baso # (Auto) Platelet Estimate Echinocytes Peripher Smr Path Cons PT INR APTT PTT Ratio Fibrinogen Sample Site POC pH POC pCO2 POC pO2 POC HCO3 POC Total CO2 POC Base Excess ABG pH ABG pH (Temp Correct) ABG pCO2 ABG pCO2 (Temp Corrct ABG pO2 POC ABG pO2 at Pt Temp ABG HCO3 POC ABG O2 Sat ABG O2 Saturation ABG Base Excess Oracio Test VBG pH VBG pCO2 VBG pO2 VBG HCO3 VBG O2 Saturation VBG Base Excess Barometric Pressure Oxygen Given O2 Delivery Device Sodium Potassium Chloride Carbon Dioxide Anion Gap BUN Creatinine Est Cr Clr Drug Dosing Est GFR ( Amer) Est GFR (Non-Af Amer) BUN/Creatinine Ratio Glucose POC Glucose Lactate 3.1 H* Calcium Ionized Calcium Pending Total Bilirubin AST ALT Alkaline Phosphatase Troponin I 17.100 H* Total Protein Albumin Globulin Albumin/Globulin Ratio Nasal Screen MRSA (PCR) Blood Type Antibody Screen Medications Administered Home Medications amlodipine 5 mg PO DAILY 06/15/19 [History Confirmed 06/15/19] aspirin 81 mg PO DAILY 06/15/19 [History Confirmed 06/15/19] calcium carbonate [Calcium 600] 600 mg PO DAILY 06/15/19 [History Confirmed 06/15/19] celecoxib 100 mg PO BID 06/15/19 [History Confirmed 06/15/19] metoprolol succinate 100 mg PO DAILY 06/15/19 [History Confirmed 06/15/19] nitroglycerin [Nitrostat] 0.4 mg SUBLINGUAL USEASDIRECTD PRN 06/15/19 [History Confirmed 06/15/19] oxybutynin chloride 2.5 mg PO BID 06/15/19 [History Confirmed 06/15/19] potassium chloride 20 meq PO DAILY 06/15/19 [History Confirmed 06/15/19] triamterene-hydrochlorothiazid 1 tab PO DAILY 06/15/19 [History Confirmed 06/15/19] Active Medications Acetaminophen (Tylenol) 650 mg PO Q4H PRN PRN Reason: Pain or Fever Stop: 07/15/19 10:18 Aspirin (Ecotrin Ectab) 81 mg PO DAILY [facility] Stop: 07/16/19 08:59 Last Admin: 06/16/19 08:22 Dose: 81 mg Documented by: Heparin Sodium (Beef Lung) (Heparin Sod 10 Unit/Ml Flush) 5 ml FLUSH PRN PRN PRN Reason: Flush Stop: 07/16/19 00:41 Daptomycin 300 mg/ Syringe 6 mls @ 4 mls/min IV Q2D@1300 MERVAT; Protocol Stop: 06/29/19 12:59 Piperacillin Sod/Tazobactam (Sod 4.5 gm/ Dextrose) 120 mls @ 30 mls/hr IV Q12H [facility]; Protocol Stop: 06/29/19 18:59 Last Admin: 06/16/19 06:43 Dose: 30 mls/hr Documented by: Parenteral Electrolytes (Normosol-R) 1,000 mls @ 125 mls/hr IV .Q8H [facility] Stop: 07/15/19 15:29 Last Admin: 06/16/19 06:31 Dose: 125 mls/hr Documented by: Famotidine 20 mg/ Syringe 5 mls @ 2.5 mls/min IV BID [facility] Stop: 07/15/19 20:59 Last Admin: 07/20/19 08:34 Dose: 2.5 mls/min Documented by: Heparin Sodium/Dextrose (Heparin Sodium/Dextrose) 25,000 units in 500 mls @ 19 mls/hr IV .Q24H [facility]; Protocol Stop: 07/16/19 06:44 Last Admin: 06/16/19 06:44 Dose: 950 units/hr, 19 mls/hr Documented by: Metoprolol Tartrate (Lopressor) 50 mg PO BID [facility] Stop: 07/15/19 20:59 Last Admin: 06/16/19 08:22 Dose: 50 mg Documented by: Miscellaneous Information (Consult) 1 ea N/A UD PRN PRN Reason: Consult Stop: 07/15/19 10:18 Multivitamins/Minerals (Caltrate Plus) 1 tab PO DAILY [facility] Stop: 07/16/19 08:59 Last Admin: 06/16/19 08:22 Dose: 1 tab Documented by: Oxybutynin Chloride (Ditropan) 2.5 mg PO BID [facility] Stop: 07/15/19 20:59 Last Admin: 06/16/19 08:22 Dose: 2.5 mg Documented by: Thiamine HCl (Vitamin B-1) 100 mg PO QAM [facility] Stop: 07/15/19 14:59 Last Admin: 06/16/19 08:22 Dose: 100 mg Documented by: PG Care Time/CCT Critical Care Time: Yes Total Critical Care Time: 40
[2019-06-16] MEDS: METOPROLOL TARTRATE 50 MG TAB PO SCH ×2 (08:22→20:08)
[2019-06-16] MEDS: ASPIRIN 81 MG ECTAB PO SCH (08:22)
[2019-06-16] MEDS: THIAMINE HCL 100 MG TAB PO SCH (08:22)
[2019-06-16] MEDS: OXYBUTYNIN CHLORIDE 5 MG TAB PO SCH ×2 (08:22→20:09)
[2019-06-16] MEDS: CALCIUM 600MG + VIT D 400 IU TAB PO SCH (08:22)
[2019-06-16] MEDS: FAMOTIDINE 20 MG in SYRINGE 3 ML IV SCH ×2 (08:34→20:08)
[2019-06-16 09:51] LABS: Hematocrit (blood only) 25.6 % (37-47); Hemoglobin 8.7 g/dL (12.0-16.0); Mean Corpuscular Volume 94.1 fL (80-100); Mean Platelet Volume 11.1 fL (7.4-10.4); Platelet Count 111 K/uL (130-400); RDW Coefficient of Variation 15.1 % (11.5-14.5); RDW Standard Deviation 51.6 fL (36.4-46.3); Red Blood Count 2.72 M/uL (4.2-5.4)
[2019-06-16 09:53] LABS: ALC (manual) 1.73 K/uL (1.2-3.4); Echinocytes 1+; Lymphocytes # (manual) 1.73 K/uL (1.2-3.4); Lymphocytes % (manual) 15.9 %; Metamyelocytes # (manual) 0.77 K/uL (0-0); Metamyelocytes % (manual) 7.1 %; Platelet Estimate Decreased (Normal)
--- NOTE | 2019-06-16 10:11 | Cardiology Progress Note ---
Date of Service June 16, 2019 Assessment & Plan (1) Elevated troponin I level: (2) CAD (coronary artery disease): (3) UTI (urinary tract infection): (4) Neutropenia: (5) Thrombocytopenia: Complex 84-year-old female presents with altered mental status and severe sepsis. Elevated troponins likely secondary to type II event, demand ischemia, in the setting of severe sepsis and hypotension. Platelet count trending upward. Patient currently without anginal symptoms. No dysrhythmias on telemetry. IV heparin initiated by delivery director service. Continue to monitor CBC closely for worsening thrombocytopenia. Currently no signs/symptoms of GI/ blood loss. Continue antibiotics per infectious disease service. Repeat ECG in a.m. Subjective Patient seen and examined at the bedside. More alert today. Denies chest pain or shortness of breath. Troponins have peaked and are trending downward. No ischemic ECG changes per repeat ECG today. No dysrhythmias on telemetry. Cultures pending at this time. Antibiotics infusing. Arterial line discontinued. Blood pressure has been stable. Review of Systems Review of Systems: All systems reviewed & are unremarkable except as noted in HPI & below Physical Exam Physical Exam: General: NAD, AAO x3, well nourished. HEENT: Normocephalic. Atraumatic. Conjunctiva pink, no scleral icterus. Neck: No carotid bruits, the carotid upstrokes are brisk. No JVD. No HJR Heart: Regular normal S-1 and S-2 no S-3 or S-4 gallop. No murmurs or rub appreciated. PMI is not displaced. No RV heave. Lungs: Clear bilateral without rales , rhonchi, or wheeze. Abdomen: Normal bowel sounds. Soft. Nontender. No masses or organomegaly. No abdominal bruits. Extremities: No clubbing, cyanosis, or edema. Pulses: radial=2/4, Dorsalis pedis =2/4, posterior tibial=2/4. Neuro: Cranial nerves grossly intact. No focal motor deficit. Results & Data Vital Signs (Past 12 Hours) Vital Signs Temp Pulse Resp BP Pulse Ox 06/16/19 09:00 77 16 94 06/16/19 08:00 78 12 159/58 H 95 06/16/19 07:00 36.7 C 72 12 137/82 95 06/16/19 04:40 37.2 C 82 94 06/16/19 04:30 83 95 06/16/19 04:20 81 96 06/16/19 04:10 80 96 06/16/19 04:01 80 96 06/16/19 04:00 80 115/59 L 96 06/16/19 03:50 85 96 06/16/19 03:40 79 95 06/16/19 03:30 78 95 06/16/19 03:20 81 96 06/16/19 03:10 75 97 06/16/19 03:01 81 97 06/16/19 03:00 83 109/54 L 96 06/16/19 02:50 82 96 06/16/19 02:40 81 96 06/16/19 02:30 80 97 06/16/19 02:20 80 96 06/16/19 02:10 79 97 06/16/19 02:01 81 96 06/16/19 02:00 79 117/46 L 96 06/16/19 01:50 81 95 06/16/19 01:40 79 95 06/16/19 01:30 80 97 06/16/19 01:20 79 96 06/16/19 01:10 81 97 06/16/19 01:01 80 97 06/16/19 01:00 78 111/55 L 95 06/16/19 00:50 80 97 06/16/19 00:40 78 97 06/16/19 00:30 78 95 06/16/19 00:20 83 96 06/16/19 00:10 79 96 06/16/19 00:01 77 96 06/16/19 00:00 36.9 C 78 108/65 96 06/15/19 23:50 78 96 06/15/19 23:40 82 95 06/15/19 23:30 81 95 06/15/19 23:20 80 95 06/15/19 23:10 82 95 06/15/19 23:01 81 94 06/15/19 23:00 82 115/49 L 94 06/15/19 22:50 84 97 06/15/19 22:40 86 94 06/15/19 22:30 77 95 06/15/19 22:20 81 95 06/15/19 22:10 82 95 (1) CAD (coronary artery disease) Coronary Disease-Associated Artery/Lesion type: [place] artery [place] vs. transplanted heart: [place] heart Associated angina: without angina Qualified Code(s): I25.10 - Atherosclerotic heart disease of [place] coronary artery without angina pectoris (2) UTI (urinary tract infection) Hematuria presence: with hematuria Urinary tract infection type: site unspecified Qualified Code(s): N39.0 - Urinary tract infection, site not specified; R31.9 - Hematuria, unspecified (3) Neutropenia Neutropenia type: unspecified Qualified Code(s): D70.9 - Neutropenia, unspecified
--- NOTE | 2019-06-16 12:12 | Urology Consultation ---
Date of Consultation June 16, 2019 Assessment & Plan (1) Neutropenia: See below. Presumed pyelo (2) UTI (urinary tract infection): Sepsis with neutropenia with supposed pyelo source. Waiting on cultures. LINDA negative for obstruction. May need repeat CT if not improved though images limited due to hip. On broad spectrum abx and critical monitoring. Continue supportive care. History of Present Illness Attending Physician: Colin Lee MD History of Present Illness Patient admitted with severe sepsis with neutropenia. Patient found to have lethargy and ill feelings. Was admitted. Had to be transferred to ICU for increasing lactic acidosis and hypotention. Monitoring with critical care. CT showed mild hydro. No obv stone but obscurred due to hip replacement KUB and LINDA shows no obstructing stone. Multiple phelboliths but no confirmed stones. [place] less significant on LINDA. Patient continues to be monitored. No severe changes overnight. Intermittent confusion and lethargy but family bedside says improving. No major or severe episodes. Dodson draining well. Allergies Allergy/AdvReac Type Severity Reaction Status Date / Time banana AdvReac Unknown SHAKES;FEELS Verified 06/15/19 07:45 LIKE SHE IS IN ANOTHER WORLD Home Medications Home Medications Medication Instructions Recorded Confirmed Type amlodipine 5 mg PO DAILY 06/15/19 06/15/19 History aspirin 81 mg PO DAILY 06/15/19 06/15/19 History calcium carbonate [Calcium 600] 600 mg PO DAILY 06/15/19 06/15/19 History celecoxib 100 mg PO BID 06/15/19 06/15/19 History metoprolol succinate 100 mg PO DAILY 06/15/19 06/15/19 History nitroglycerin [Nitrostat] 0.4 mg SUBLINGUAL USEASDIRECTD PRN 06/15/19 06/15/19 History oxybutynin chloride 2.5 mg PO BID 06/15/19 06/15/19 History potassium chloride 20 meq PO DAILY 06/15/19 06/15/19 History triamterene-hydrochlorothiazid 1 tab PO DAILY 06/15/19 06/15/19 History Patient History Medical History CKD (chronic kidney disease), stage III (Chronic) Non-STEMI (non-ST elevated myocardial infarction) (Chronic) Hypertension (Chronic) CAD (coronary artery disease) (Chronic) Dyslipidemia (Chronic) Surgical History History of cataract surgery (Chronic) History of total right hip arthroplasty (Chronic) History of carpal tunnel surgery of right wrist (Chronic) Family History Mother Heart disease Liver cancer Father Heart disease Social History Preferred Language: Romanian Communication Ability: drowsy Visual Impairment: No Limitations Hearing Ability: Normal Milk Pasteurizer Required: No Beliefs That Will Affect Care: None marital status details: Current Living Situation: Spouse Other Information That Helps Us Care for You: No Feels Safe at Home: No Is there a partner from a previous relationship who is making you feel unsafe now?: No Any Concerns about Your Family Situation: No Would You Like to Speak to Someone About Your Situation: No Safety Concerns: Feels Safe At This Time Smoking Status: Never smoker Hx Alcohol Use: No Hx Substance Use: No Review of Systems Review of Systems: All systems reviewed & are unremarkable except as noted in HPI & below ROS per HPI, all other systems reviewed and negative Physical Exam Constitutional: WD/WN, vitals as above Eyes: PERRL, conjunctivae normal, anicteric sclerae ENMT: Ears: no external ear abnormality Nose: no external nose abnormality Mouth: + dry oral mucous membranes Respiratory: normal respiratory effort; no respiratory distress Cardiovascular: Rate/Rhythm: not tachycardic Gastrointestinal (Abdomen): Inspection/Auscultation: normal bowel sounds; abdomen not distended Percussion/Palpation: + abdomen tender (Generalized) and abdomen soft; no hepatosplenomegaly Musculoskeletal: no cyanosis or clubbing, extremities motor strength 5/5 Skin: no rashes, warm and dry Neurologic: PERRL, EOMI, accommodation nl, no face palsy, no dysarthria Psychiatric: Orientation: alert (Somewhat lethargic however easily arousable to verbal stimuli); not guarded Eye Contact: + fair eye contact Affect: + flat affect Genitourinary: Dodson in place. NO CVA tenderness Results & Data Vital Signs (Past 12 Hours) Vital Signs Temp Pulse Resp BP Pulse Ox 06/16/19 11:00 77 16 130/55 L 94 06/16/19 10:00 69 16 117/57 L 94 06/16/19 09:00 77 16 94 06/16/19 08:00 78 12 159/58 H 95 06/16/19 07:00 36.7 C 72 12 137/82 95 06/16/19 04:40 37.2 C 82 94 06/16/19 04:30 83 95 06/16/19 04:20 81 96 06/16/19 04:10 80 96 06/16/19 04:01 80 96 06/16/19 04:00 80 115/59 L 96 06/16/19 03:50 85 96 06/16/19 03:40 79 95 06/16/19 03:30 78 95 06/16/19 03:20 81 96 06/16/19 03:10 75 97 06/16/19 03:01 81 97 06/16/19 03:00 83 109/54 L 96 06/16/19 02:50 82 96 06/16/19 02:40 81 96 06/16/19 02:30 80 97 06/16/19 02:20 80 96 06/16/19 02:10 79 97 06/16/19 02:01 81 96 06/16/19 02:00 79 117/46 L 96 06/16/19 01:50 81 95 06/16/19 01:40 79 95 06/16/19 01:30 80 97 06/16/19 01:20 79 96 06/16/19 01:10 81 97 06/16/19 01:01 80 97 06/16/19 01:00 78 111/55 L 95 06/16/19 00:50 80 97 06/16/19 00:40 78 97 06/16/19 00:30 78 95 06/16/19 00:20 83 96 06/16/19 00:10 79 96 (1) UTI (urinary tract infection) Hematuria presence: with hematuria Urinary tract infection type: site unspecified Qualified Code(s): N39.0 - Urinary tract infection, site not specified; R31.9 - Hematuria, unspecified (2) Neutropenia Neutropenia type: unspecified Qualified Code(s): D70.9 - Neutropenia, unspecified
[2019-06-16 12:24] LABS: Partial Thromboplastin Ratio 3.3
[2019-06-16 12:51] LABS: Partial Thromboplastin Time 89.8 Seconds (21.0-31.0)
[2019-06-16 16:35] LABS: Fibrinogen 549 mg/dl (184-400); INR 1.3 (0.9-1.1); Prothrombin Time 13.1 Seconds (9.0-12.0)
[2019-06-16 17:05] LABS: Hematocrit (blood only) 26.7 % (37-47); Hemoglobin 8.9 g/dL (12.0-16.0); Mean Corpuscular Volume 94.3 fL (80-100); Mean Platelet Volume 10.9 fL (7.4-10.4); Platelet Count 103 K/uL (130-400); RDW Coefficient of Variation 15.1 % (11.5-14.5); Red Blood Count 2.83 M/uL (4.2-5.4); White Blood Count 15.97 K/uL (4.8-10.8)
[2019-06-16 17:11] LABS: Mean Corpuscular Hgb Conc 33.3 g/dL (32-36)
[2019-06-16 17:27] LABS: Basophils # (auto) 0.01 K/uL (0-0.2); Basophils % (auto) 0.1 %; Dohle Bodies 2+; Echinocytes 1+; Eosinophils # (auto) 0.03 K/uL (0-0.5); Eosinophils % (auto) 0.2 %; Immature Granulocytes % (auto) 3.1 %; Lymphocytes # (auto) 1.21 K/uL (1.2-3.4); Lymphocytes % (auto) 7.6 %; Monocytes # (auto) 0.46 K/uL (0.11-0.59); Monocytes % (auto) 2.9 %; Neutrophils # (auto) 13.76 K/uL (1.4-6.5); Neutrophils % (auto) 86.1 %; Toxic Granulation 1+; Toxic Vacuolation 2+
--- NOTE | 2019-06-16 19:07 | Hospitalist Progress Note ---
Date of Service June 16, 2019 Assessment & Plan (1) Severe sepsis: (2) UTI (urinary tract infection): Present on admission with altered mental status Met sepsis criteria on admission with neutropenic with WBC 0.85, tachycardic, elevated lactic acid, hypotension CT abd/pelvis showed mild right hydroureteronephrosis. Urine cx grew gram negative bacilli Blood cx pending ID on board recommended to continue Dapto and Zosyn IV WBC increased to 15K and lactic acid trending down 2.1 Received adequate fluid resuscitation and BP stable Blood cx no growth so far Continue monitor in the ICU (3) Metabolic encephalopathy: Due to sepsis CT head showed no acute intracranial abnormality. Mental status improves (4) CAD (coronary artery disease): (5) Elevated troponin: Elevated troponin possible related to demand ischemia from sepsis and elevated creatinine Troponin peak to 19, trending down to 17 EKG showed no ischemic changes Was starting on IV heparin drip as per reticle printer ECHO showed no wall motion abnormality with EF 55-60% Continue aspirin and metoprolol Will monitor for bleeding while on heparin drip due to thrombocytopenia denies any chest pain (6) KEYSHA (acute kidney injury): (7) CKD (chronic kidney disease), stage III: Possible related to sepsis/dehydration Creatinine 2.95 on admission (baseline runs in the mid 1's) CT abd/pelvis showed mild right hydroureteronephrosis. Renal U/S showed no hydronephrosis Urology on board no surgical intervention since renal u/s showed no obstructing stone. Continue IVF Creatinine improves to 2.1 today Avoid nephrotoxic agents Monitor BMP (8) Pancytopenia: WBC 0.85, H/H 10.3/30.6, platelets 120 K, ANC 0.62 on admission Likely secondary to sepsis No anaplasmosis, no platelet clumping, no increase in spherocytes and schistocytes identified on peripheral smear Platelet slightly increased and WBC 15k now (9) Hypertension: Hypotension on admission BP elevated now Continue metoprolol Will consider to resume amlodipine Monitor BP (10) DVT prophylaxis: SCDs due to thrombocytopenia CODE STATUS FULL CODE Disposition Continue monitor in ICU Subjective Pt was seen and examined Lying in bed with no distress with family member at bedside Pt is more alert today She said that she is having back pain Brother said that she wheelchair bound and pushed her on the wheelchair Denies any chest pain, palpitation, dizziness and SOB Physical Exam Physical Exam: General- No acute distress Head- atraumatic Eyes- PERRL, EOMI, ENT- oropharynx clear Neck- supple, no JVD Lungs- clear to auscultation Heart- regular rhythm; no murmur Abdomen- normal bowel sounds, soft, nontender Extremities- no calf tenderness Neuro- alert, oriented (person and place); PERRL, EOMI; no facial palsy; no dysarthria Skin- warm & dry Results & Data Vital Signs (Past 12 Hours) Vital Signs Temp Pulse Resp BP Pulse Ox 06/16/19 18:00 76 16 160/76 H 93 06/16/19 17:00 84 16 110/87 93 06/16/19 16:00 36.4 C L 79 16 158/88 H 94 06/16/19 15:00 73 14 151/79 H 96 06/16/19 14:00 75 16 156/76 H 95 06/16/19 13:00 66 16 138/57 L 97 06/16/19 12:00 70 16 129/61 93 06/16/19 11:00 77 16 130/55 L 94 06/16/19 10:00 69 16 117/57 L 94 06/16/19 09:00 77 16 94 06/16/19 08:00 78 12 159/58 H 95 06/16/19 07:00 36.7 C 72 12 137/82 95 (1) CAD (coronary artery disease) Associated angina: without angina Coronary Disease-Associated Artery/Lesion type: [place] artery [place] vs. transplanted heart: [place] heart Qualified Code(s): I25.10 - Atherosclerotic heart disease of [place] coronary artery without angina pectoris
[2019-06-16 19:47] LABS: Partial Thromboplastin Ratio 3.1
[2019-06-16 20:38] LABS: Partial Thromboplastin Time 84.3 Seconds (21.0-31.0)
[2019-06-17 03:33] LABS: Bilirubin Direct 0.5 mg/dl (0-0.2); Creatinine Clr Calc Pharmacy 16.2 ml/min; Est GFR (African American) 23.2; Magnesium 1.9 mg/dl (1.8-2.4)
[2019-06-17 03:36] LABS: Bilirubin,Total 0.8 mg/dl (0.2-1); Partial Thromboplastin Ratio 2.3; Phosphorus 3.8 mg/dl (2.5-4.9); Total Protein 5.2 gm/dl (6.4-8.2)
[2019-06-17 03:39] LABS: Partial Thromboplastin Time 62.4 Seconds (21.0-31.0)
[2019-06-17] MEDS: NORMOSOL-R 1,000 ML IV SCH ×3 (04:58→20:41)
--- NOTE | 2019-06-17 05:56 | Critical Care Progress Note ---
Date of Service June 17, 2019 Assessment & Plan (1) Metabolic encephalopathy: Reason critically ill: Pt is an 84yo female with a PMHx significant for HTN, HLD, CAD who presents with AMS in the setting of septic shock. Stable for downgrade currently. NEURO -[facility] ICU POSITIVE -Head CT 06/14- no acute process -AMS likely secondary to acute infection, UTI due to possible kidney stone obstruction. -will continue to monitor CARDS/VASCULAR -HYPOTENSION -seemingly resolved 06/16 -continue to hold home amlodipine and metoprolol -central line in place, d/c heparin -Arterial line removed 06/16 out of concern that pt might self-remove. -will continue to monitor for need of pressor support -CAD -continue home aspirin -appreciate CARDS consult RESPIRATORY -Pt on room air currently and saturating well. -Chest xray on admission-no acute cardiopulm process -Chest xray post central line placement- no pneumothorax -will continue to monitor GI -Pt currently NPO -GI Prophylaxis: Pepcid 20mg BID IV RENAL//LYTES -Pt with KEYSHA slowly improving, Current Cr appears to be new baseline. -Likely pre-renal, continue Normosol @ 80 -UA indicating infection; likely contributory to AMS -Switched to Rocephin for an additional 8 days; stop Dapto and Zosyn -CT Abdomen pelvis: left calculi visualized, possible right sided calculi -Renal US: no evidence of hydronephrosis, no calculi visualized -Appreciate urology consult--will watch and wait ID -Sepsis resolving with recovered marrow counts -Likely due to UTI/kidney stone obstruction. -Also on differential, anaplasmosis/erlichiosis--less likely -Lyme neg, anaplasma labs pending, peripheral smear neg -procal in the setting of KEYSHA will not be helpful in this case -Blood cultures--NGTD and urine culture with Klebsiella and E. coli -Will switch from Zosyn to Rocephin for an additional 8 days, stop Dapto -Appreciate ID consult HEME -pancytopenia likely due to sepsis RESOLVED -will continue to monitor cbc q6h, coags ENDO ICU Protocol for hyperglycemia PIVs intact, Central Line DVT prophylaxis: SCDs, IV Hep Code Status: Full Dispo: Stable for downgrade Supervising Physician Co-Signing Physician Notes Dr. Myers was resident physician during care of patient. I separately evaluated patient for maldonado portions of the history and the exam. I was present during the critical portion of medical decision making, and I discussed the case with the resident. I generally agree with the findings and plan. Patient continues to make slow improvements. Urinary tract infection of the pansensitive E. coli and Klebsiella will de-escalate antibiotics to IV Rocephin for planned 10 days of total therapy, I am considering this a pyelonephritis, uncomplicated however if there is concern for a stone this may require additional interventions or therapeutic options. Unclear if elevated creatinine is reflective of chronic kidney disease. There is a definitive acute kidney injury regardless as her initial creatinine was 2.9 and greater than 0.3 increase of current creatinine of 2.19. Neutropenia has resolved. Central line can be discontinued and converted to peripheral IVs. Patient will be stable for downgrade out of ICU. Reviewed cardiology consultation, I think the elevated troponins is secondary to severe gram- negative sepsis and will discontinue anticoagulation at this time. Heparin 5000 twice daily for DVT prophylaxis. Thrombocytopenia improved she is greater than 100, chemical prophylaxis is indicated. Encephalopathy slowly improving however I do not feel the patient appropriate for oral intake at this time hopefully she will improve next 24 hours Subjective Pt seen this morning, sleeping in bed. No acute events overnight. Review of Systems 2 Review of Systems: Unobtainable due to cognitive status Physical Exam Physical Exam: General: Sleeping in bed HEENT: NC/AT Chest: Nontender to palpation. CV: RRR, Normal s1, s2. Resp: Breath sounds clear bilaterally on front, no increased effort of breathing. Abdomen: Soft, nontender. No guarding. Extremities: No edema. Results & Data Vital Signs (Past 12 Hours) Vital Signs Temp Pulse Resp BP Pulse Ox 06/17/19 04:01 36.9 C 74 93 06/17/19 04:00 71 163/73 H 93 06/17/19 03:50 75 93 06/17/19 03:40 73 93 06/17/19 03:30 71 93 06/17/19 03:20 74 93 06/17/19 03:10 74 92 06/17/19 03:01 75 94 06/17/19 03:00 72 136/60 94 06/17/19 02:50 75 93 06/17/19 02:40 76 93 06/17/19 02:30 72 93 06/17/19 02:20 78 94 06/17/19 02:10 74 94 06/17/19 02:01 76 94 06/17/19 02:00 75 154/73 H 93 06/17/19 01:50 74 93 07 01:40 73 92 06/17/19 01:30 73 93 06/17/19 01:20 75 93 06/17/19 01:10 77 93 06/17/19 01:01 77 93 06/17/19 01:00 74 161/69 H 94 06/17/19 00:50 73 94 06/17/19 00:40 72 93 06/17/19 00:30 73 93 06/17/19 00:20 76 93 06/17/19 00:10 76 93 06/17/19 00:01 73 94 06/17/19 00:00 74 161/67 H 93 06/16/19 23:50 77 93 20 23:40 76 93 06/16/19 23:30 71 93 06/16/19 23:20 74 93 06/16/19 23:10 76 92 06/16/19 23:01 75 93 06/16/19 23:00 76 155/66 H 92 20 22:50 77 93 20 22:40 78 92 20 22:30 77 92 06/16/19 22:20 76 91 06/16/19 22:10 79 93 06/16/19 22:00 75 138/66 91 0720/19 21:50 73 93 20 21:40 75 93 20 21:30 75 92 2019 21:20 77 92 072019 21:11 83 98/79 L 94 06/16/19 21:10 86 95 072019 21:00 81 78 L 2019 20:50 81 92 072019 20:40 78 93 072019 20:30 79 94 0720/19 20:20 82 93 0720/19 20:10 89 93 2019 20:04 84 175/72 H 94 20 20:00 37.3 C 89 80 L 20 19:55 80 92 20 19:40 78 94 0720 19:30 73 94 06/16/19 19:20 78 93 06/16/19 19:10 78 93 06/16/19 19:00 82 160/66 H 94 06/16/19 18:50 88 92 06/16/19 18:40 83 93 06/16/19 18:30 77 93 06/16/19 18:20 72 94 06/16/19 18:10 76 93 06/16/19 18:02 70 93 06/16/19 18:00 76 16 160/76 H 93 Laboratory Results Laboratory Results - last 24 hr 06/16/19 06/16/19 06/16/19 08:06 08:06 08:06 WBC RBC Hgb Hct MCV MCH MCHC RDW Std Deviation RDW Coeff of Jose Plt Count MPV Immature Gran % (Auto) Neut % (Auto) Lymph % (Auto) Payne % (Auto) Eos % (Auto) Baso % (Auto) Immature Gran # (Auto) Neut # (Auto) Lymph # (Auto) Payne # (Auto) Eos # (Auto) Baso # (Auto) Neutrophils % (Manual) Lymphocytes % (Manual) Metamyelocytes % (Man) Neutrophils # (Manual) Total Absolute Neuts Lymphocytes # (Manual) Total Abs Lymphocytes Metamyelocytes # (Man) Toxic Granulation Toxic Vacuolation Dohle Bodies Platelet Estimate Echinocytes PT INR APTT PTT Ratio Fibrinogen Creatinine Est Cr Clr Drug Dosing Est GFR ( Amer) Est GFR (Non-Af Amer) POC Glucose Lactate 3.1 H* Ionized Calcium 0.92 L Phosphorus Magnesium Total Bilirubin Direct Bilirubin AST ALT Alkaline Phosphatase Troponin I 17.100 H* Total Protein Albumin Lipase Procalcitonin 06/16/19 06/16/19 06/16/19 08:07 11:08 11:49 WBC 10.90 H RBC 2.72 L Hgb 8.7 L Hct 25.6 L MCV 94.1 MCH 32.0 MCHC 34.0 RDW Std Deviation 51.6 H RDW Coeff of Jose 15.1 H Plt Count 111 L MPV 11.1 H Immature Gran % (Auto) Neut % (Auto) Lymph % (Auto) Payne % (Auto) Eos % (Auto) Baso % (Auto) Immature Gran # (Auto) Neut # (Auto) Lymph # (Auto) Payne # (Auto) Eos # (Auto) Baso # (Auto) Neutrophils % (Manual) 77.0 Lymphocytes % (Manual) 15.9 Metamyelocytes % (Man) 7.1 Neutrophils # (Manual) 8.39 H Total Absolute Neuts 8.39 H Lymphocytes # (Manual) 1.73 Total Abs Lymphocytes 1.73 Metamyelocytes # (Man) 0.77 H Toxic Granulation Toxic Vacuolation Dohle Bodies Platelet Estimate Decreased L Echinocytes 1+ PT INR APTT 89.8 H* PTT Ratio 3.3 Fibrinogen Creatinine Est Cr Clr Drug Dosing Est GFR ( Amer) Est GFR (Non-Af Amer) POC Glucose 90 Lactate Ionized Calcium Phosphorus Magnesium Total Bilirubin Direct Bilirubin AST ALT Alkaline Phosphatase Troponin I Total Protein Albumin Lipase Procalcitonin 06/16/19 06/16/19 06/16/19 15:46 16:57 16:57 WBC 15.97 H RBC 2.83 L Hgb 8.9 L Hct 26.7 L MCV 94.3 MCH 31.4 MCHC 33.3 RDW Std Deviation 52.0 H RDW Coeff of Jose 15.1 H Plt Count 103 L MPV 10.9 H Immature Gran % (Auto) 3.1 Neut % (Auto) 86.1 Lymph % (Auto) 7.6 Payne % (Auto) 2.9 Eos % (Auto) 0.2 Baso % (Auto) 0.1 Immature Gran # (Auto) 0.50 H Neut # (Auto) 13.76 H Lymph # (Auto) 1.21 Payne # (Auto) 0.46 Eos # (Auto) 0.03 Baso # (Auto) 0.01 Neutrophils % (Manual) Lymphocytes % (Manual) Metamyelocytes % (Man) Neutrophils # (Manual) Total Absolute Neuts Lymphocytes # (Manual) Total Abs Lymphocytes Metamyelocytes # (Man) Toxic Granulation 1+ Toxic Vacuolation 2+ Dohle Bodies 2+ Platelet Estimate Echinocytes 1+ PT 13.1 H INR 1.3 H APTT PTT Ratio Fibrinogen 549 H D Creatinine Est Cr Clr Drug Dosing Est GFR ( Amer) Est GFR (Non-Af Amer) POC Glucose Lactate 2.1 H* Ionized Calcium Phosphorus Magnesium Total Bilirubin Direct Bilirubin AST ALT Alkaline Phosphatase Troponin I Total Protein Albumin Lipase Procalcitonin 06/16/19 06/16/19 06/16/19 17:36 19:06 19:06 WBC RBC Hgb Hct MCV MCH MCHC RDW Std Deviation RDW Coeff of Jose Plt Count MPV Immature Gran % (Auto) Neut % (Auto) Lymph % (Auto) Payne % (Auto) Eos % (Auto) Baso % (Auto) Immature Gran # (Auto) Neut # (Auto) Lymph # (Auto) Payne # (Auto) Eos # (Auto) Baso # (Auto) Neutrophils % (Manual) Lymphocytes % (Manual) Metamyelocytes % (Man) Neutrophils # (Manual) Total Absolute Neuts Lymphocytes # (Manual) Total Abs Lymphocytes Metamyelocytes # (Man) Toxic Granulation Toxic Vacuolation Dohle Bodies Platelet Estimate Echinocytes PT INR APTT 84.3 H* PTT Ratio 3.1 Fibrinogen Creatinine Est Cr Clr Drug Dosing Est GFR ( Amer) Est GFR (Non-Af Amer) POC Glucose 91 Lactate Ionized Calcium Phosphorus Magnesium Total Bilirubin Direct Bilirubin AST ALT Alkaline Phosphatase Troponin I Total Protein Albumin Lipase Procalcitonin 5.80 H 06/17/19 06/17/19 06/17/19 03:03 03:03 05:32 WBC RBC Hgb Hct MCV MCH MCHC RDW Std Deviation RDW Coeff of Jose Plt Count MPV Immature Gran % (Auto) Neut % (Auto) Lymph % (Auto) Payne % (Auto) Eos % (Auto) Baso % (Auto) Immature Gran # (Auto) Neut # (Auto) Lymph # (Auto) Payne # (Auto) Eos # (Auto) Baso # (Auto) Neutrophils % (Manual) Lymphocytes % (Manual) Metamyelocytes % (Man) Neutrophils # (Manual) Total Absolute Neuts Lymphocytes # (Manual) Total Abs Lymphocytes Metamyelocytes # (Man) Toxic Granulation Toxic Vacuolation Dohle Bodies Platelet Estimate Echinocytes PT INR APTT 62.4 H* PTT Ratio 2.3 Fibrinogen Creatinine 2.19 H Est Cr Clr Drug Dosing 16.2 Est GFR ( Amer) 23.2 Est GFR (Non-Af Amer) 20.0 POC Glucose 80 Lactate Ionized Calcium Phosphorus 3.8 Magnesium 1.9 Total Bilirubin 0.8 Direct Bilirubin 0.5 H AST 38 H ALT 30 Alkaline Phosphatase 67 Troponin I Total Protein 5.2 L Albumin 2.0 L Lipase 28 L Procalcitonin Medications Administered Home Medications amlodipine 5 mg PO DAILY 06/15/19 [History Confirmed 06/15/19] aspirin 81 mg PO DAILY 06/15/19 [History Confirmed 06/15/19] calcium carbonate [Calcium 600] 600 mg PO DAILY 06/15/19 [History Confirmed 06/15/19] celecoxib 100 mg PO BID 06/15/19 [History Confirmed 06/15/19] metoprolol succinate 100 mg PO DAILY 06/15/19 [History Confirmed 06/15/19] nitroglycerin [Nitrostat] 0.4 mg SUBLINGUAL USEASDIRECTD PRN 06/15/19 [History Confirmed 06/15/19] oxybutynin chloride 2.5 mg PO BID 06/15/19 [History Confirmed 06/15/19] potassium chloride 20 meq PO DAILY 06/15/19 [History Confirmed 06/15/19] triamterene-hydrochlorothiazid 1 tab PO DAILY 06/15/19 [History Confirmed 06/15/19] Active Medications Acetaminophen (Tylenol) 650 mg PO Q4H PRN PRN Reason: Pain or Fever Stop: 07/15/19 10:18 Aspirin (Ecotrin Ectab) 81 mg PO DAILY [facility] Stop: 07/16/19 08:59 Last Admin: 06/16/19 08:22 Dose: 81 mg Documented by: Heparin Sodium (Beef Lung) (Heparin Sod 10 Unit/Ml Flush) 5 ml FLUSH PRN PRN PRN Reason: Flush Stop: 07/16/19 00:41 Daptomycin 300 mg/ Syringe 6 mls @ 4 mls/min IV Q2D@1300 [facility]; Protocol Stop: 06/29/19 12:59 Piperacillin Sod/Tazobactam (Sod 4.5 gm/ Dextrose) 120 mls @ 30 mls/hr IV Q12H [facility]; Protocol Stop: 06/29/19 18:59 Last Admin: 06/17/19 06:35 Dose: 30 mls/hr Documented by: Parenteral Electrolytes (Normosol-R) 1,000 mls @ 80 mls/hr IV .[id number] [facility] Stop: 07/15/19 15:29 Last Admin: 06/17/19 04:58 Dose: 125 mls/hr Documented by: Famotidine 20 mg/ Syringe 5 mls @ 2.5 mls/min IV BID [facility] Stop: 07/15/19 20:59 Last Admin: 06/16/19 20:08 Dose: 2.5 mls/min Documented by: Heparin Sodium/Dextrose (Heparin Sodium/Dextrose) 25,000 units in 500 mls @ 15 mls/hr IV .Q24H [facility]; Protocol Stop: 07/16/19 06:44 Last Titration: 06/16/19 21:11 Dose: 750 units/hr, 15 mls/hr Documented by: Metoprolol Tartrate (Lopressor) 50 mg PO BID [facility] Stop: 07/15/19 20:59 Last Admin: 06/16/19 20:08 Dose: 50 mg Documented by: Miscellaneous Information (Consult) 1 ea N/A UD PRN PRN Reason: Consult Stop: 07/15/19 10:18 Multivitamins/Minerals (Caltrate Plus) 1 tab PO DAILY [facility] Stop: 07/16/19 08:59 Last Admin: 06/16/19 08:22 Dose: 1 tab Documented by: Oxybutynin Chloride (Ditropan) 2.5 mg PO BID [facility] Stop: 07/15/19 20:59 Last Admin: 06/16/19 20:09 Dose: 2.5 mg Documented by: Thiamine HCl (Vitamin B-1) 100 mg PO QAM [facility] Stop: 07/15/19 14:59 Last Admin: 06/16/19 08:22 Dose: 100 mg Documented by:
[2019-06-17] MEDS: PIPERACILLIN/TAZOBACTAM 4.5 GM in DEXTROSE 5% 100 ML IV SCH (06:35)
[2019-06-17] MEDS ORDERED: cefTRIAXone SODIUM 1,000 MG/50 ML BAG IV STA (07:21)
[2019-06-17] MEDS: FAMOTIDINE 20 MG in SYRINGE 3 ML IV SCH (08:02)
[2019-06-17] MEDS: cefTRIAXone SODIUM 1,000 MG in DEXTROSE 5% 50 ML IV SCH (08:02)
[2019-06-17] MEDS: THIAMINE HCL 100 MG TAB PO SCH (08:05)
[2019-06-17] MEDS: OXYBUTYNIN CHLORIDE 5 MG TAB PO SCH ×2 (08:05→20:53)
[2019-06-17] MEDS: CALCIUM 600MG + VIT D 400 IU TAB PO SCH (08:05)
[2019-06-17] MEDS: ASPIRIN 81 MG ECTAB PO SCH (08:05)
[2019-06-17] MEDS: METOPROLOL TARTRATE 50 MG TAB PO SCH ×2 (08:05→20:53)
--- NOTE | 2019-06-17 12:10 | Cardiology Progress Note ---
Date of Service June 17, 2019 Assessment & Plan (1) Elevated troponin I level: (2) CAD (coronary artery disease): (3) UTI (urinary tract infection): (4) Neutropenia: (5) Thrombocytopenia: Complex 84-year-old female presents with altered mental status and severe sepsis. Elevated troponins likely secondary to type II event, demand ischemia, hypotension, in the setting of severe sepsis and hypotension. Platelet count trending upward. Patient currently without anginal symptoms or ischemic ECG changes. Echocardiogram demonstrates normal wall motion. No dysrhythmias on telemetry. IV heparin may be discontinued. Recommend transition to subcu heparin and/or SCDs for DVT prophylaxis. Continue to monitor CBC closely for worsening thrombocytopenia. Currently no signs/symptoms of GI/ blood loss. Antibiotics per infectious disease service. Subjective Patient seen and examined at the bedside. Confused today. Urine culture growing Klebsiella. Denies chest pain or shortness of breath. Family at bedside. No dysrhythmias on telemetry. Repeat ECG without ischemic changes. Review of Systems Review of Systems: All systems reviewed & are unremarkable except as noted in HPI & below Physical Exam Physical Exam: General: NAD, confused. More somnolent today. HEENT: Normocephalic. Atraumatic. Conjunctiva pink, no scleral icterus. Neck: No carotid bruits, the carotid upstrokes are brisk. No JVD. No HJR Heart: Regular normal S-1 and S-2 no S-3 or S-4 gallop. No murmurs or rub appreciated. PMI is not displaced. No RV heave. Lungs: Clear bilateral without rales , rhonchi, or wheeze. Abdomen: Normal bowel sounds. Soft. Nontender. No masses or organomegaly . No abdominal bruits. Extremities: No clubbing, cyanosis, or edema. Pulses: radial=2/4, Dorsalis pedis =2/4, posterior tibial=2/4. Neuro: Cranial nerves grossly intact. Moves all extremities. Results & Data Vital Signs (Past 12 Hours) Vital Signs Temp Pulse Resp BP Pulse Ox 06/17/19 10:00 62 16 140/59 L 95 06/17/19 09:00 63 16 147/70 H 95 06/17/19 08:00 63 16 162/64 H 94 06/17/19 07:00 36.4 C L 67 16 167/74 H 93 06/17/19 06:01 67 94 06/17/19 06:00 67 159/60 H 94 06/17/19 05:50 68 94 06/17/19 05:40 63 94 06/17/19 05:30 72 94 06/17/19 05:20 71 93 06/17/19 05:10 70 93 06/17/19 05:00 70 149/58 H 93 06/17/19 04:50 74 93 06/17/19 04:40 73 92 06/17/19 04:30 74 93 06/17/19 04:20 69 93 06/17/19 04:10 80 91 06/17/19 04:01 36.9 C 74 93 06/17/19 04:00 71 163/73 H 93 06/17/19 03:50 75 93 06/17/19 03:40 73 93 06/17/19 03:30 71 93 06/17/19 03:20 74 93 06/17/19 03:10 74 92 06/17/19 03:01 75 94 06/17/19 03:00 72 136/60 94 06/17/19 02:50 75 93 06/17/19 02:40 76 93 06/17/19 02:30 72 93 06/17/19 02:20 78 94 06/17/19 02:10 74 94 06/17/19 02:01 76 94 06/17/19 02:00 75 154/73 H 93 06/17/19 01:50 74 93 06/17/19 01:40 73 92 06/17/19 01:30 73 93 06/17/19 01:20 75 93 06/17/19 01:10 77 93 06/17/19 01:01 77 93 06/17/19 01:00 74 161/69 H 94 06/17/19 00:50 73 94 06/17/19 00:40 72 93 06/17/19 00:30 73 93 06/17/19 00:20 76 93 06/17/19 00:10 76 93 (1) CAD (coronary artery disease) Coronary Disease-Associated Artery/Lesion type: [place] artery [place] vs. transplanted heart: [place] heart Associated angina: without angina Qualified Code(s): I25.10 - Atherosclerotic heart disease of [place] coronary artery without angina pectoris (2) UTI (urinary tract infection) Hematuria presence: with hematuria Urinary tract infection type: site unspecified Qualified Code(s): N39.0 - Urinary tract infection, site not specified; R31.9 - Hematuria, unspecified (3) Neutropenia Neutropenia type: unspecified Qualified Code(s): D70.9 - Neutropenia, unspecified
[2019-06-17] MEDS ORDERED: DAPTOmycin 300 MG in SYRINGE 0 ML IV SCH (13:00)
[2019-06-17] MEDS: Heparin Adult STANDARD Wt-Based Dextrose 5% 25,000 units/500 mL IV SCH (13:02)
--- NOTE | 2019-06-17 17:21 | Hospitalist Progress Note ---
Date of Service June 17, 2019 Assessment & Plan (1) Severe sepsis: (2) UTI (urinary tract infection): Present on admission with altered mental status Met sepsis criteria on admission with neutropenic with WBC 0.85, tachycardic, elevated lactic acid, hypotension CT abd/pelvis showed mild right hydroureteronephrosis. Urine cx grew Klebsiella and E.Coli Blood cx no growth ID on board rand he has been on Dapto and Zosyn IV WBC increased to 15K and lactic acid trending down 2.1 Received adequate fluid resuscitation and BP stable Abx de-escalated to Rocephin IV Clinically improved OK from Drafter Assistant standpoint to transfer out of the ICU (3) Metabolic encephalopathy: Due to sepsis CT head showed no acute intracranial abnormality. Mental status improves Continue monitor (4) CAD (coronary artery disease): (5) Elevated troponin: Elevated troponin possible related to demand ischemia from sepsis and elevated creatinine Troponin peak to 19, trending down to 17 EKG showed no ischemic changes On IV heparin drip started per manager risk management ECHO showed no wall motion abnormality with EF 55-60% Continue aspirin and metoprolol Ok from Drafter Assistant to d/c heparin drip Will transition to Subq heparin as per cardiology Denies any chest pain Will monitor for bleeding while on heparin subq due to thrombocytopenia Monitor CBC (6) KEYSHA (acute kidney injury): (7) CKD (chronic kidney disease), stage III: Possible related to sepsis/dehydration Creatinine 2.95 on admission (baseline runs in the mid 1's) CT abd/pelvis showed mild right hydroureteronephrosis. Renal U/S showed no hydronephrosis Urology on board no surgical intervention since renal u/s showed no obstructing stone. Creatinine remains 2.1 today Continue Gentle IVF Avoid nephrotoxic agents Monitor BMP (8) Pancytopenia: WBC 0.85, H/H 10.3/30.6, platelets 120 K, ANC 0.62 on admission Likely secondary to sepsis No anaplasmosis, no platelet clumping, no increase in spherocytes and schistocytes identified on peripheral smear Platelet slightly increased and WBC 15k now Monitor CBC (9) Hypertension: Hypotension on admission BP elevated now Continue metoprolol Will resume amlodipine once able to take oral Monitor BP (10) DVT prophylaxis: SCDs due to thrombocytopenia CODE STATUS FULL CODE Disposition Will transfer to telemetry Subjective Pt was seen and examined Lying in bed comfortable with no distress with brother at bedside Pt said that she is hungry and was hoping to eat something for dinner She is more awake today Denies any chest pain, palpitation, dizziness and SOB Physical Exam Physical Exam: General- No acute distress Head- atraumatic Eyes- PERRL, EOMI, ENT- oropharynx clear Neck- supple, no JVD Lungs- clear to auscultation Heart- regular rhythm; no murmur Abdomen- normal bowel sounds, soft, nontender Extremities- no calf tenderness Neuro- alert, oriented (person and place); PERRL, EOMI; no facial palsy; no dysarthria Skin- warm & dry Results & Data Vital Signs (Past 12 Hours) Vital Signs Temp Pulse Resp BP Pulse Ox 06/17/19 15:00 56 L 18 165/72 H 97 06/17/19 14:00 57 L 18 147/71 H 96 06/17/19 13:00 59 L 16 144/62 H 95 06/17/19 12:00 36.5 C 62 16 154/68 H 94 06/17/19 11:00 57 L 16 163/94 H 95 06/17/19 10:00 62 16 140/59 L 95 06/17/19 09:00 63 16 147/70 H 95 06/17/19 08:00 63 16 162/64 H 94 06/17/19 07:00 36.4 C L 67 16 167/74 H 93 06/17/19 06:01 67 94 06/17/19 06:00 67 159/60 H 94 06/17/19 05:50 68 94 06/17/19 05:40 63 94 06/17/19 05:30 72 94 06/17/19 05:20 71 93 (1) CAD (coronary artery disease) Associated angina: without angina Coronary Disease-Associated Artery/Lesion type: [place] artery [place] vs. transplanted heart: [place] heart Qualified Code(s): I25.10 - Atherosclerotic heart disease of [place] coronary artery without angina pectoris
[2019-06-17] MEDS: HEPARIN SOD 5,000 UNIT/0.5 ML VIAL SQ SCH (22:09)
[2019-06-18] MEDS: NORMOSOL-R 1,000 ML IV SCH (04:14)
[2019-06-18 06:27] LABS: Hematocrit (blood only) 25.7 % (37-47); Hemoglobin 8.6 g/dL (12.0-16.0); Mean Corpuscular Hgb Conc 33.5 g/dL (32-36); Mean Corpuscular Volume 93.5 fL (80-100); RDW Coefficient of Variation 14.8 % (11.5-14.5); RDW Standard Deviation 50.8 fL (36.4-46.3); Red Blood Count 2.75 M/uL (4.2-5.4); White Blood Count 11.08 K/uL (4.8-10.8)
[2019-06-18 06:31] LABS: Mean Platelet Volume 11.3 fL (7.4-10.4); Platelet Count 81 K/uL (130-400)
[2019-06-18 07:09] LABS: Calcium 7.3 mg/dl (8.5-10.1); Creatinine Clr Calc Pharmacy 18.2 ml/min; Est GFR (African American) 24.9; Est GFR (Non-African American) 21.4; Potassium 3.4 mmol/L (3.5-5.1)
[2019-06-18 07:20] LABS: Platelet Estimate Decreased (Normal)
[2019-06-18 08:02] LABS: Dohle Bodies 2+; Toxic Vacuolation 3+
[2019-06-18] MEDS: cefTRIAXone SODIUM 1,000 MG in DEXTROSE 5% 50 ML IV SCH (08:07)
[2019-06-18] MEDS: HEPARIN SOD 5,000 UNIT/0.5 ML VIAL SQ SCH (08:25)
[2019-06-18] MEDS: OXYBUTYNIN CHLORIDE 5 MG TAB PO SCH ×2 (08:25→21:56)
[2019-06-18] MEDS: METOPROLOL TARTRATE 50 MG TAB PO SCH ×2 (08:25→21:56)
[2019-06-18] MEDS: CALCIUM 600MG + VIT D 400 IU TAB PO SCH (08:25)
[2019-06-18] MEDS: THIAMINE HCL 100 MG TAB PO SCH (08:25)
[2019-06-18] MEDS: PANTOprazole 40 MG TAB PO SCH (08:25)
[2019-06-18] MEDS: ASPIRIN 81 MG ECTAB PO SCH (08:25)
[2019-06-18] MEDS ORDERED: AMLODIPINE BESYLATE 5 MG TAB PO SCH (09:00)
[2019-06-18] MEDS ORDERED: POTASSIUM CHLORIDE 20 MEQ TABCR PO STA (09:04)
--- NOTE | 2019-06-18 09:46 | Urology Progress Note ---
Date of Service June 18, 2019 Assessment & Plan (1) UTI (urinary tract infection): Presumed pyelonephritis. Will recheck renal US today. Patient appears to be clinically responding to antibiotics. Recommend transition to PO therapy for a total of 14 days of coverage per sensitivities. Outpatient URO follow up has been arranged. Thank you for allowing us to participate in the inpatient care of Ms. Alas. Please contact our service if we can be of further assistance during hospitalization. Subjective 84 YO female with presumed pyelonephritis. Feeling well today, offers no complaints. No fevers/chills. [place] in place draining clear yellow urine. No bladder or flank pain. Review of Systems Constitutional: no fever and no chills Eyes: no worsening vision Ear, Nose, Mouth, Throat: no hearing loss Respiratory: no dyspnea Cardiovascular: no chest pain Gastrointestinal: no abdominal pain, no nausea and no vomiting Genitourinary: as per Subjective / HPI Musculoskeletal: no back pain Neurologic: no numbness Endocrine: + fatigue Physical Exam Constitutional: no acute distress ENMT: Ears: no hearing impairment Neck: normal visual inspection Respiratory: no respiratory distress and no labored breathing Cardiovascular: Vessels: no JVD Gastrointestinal (Abdomen): Inspection/Auscultation: abdomen not distended Percussion/Palpation: abdomen soft; abdomen nontender Psychiatric: Orientation: alert and cooperative Genitourinary: Speculum/Bimanual Exam: bladder normal to palpation Results & Data Vital Signs (Past 12 Hours) Vital Signs Temp Pulse Pulse Pulse Resp BP Pulse Ox 06/18/19 07:45 68 06/18/19 07:00 36.9 C 67 18 179/80 H 96 06/18/19 04:00 36.3 C L 62 18 173/66 H 95 06/17/19 22:55 36.6 C 67 18 145/58 H 97 (1) UTI (urinary tract infection) Hematuria presence: with hematuria Urinary tract infection type: site unspecified Qualified Code(s): N39.0 - Urinary tract infection, site not specified; R31.9 - Hematuria, unspecified
--- NOTE | 2019-06-18 17:57 | Infectious Disease Progress Nt ---
Date of Service June 18, 2019 Assessment & Plan (1) Sepsis: 84-year-old female with sepsis, likely from urinary tract infection setting of nephrolithiasis, culture positive for E. coli and Klebsiella. Would recommend cefdinir 300 mg bid for 14 days. Will follow. (2) UTI (urinary tract infection): Subjective 84 YO female with presumed pyelonephritis. Feeling well today, offers no complaints. No fevers/chills. Dodson in place draining clear yellow urine. No bladder or flank pain. Cultures with sensitive E coli and Klebsiella. Review of Systems Review of Systems: All systems reviewed & are unremarkable except as noted in HPI & below Physical Exam Constitutional: WD/WN, vitals as above + ill appearing and comfortable; no acute distress Eyes: PERRL, conjunctivae normal, anicteric sclerae ENMT: external ear and nose normal, oropharynx normal Neck: trachea midline, no thyromegaly neck nontender Respiratory: normal respiratory effort, lungs clear to auscultation normal percussion; does not use accessory muscles Cardiovascular: Rate/Rhythm: regular rate and regular rhythm Heart Sounds: normal S1 and normal S2; no gallop, no murmur and no cardiac rub Vessels: normal peripheral pulses; no JVD Gastrointestinal (Abdomen): Inspection/Auscultation: abdomen normal to inspection Percussion/Palpation: + abdomen tender; no hepatosplenomegaly and no abdominal mass Musculoskeletal: no cyanosis or clubbing, extremities motor strength 5/5 Spine: thoracic spine normal to inspection and lumbar spine normal to inspection; no cervical spinal tenderness Skin: no rashes, warm and dry normal turgor; no lesions Neurologic: patellar DTR's 2+ bilat, sensation intact no focal motor deficits Psychiatric: A+Ox3, euthymic affect Orientation: cooperative Lymphatic: no cervical or axillary lymphadenopathy no inguinal lymphadenopathy Results & Data Vital Signs (Past 12 Hours) Vital Signs Temp Pulse Pulse Pulse Resp BP Pulse Ox 06/18/19 15:08 36.4 C L 68 16 172/68 H 96 06/18/19 11:00 36.2 C L 67 20 165/64 H 94 06/18/19 07:45 68 06/18/19 07:00 36.9 C 67 18 179/80 H 96 Laboratory Results Short CBC 06/18/19 Range/Units 05:32 WBC 11.08 H (4.8-10.8) K/uL Hgb 8.6 L (12.0-16.0) g/dL Hct 25.7 L (37-47) % Plt Count 81 L (130-400) K/uL BMP 06/18/19 05:32 Sodium 142 Potassium 3.4 L Chloride 109 H Carbon Dioxide 20 L BUN 41 H Creatinine 2.07 H Glucose 79 Calcium 7.3 L Diagnostic Findings Microbiology 06/15/19 09:48 Blood Aerobic Blood Culture - Preliminary No growth in Aerobic bottle after 48 hours. 06/15/19 09:48 Blood Anaerobic Blood Culture - Preliminary No growth in Anaerobic bottle after 48 hours. 06/15/19 09:52 Blood Aerobic Blood Culture - Preliminary No growth in Aerobic bottle after 48 hours. 06/15/19 09:52 Blood Anaerobic Blood Culture - Preliminary No growth in Anaerobic bottle after 48 hours. 06/15/19 06:58 Urine,Indwelling Cath Urine Culture - Final Klebsiella pneumoniae Escherichia coli (1) Sepsis Sepsis type: sepsis due to unspecified organism Qualified Code(s): A41.9 - Sepsis, unspecified organism (2) UTI (urinary tract infection) Hematuria presence: with hematuria Urinary tract infection type: site unspecified Qualified Code(s): N39.0 - Urinary tract infection, site not specified; R31.9 - Hematuria, unspecified
--- NOTE | 2019-06-18 18:10 | Hospitalist Progress Note ---
Date of Service June 18, 2019 Assessment & Plan (1) Severe sepsis: (2) UTI (urinary tract infection): Present on admission with altered mental status Met sepsis criteria on admission with neutropenic with WBC 0.85, tachycardic, elevated lactic acid, hypotension Possible related to pyelonephritis CT abd/pelvis showed mild right hydroureteronephrosis. Urine cx grew Klebsiella and E.Coli Blood cx no growth ID on board rand he has been on Dapto and Zosyn IV WBC increased to 15K and lactic acid trending down 2.1 Received adequate fluid resuscitation and BP stable Abx de-escalated to Rocephin IV ID on board recommended to change abx to cefdinir 300mg BID to complete a total 14 days course abx Clinically improved (3) Metabolic encephalopathy: Due to sepsis CT head showed no acute intracranial abnormality. Clinically improves (4) CAD (coronary artery disease): (5) Elevated troponin: Possible related to demand ischemia from sepsis and elevated creatinine Troponin peak to 19, trending down to 17 EKG showed no ischemic changes On IV heparin drip started per temperature regulator pyrometer ECHO showed no wall motion abnormality with EF 55-60% Continue aspirin and metoprolol Ok from Candy Forming Machine Operator to d/c heparin drip Transition to Subq heparin as per cardiology Will monitor for bleeding while on heparin subq due to thrombocytopenia Denies any chest pain (6) KEYSHA (acute kidney injury): (7) CKD (chronic kidney disease), stage III: Possible related to sepsis/dehydration Creatinine 2.95 on admission (baseline runs in the mid 1's) CT abd/pelvis showed mild right hydroureteronephrosis. Renal U/S showed no hydronephrosis Urology on board no surgical intervention since renal u/s showed no obstructing stone. Urology recommended to repeat renal U/S Creatinine remains 2.07 today Discontinued IVF Avoid nephrotoxic agents Monitor BMP Outpatient follow up with urology (8) Pancytopenia: WBC 0.85, H/H 10.3/30.6, platelets 120 K, ANC 0.62 on admission Likely secondary to sepsis No anaplasmosis, no platelet clumping, no increase in spherocytes and schistocytes identified on peripheral smear Platelet 81 and WBC 11k and hbg 8.6 Monitor CBC (9) Hypertension: Hypotension on admission BP elevated now Continue metoprolol and Amlodipine Monitor BP (10) DVT prophylaxis: Will hold heparin subq due to low platelet 81 SCDs CODE STATUS FULL CODE Disposition Continue monitor in tele Subjective Pt was seen and examined Lying in bed with no distress family has bedside and very happy that patient looks much better Pt said that she feels good today She was able to tolerate full liquid diet Daughter said that pt was able to use a walker to take 5 to 10 steps in the house Denies any chest pain, palpitation, dizziness and SOB Physical Exam Physical Exam: General- No acute distress Head- atraumatic Eyes- PERRL, EOMI, ENT- oropharynx clear Neck- supple, no JVD Lungs- clear to auscultation Heart- regular rhythm; no murmur Abdomen- normal bowel sounds, soft, nontender Extremities- no calf tenderness Neuro- alert, oriented (person and place); PERRL, EOMI; no facial palsy; no dysarthria Skin- warm & dry Results & Data Vital Signs (Past 12 Hours) Vital Signs Temp Pulse Pulse Pulse Resp BP Pulse Ox 06/18/19 15:08 36.4 C L 68 16 172/68 H 96 06/18/19 11:00 36.2 C L 67 20 165/64 H 94 06/18/19 07:45 68 06/18/19 07:00 36.9 C 67 18 179/80 H 96 (1) CAD (coronary artery disease) Associated angina: without angina Coronary Disease-Associated Artery/Lesion type: [place] artery [place] vs. transplanted heart: [place] heart Qualified Code(s): I25.10 - Atherosclerotic heart disease of [place] coronary artery without angina pectoris
[2019-06-18] MEDS ORDERED: HydrALAZINE HCL 20 MG/ML VIAL IV PRN (18:22)
--- NOTE | 2019-06-18 22:10 | Ultrasound Report ---
RENAL ULTRASOUND HISTORY: Hydronephrosis COMPARISON: Renal ultrasound 06/15/2019. FINDINGS: Right kidney: 8.6 cm. No hydronephrosis. Moderate cortical thinning with normal corticomedullary diff erentiation. Left kidney: 10.0 cm. No hydronephrosis. Moderate cortical thinning with normal corticomedullary diff erentiation. Bladder: Decompressed by Dodson catheter and not well visualized. IMPRESSION: No hydronephrosis. Electronically signed by: Dony Chin M.D. 06/18/2019 10:08 PM
[2019-06-19 05:51] LABS: Hemoglobin 8.7 g/dL (12.0-16.0); Mean Corpuscular Hgb Conc 33.5 g/dL (32-36); Mean Corpuscular Volume 94.5 fL (80-100); Nucleated RBC # (auto) 0.03 K/uL (0-0); Nucleated RBC % (auto) 0.3 %; RDW Coefficient of Variation 14.5 % (11.5-14.5); Red Blood Count 2.75 M/uL (4.2-5.4); White Blood Count 10.01 K/uL (4.8-10.8)
[2019-06-19 05:59] LABS: Mean Platelet Volume 11.8 fL (7.4-10.4); Platelet Count 70 K/uL (130-400)
[2019-06-19 06:22] LABS: BUN Creatinine Ratio 20.7 (10-20); Calcium 7.6 mg/dl (8.5-10.1); Creatinine Clr Calc Pharmacy 25.5 ml/min; Est GFR (African American) 37.9; Est GFR (Non-African American) 32.7; Potassium 3.3 mmol/L (3.5-5.1)
[2019-06-19] MEDS ORDERED: POTASSIUM CHLORIDE 20 MEQ TABCR PO ONE (08:00)
[2019-06-19] MEDS: METOPROLOL TARTRATE 50 MG TAB PO SCH ×2 (08:49→21:08)
[2019-06-19] MEDS: AMLODIPINE BESYLATE 5 MG TAB PO SCH (08:50)
[2019-06-19] MEDS: OXYBUTYNIN CHLORIDE 5 MG TAB PO SCH ×2 (08:50→21:07)
[2019-06-19] MEDS: CALCIUM 600MG + VIT D 400 IU TAB PO SCH (08:50)
[2019-06-19] MEDS: cefTRIAXone SODIUM 1,000 MG in DEXTROSE 5% 50 ML IV SCH (08:51)
[2019-06-19] MEDS: PANTOprazole 40 MG TAB PO SCH (08:51)
[2019-06-19] MEDS: THIAMINE HCL 100 MG TAB PO SCH (08:51)
[2019-06-19] MEDS: ASPIRIN 81 MG ECTAB PO SCH (08:51)
--- NOTE | 2019-06-19 20:03 | Hospitalist Progress Note ---
Date of Service June 19, 2019 Assessment & Plan (1) Severe sepsis: (2) UTI (urinary tract infection): Present on admission with altered mental status Met sepsis criteria on admission with neutropenic with WBC 0.85, tachycardic, elevated lactic acid, hypotension Possible related to pyelonephritis CT abd/pelvis showed mild right hydroureteronephrosis. Urine cx grew Klebsiella and E.Coli Blood cx no growth ID on board rand he has been on Dapto and Zosyn IV WBC increased to 15K and lactic acid trending down 2.1 Received adequate fluid resuscitation and BP stable Continue Rocephin IV WBC back to normal ID on board recommended to change abx to cefdinir 300mg BID to complete a total 14 days course abx Clinically improved (3) Metabolic encephalopathy: Due to sepsis CT head showed no acute intracranial abnormality. Clinically improves (4) CAD (coronary artery disease): (5) Elevated troponin: Possible related to demand ischemia from sepsis and elevated creatinine Troponin peak to 19, trending down to 17 EKG showed no ischemic changes On IV heparin drip started per pattern clerk ECHO showed no wall motion abnormality with EF 55-60% Continue aspirin and metoprolol Ok from Manager Of Financial to d/c heparin drip Transition to Subq heparin as per cardiology Subq heparin was d/c due to low platelet Denies any chest pain (6) KEYSHA (acute kidney injury): (7) CKD (chronic kidney disease), stage III: Possible related to sepsis/dehydration Creatinine 2.95 on admission (baseline runs in the mid 1's) CT abd/pelvis showed mild right hydroureteronephrosis. Renal U/S showed no hydronephrosis Urology on board no surgical intervention since renal u/s showed no obstructing stone. Repeat U/S showed no hydronephrosis. Creatinine remains 1.4 today Discontinued IVF Avoid nephrotoxic agents Monitor BMP Outpatient follow up with urology (8) Pancytopenia: WBC 0.85, H/H 10.3/30.6, platelets 120 K, ANC 0.62 on admission Likely secondary to sepsis No anaplasmosis, no platelet clumping, no increase in spherocytes and schistocytes identified on peripheral smear Platelet 70 and WBC 10k and hbg 8.7 Monitor CBC (9) Hypertension: Hypotension on admission BP elevated now Continue metoprolol and Amlodipine Monitor BP Generalized weakness Continue PT/OT Fall precaution OT recommended inpatient therapy to SNF (10) DVT prophylaxis: hold heparin subq due to low platelet 70 SCDs CODE STATUS FULL CODE Disposition Will discharge once medically stable Will need 2 more days Subjective Pt was seen and examined Lying in bed with no distress Pt said that she was sitting on the chair today Denies any chest pain, palpitation and dizziness Physical Exam Physical Exam: General- No acute distress Head- atraumatic Eyes- PERRL, EOMI, ENT- oropharynx clear Neck- supple, no JVD Lungs- clear to auscultation Heart- regular rhythm; no murmur Abdomen- normal bowel sounds, soft, nontender Extremities- no calf tenderness Neuro- alert, oriented (person and place); PERRL, EOMI; no facial palsy; no dysarthria Skin- warm & dry Results & Data Vital Signs (Past 12 Hours) Vital Signs Temp Pulse Pulse Pulse Resp BP Pulse Ox 06/19/19 19:46 36.6 C 78 20 167/78 H 97 06/19/19 15:06 36.6 C 72 20 147/75 H 96 06/19/19 14:53 67 06/19/19 11:59 37.7 C H 78 17 187/68 H 95 06/19/19 11:23 06/19/19 09:29 66 Pulse Ox 06/19/19 19:46 06/19/19 15:06 06/19/19 14:53 06/19/19 11:59 06/19/19 11:23 95 06/19/19 09:29 (1) CAD (coronary artery disease) Coronary Disease-Associated Artery/Lesion type: [place] artery [place] vs. transplanted heart: [place] heart Associated angina: without angina Qualified Code(s): I25.10 - Atherosclerotic heart disease of [place] coronary artery without angina pectoris
[2019-06-20 05:59] LABS: Hemoglobin 8.4 g/dL (12.0-16.0); Mean Corpuscular Hgb Conc 33.6 g/dL (32-36); Mean Corpuscular Volume 92.6 fL (80-100); Platelet Count 73 K/uL (130-400); RDW Coefficient of Variation 14.8 % (11.5-14.5); RDW Standard Deviation 50.4 fL (36.4-46.3); White Blood Count 11.77 K/uL (4.8-10.8)
[2019-06-20 06:19] LABS: BUN Creatinine Ratio 19.5 (10-20); Calcium 7.9 mg/dl (8.5-10.1); Creatinine Clr Calc Pharmacy 31.3 ml/min; Est GFR (African American) 48.5; Est GFR (Non-African American) 41.9; Potassium 3.3 mmol/L (3.5-5.1)
[2019-06-20 06:20] LABS: Basophils # (auto) 0.07 K/uL (0-0.2); Basophils % (auto) 0.6 %; Dohle Bodies 1+; Eosinophils % (auto) 0.8 %; Immature Granulocytes # (auto) 0.07 K/uL (0.00-0.02); Immature Granulocytes % (auto) 0.6 %; Lymphocytes % (auto) 17.8 %; Monocytes # (auto) 0.96 K/uL (0.11-0.59); Monocytes % (auto) 8.2 %; Neutrophils # (auto) 8.47 K/uL (1.4-6.5); Polychromasia 1+
[2019-06-20] MEDS: cefTRIAXone SODIUM 1,000 MG in DEXTROSE 5% 50 ML IV SCH (07:35)
[2019-06-20] MEDS: ASPIRIN 81 MG ECTAB PO SCH (08:04)
[2019-06-20] MEDS: METOPROLOL TARTRATE 50 MG TAB PO SCH (08:04)
[2019-06-20] MEDS: THIAMINE HCL 100 MG TAB PO SCH (08:05)
[2019-06-20] MEDS: CALCIUM 600MG + VIT D 400 IU TAB PO SCH (08:05)
[2019-06-20] MEDS: AMLODIPINE BESYLATE 5 MG TAB PO SCH (08:05)
[2019-06-20] MEDS: PANTOprazole 40 MG TAB PO SCH (08:05)
[2019-06-20] MEDS: OXYBUTYNIN CHLORIDE 5 MG TAB PO SCH (08:05)
--- NOTE | 2019-06-20 12:19 | CT Scan Report ---
CT SCAN OF THE BRAIN WITHOUT IV CONTRAST CLINICAL HISTORY: Strokelike symptoms. COMPARISON STUDY: CT of the brain dated 06/15/2019. TECHNIQUE: Unenhanced axial CT scan of the brain is performed from the vertex to the skull base. A do se lowering technique was utilized adhering to the principles of ALARA. CT DOSE: 537.48 mGy.cm FINDINGS: Brain parenchyma: There are age-related involutional changes noting moderate patchy subcortical and periventricular microangiopathic change. There is no hemorrhage, mass effect, or evidence of acute te rritorial ischemia by CT criteria. [place]-white matter differentiation is preserved. A chronic lacunar infarct is noted in the left cerebellar hemisphere. No extra-axial fluid collection is seen. Ventricles, sulci, cisterns: Prominent secondary to involutional change. Intracranial vasculature: There is atherosclerotic calcification of the cavernous carotid and vertebr al arteries. Calvarium: Unremarkable. Sinuses and mastoids: The visualized paranasal sinuses are clear. The mastoid air cells are well pneu matized. Orbits: The bony orbits are grossly intact. There are bilateral ocular lens implants. IMPRESSION: There is no hemorrhage, mass effect, or evidence of acute territorial ischemia by CT ruth ann guzman. Electronically signed by: Deo Sales M.D. 06/20/2019 12:18 PM
[2019-06-20] MEDS ORDERED: LORazepam 0.5 MG/1 ML VIAL IV PRN (13:19)
--- NOTE | 2019-06-20 13:23 | Hospitalist Progress Note ---
Date of Service June 20, 2019 Assessment & Plan (1) Acute CVA (cerebrovascular accident): Developed acute change in mental status: Unresponsiveness/right facial droop, right sided hemiparesis/hemineglect/absence of gag reflex-today morning Code stroke alert was called-evaluated by [facility] neuro stroke team IV TPA was not administered secondary to severe thrombocytopenia, anemia-very high bleeding risk Option for transfer to [facility] for mechanical thrombectomy was discussed with family members : Michael Alas, and rest of the family members wants patient to be comfortable only Does not want heroics, invasive procedures Care changed to palliative care/hospice (2) Severe sepsis: (3) UTI (urinary tract infection): Present on admission with altered mental status Met sepsis criteria on admission with neutropenic with WBC 0.85, tachycardic, elevated lactic acid, hypotension Possible related to pyelonephritis CT abd/pelvis showed mild right hydroureteronephrosis. 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, on comfort care hospice now (4) Metabolic encephalopathy: Patient remains obtunded/unresponsive: Secondary to acute CVA On comfort care hospice now (5) CAD (coronary artery disease): (6) Elevated troponin: (7) KEYSHA (acute kidney injury): (8) CKD (chronic kidney disease), stage III: (9) Pancytopenia: WBC 0.85, H/H 10.3/30.6, platelets 120 K, ANC 0.62 on admission Likely secondary to sepsis No anaplasmosis, no platelet clumping, no increase in spherocytes and schistocytes identified on peripheral smear Platelet 70 and WBC 10k and hbg 8.7 Patient found not to be a candidate for TPA for thrombocytopenia in the setting of acute CVA Care transition to comfort care/hospice as per family wish (10) Hypertension: (11) DVT prophylaxis: CODE STATUS: DNR/DNI Disposition: Transferred to medical floor on hospice/comfort care Subjective Stroke alert was called around 12 PM today This morning per nursing, patient was alert awake alert oriented, Finished her meals Had Occupational Therapy managed to get out of bed to transfer to chair Patient's sister Lynda came to visit around 10:15 AM, they played card games, had fluent speech normal mentation At approximately 11 AM: Patient was noted to be very lethargic, tired-stopped communicating Patient was evaluated 10-15 minutes later by RN, patient noted to have right facial droop, right hemiparesis/hemineglect with mild tremor noted on right upper extremity, STROKE ALERT WAS CALLED Stat CT head noncontrast was done, patient was taken to ICU room 101 [facility] telemetry stroke team was consulted, Patient was evaluated by [facility] stroke neurology: Dr. Sharp- Initially patient noted to have severe neurologic deficit, with absence of gag reflex, flaccid paralysis of bilateral upper and lower extremity, No withdrawal noted on pain stimulus Pupils bilateral constricted sluggishly reactive to light All symptoms suggestive of brainstem stroke Patient's platelet count: Today 70, with hemoglobin 8.4: Has been pancytopenic since admission for severe sepsis [facility] neuro stroke physician: Recommended two options available for patient: TPA-which provides significant bleeding risk given severe thrombocytopenia, and anemia comorbidities Other option: Transfer to [facility] for mechanical thrombectomy Spoke with patient's Michael Alas over phone phone number #[phone] Updated regarding patient's massive stroke possible involving brain stem, very poor prognosis/outcome without any treatment: Permanent vegetative state versus Initially patient's said do everything possible, agreed to transfer patient to [facility] for thrombectomy. Patient's sister, who is a retired RN, and grandson were present at bedside They both understood the grave prognosis for the patient, Patient's sister Lynda repeated: Marquita never wanted life support /had numerous discussion with her in the past For the past 2 years she has been wheelchair-bound Also Marquita will not want to have invasive procedure which also will not provide her better quality of life Mr. Michael Alas: (Patient's ) -called back again: Does not want patient to be intubated(in order to transfer patient to [facility], neuro stroke team recommend mechanical intubation as patient did not had any gag reflex, concern about airway compromise in route) Does not want any life support for Marquita Wants patient to be comfortable only I did explained to Mr. Alas, Grim prognosis of brain stem stroke without any treatment or intervention Mr. Alas verbalized understanding, understands patient may without transfer or intervention Also voiced concern, that patient outcome may not be better after putting her through the intervention as well Patient's , and family members: Sister and grandson all felt comfortable to transition to comfort/palliative care CODE STATUS changed to DNR/DNI [facility] transfer center updated regarding cancellation of transfer Palliative care consulted Patient remains comatose unresponsive Breathing in room air, able to maintain airway no sign of distress or shortness of breath noted Ordered for PRN atropine sublingual drops for increased secretion, IV as needed morphine as needed for evidence of shortness of breath or discomfort Patient is transferred to medical floor, Transitioned to comfort care hospice only Results & Data Vital Signs (Past 12 Hours) Vital Signs Temp Pulse Pulse Pulse Resp BP Pulse Ox 06/20/19 10:47 36.8 C 79 18 165/67 H 96 06/20/19 07:14 75 06/20/19 07:09 37.1 C 50 L 17 159/61 H 97 06/20/19 04:00 36.7 C 79 17 160/67 H 96 (1) CAD (coronary artery disease) Coronary Disease-Associated Artery/Lesion type: [place] artery [place] vs. transplanted heart: [place] heart Associated angina: without angina Qualified Code(s): I25.10 - Atherosclerotic heart disease of [place] coronary artery without angina pectoris
[2019-06-21] MEDS: MoRPHine SULFATE 2 MG/ML CARP IV PRN ×4 (09:58→23:40)
--- NOTE | 2019-06-21 11:11 | Palliative Care Consultation ---
Date of Consultation June 21, 2019 Assessment & Plan (1) Palliative care encounter: This is an 84-year-old female who presented to the ED with AMS and LLQ pain and flank pain, with nausea and vomiting. The patient has an additional PMH that includes sepsis, metabolic encephalopathy, CAD, CKD stage 3. The patient was being treated for sepsis and a UTI. Yesterday, the patient became unresponsive with a right facial droop and right hemiparesis with a loss of gag reflex. A Stroke alert was called and she was evaluated by the [facility] [place] team. They considered and discussed transferring the patient to [facility] and after discussion, the patients declined and, instead, decided to transition patient to full comfort measures. All medications were stopped, aside from Morphine, Atropine, and Ativan. No heroic measures are to be taken. Palliative Care was consulted to manage symptoms and provide support to the family. -I met with patient in room 456-2. Patients , Michael and a son, grand-son and nephew were at the bedside. The patient does have two sisters and a brother who stayed with her last night and two other children who are involved but were not present for our discussion. -The patient appears very comfortable with symmetrical chest rise, no accessory muscle use, no furrowed brow. Patient did open her eyes to voice, but did not track. -We discussed the patients most recent events and discussed at length time estimates with patients who suffer from a CVA. I set their expecation that neurologic status can fluctuate and even have periods of the patient being fully awake. They asked a lot of questions regarding end of life and I answered them to their satisfaction. -The patient was transitioned to TAX COLLECTION COORDINATOR yesterday, including DNR/DNI, no artificial nutrition, no antibiotics, etc. -The patient was started on Morphine IV, Atropine gtts and Ativan. The patient has utilized one dose of Morphine today. -I did state that neuro involvement can fluctuate and set their expectation that should she stabilize throughout the weekend and not require pain/symptom m anagement nor show signs of decline and evident demise, we will need to look at the options of going home with Hospice vs a nursing facility with hospice. They understand and would like case management to provide a list of Hospice agencies to them. I updated CM and the Hospitalist with the above. -Patient has olmos catheter which if the patient would need to transition out of the hospital and was stable enough to do so, the catheter could stay in place. -Bereavement tray at the bedside. I did encourage them to contact any family members or friends who could not be here to allow them to speak to the patient. -Gone from My Sight book provided to family members, along with my contact information. -PPS: 10% (2) Acute CVA (cerebrovascular accident): (3) Metabolic encephalopathy: (4) Severe sepsis: Supervising Physician Co-Signing Physician Notes Chart reviewed, patient seen and examined-collaborated with KARLEE Levine Patient seen and examined this afternoon-multiple family at bedside including patient's PE: Patient did not respond to voice during my visit, appears comfortable HEENT: Dry mucous membranes Respirations: Unlabored CV: Normal rate, no edema Abdomen: Not distended Skin: Feet pale, slightly cool to touch, no mottling Neuro: Unresponsive to voice or touch Agree with above note, assessment and plan as per KARLEE Levine- will continue to follow and assist family with medical decision making. History of Present Illness Reason for Consultation: symptom management Requesting Physician: Dr. Yu Attending Physician: Sis Yu MD History of Present Illness This is an 84-year-old female who presented to the ED with AMS and LLQ pain and flank pain, with nausea and vomiting. The patient has an additional PMH that includes sepsis, metabolic encephalopathy, CAD, CKD stage 3. The patient was being treated for sepsis and a UTI. Yesterday, the patient became unresponsive with a right facial droop and right hemiparesis with a loss of gag reflex. A Stroke alert was called and she was evaluated by the [facility] stroke team. They considered and discussed transferring the patient to [facility] and after discussion, the patients declined and, instead, decided to transition patient to full comfort measures. All medications were stopped, aside from Morphine, Atropine, and Ativan. No heroic measures are to be taken. Palliative Care was consulted to manage symptoms and provide support to the family. Please see A/P for further details. Palliative Care will continue to follow throughout the hospitalization. Thank you kindly for involving palliative care with this unfortunate patient. Allergies Allergy/AdvReac Type Severity Reaction Status Date / Time banana AdvReac Unknown SHAKES;FEELS Verified 06/15/19 07:45 LIKE SHE IS IN ANOTHER WORLD Home Medications Home Medications Medication Instructions Recorded Confirmed Type amlodipine 5 mg PO DAILY 06/15/19 06/15/19 History aspirin 81 mg PO DAILY 06/15/19 06/15/19 History calcium carbonate [Calcium 600] 600 mg PO DAILY 06/15/19 06/15/19 History celecoxib 100 mg PO BID 06/15/19 06/15/19 History metoprolol succinate 100 mg PO DAILY 06/15/19 06/15/19 History nitroglycerin [Nitrostat] 0.4 mg SUBLINGUAL USEASDIRECTD PRN 06/15/19 06/15/19 History oxybutynin chloride 2.5 mg PO BID 06/15/19 06/15/19 History potassium chloride 20 meq PO DAILY 06/15/19 06/15/19 History triamterene-hydrochlorothiazid 1 tab PO DAILY 06/15/19 06/15/19 History Patient History Medical History CKD (chronic kidney disease), stage III (Chronic) Non-STEMI (non-ST elevated myocardial infarction) (Chronic) Hypertension (Chronic) CAD (coronary artery disease) (Chronic) Dyslipidemia (Chronic) Surgical History History of cataract surgery (Chronic) History of total right hip arthroplasty (Chronic) History of carpal tunnel surgery of right wrist (Chronic) Family History Mother Heart disease Liver cancer Father Heart disease Social History Preferred Language: Cypriot Communication Ability: drowsy Visual Impairment: No Limitations Hearing Ability: Normal Associate Financial Analyst Required: No Beliefs That Will Affect Care: None marital status details: Current Living Situation: Spouse Other Information That Helps Us Care for You: No Feels Safe at Home: No Is there a partner from a previous relationship who is making you feel unsafe now?: No Any Concerns about Your Family Situation: No Would You Like to Speak to Someone About Your Situation: No Safety Concerns: Feels Safe At This Time Smoking Status: Never smoker Hx Alcohol Use: No Hx Substance Use: No Review of Systems Review of Systems: Unobtainable due to cognitive status Physical Exam Constitutional: + ill appearing, + frail appearing and comfortable Eyes: pt does not track with her eyes ENMT: external ear and nose normal, oropharynx normal Neck: trachea midline, no thyromegaly Respiratory: normal respiratory effort and symmetric chest movement Auscultation: + diminished lung sounds Cardiovascular: RRR, no murmur, no edema Heart Sounds: normal S1 and normal S2 Extremities: normal capillary refill and + pedal edema Gastrointestinal (Abdomen): normal bowel sounds, soft, nontender, no hepatosplenomegaly Skin: no rashes, warm and dry + mottling (on bottom of right foot ) Psychiatric: Orientation: alert (openes eyes to voice, but does not track ) Genitourinary: olmos catheter in place Lymphatic: no cervical or axillary lymphadenopathy PG Care Time/CCT Total # of Minutes Spent Total Time Spent with Patient: Total time spent is greater than 50% in coordination of care (as documented) at patient's floor/unit and/or counseling patient:70 Time Spent Midlevel Total time spent 70 minutes with > 50% of that time spent assessing the patient, discussing end of life symptoms and expectations with the family members in the room. Attending Spent 20 minutes in addition to the 70 minutes spent by ETL ANALYST DEVELOPER-for a total of 100 minutes with greater than 50% of the time spent at bedside reviewing end-of-life issues.
--- NOTE | 2019-06-21 18:16 | Hospitalist Progress Note ---
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, aphasia, absence of gag reflex Overall prognosis remains extremely poor Patient is DNR/DNI and comfort care Appreciate input from palliative care team (2) Acute CVA (cerebrovascular accident): Acute CVA leading to right facial droop right dense paresis right hemineglect with left lateral gaze yesterday around 11 AM, code stroke alert was called Not a candidate for TPA for significant thrombocytopenia platelet count 70 [place] neuro stroke was consulted, Consideration was made to transfer patient to [place] for mechanical thrombectomy, patient overall outcome remains poor at baseline patient has been limited limited mobility with bedbound status for last 3 years Admitted with severe sepsis for urine tract infection obstructed ureteric stone Family did not want patient to be on life support, also did not want aggressive heroic major chance of reasonable recovery remains very poor Patient is transition to comfort care hospice DNR/DNI Subjective Patient remains on comfort care hospice, obtunded No sign of distress noted Has minimum reflexive movement of left lower extremity Multiple family members-/daughter/son present at bedside Physical Exam Physical Exam: Minimum exam for hospice comfort care General exam elderly female unresponsive obtunded, no apparent distress noted Pulmonology: No sign of respiratory distress no labored breathing Neuro: Comatose with dense paralysis
[2019-06-22] MEDS: MoRPHine SULFATE 2 MG/ML CARP IV PRN ×6 (03:28→23:47)
--- NOTE | 2019-06-22 11:09 | Palliative Care Progress Note ---
Date of Service June 22, 2019 Assessment & Plan (1) Palliative care encounter: This is an 84-year-old female who presented to the ED with AMS and LLQ pain and flank pain, with nausea and vomiting. The patient has an additional PMH that includes sepsis, metabolic encephalopathy, CAD, CKD stage 3. The patient was being treated for sepsis and a UTI. Yesterday, the patient became unresponsive with a right facial droop and right hemiparesis with a loss of gag reflex. A Stroke alert was called and she was evaluated by the [facility] stroke team. They considered and discussed transferring the patient to [facility] and after discussion, the patients declined and, instead, decided to transition patient to full comfort measures. All medications were stopped, aside from Morphine, Atropine, and Ativan. No heroic measures are to be taken. Palliative Care was consulted to manage symptoms and provide support to the family. -I examined the patient today after talking with nursing. -Patient has had a few family members in and out this morning, no family present during my encounter. -Patient has utilized 6 doses of IV Morphine over the past 24 hours. -Patient is tachypnic, which could be neurologic or discomfort. Patient also does have furrowed brow. -Patient is not responsive to me today. -As I mentioned yesterday to family, neurologic involvement can fluctuate, would like to schedule the patients Morphine TID and allow Q2 PRN additionally as currently ordered. -The patient was transitioned to BARREL DRAINER yesterday, including DNR/DNI, no artificial nutrition, no antibiotics, etc. -I did state yesterday that neuro involvement can fluctuate and set their expectation that should she stabilize throughout the weekend and not require pain/symptom management nor show signs of decline and evident demise, we will need to look at the options of going home with Hospice vs a nursing facility with hospice. -Patient continues to produce urine. -I do believe, based on the patients current presentation, that she is NOT going to be stable for discharge out of the hospital, nor do I feel she is an appropriate GIP candidate -PPS: 10% (2) Acute CVA (cerebrovascular accident): (3) Metabolic encephalopathy: (4) Severe sepsis: Subjective Patient obtunded Tachypnic, continues to have intermittent LLE reflex movement No family at bedside Review of Systems Review of Systems: Unobtainable due to reduced consciousness (obtunded) Physical Exam Constitutional: + ill appearing and + frail appearing ENMT: external ear and nose normal, oropharynx normal Neck: trachea midline, no thyromegaly Respiratory: + labored breathing, + tachypneic and symmetric chest movement Auscultation: + diminished lung sounds Cardiovascular: RRR, no murmur, no edema Heart Sounds: normal S1 and normal S2 Extremities: normal capillary refill and + pedal edema Gastrointestinal (Abdomen): normal bowel sounds, soft, nontender, no hepatosplenomegaly Skin: no rashes, warm and dry + mottling (on bottom of right foot ) Psychiatric: Orientation: alert (openes eyes to voice, but does not track ) Lymphatic: no cervical or axillary lymphadenopathy PG Care Time/CCT Total # of Minutes Spent Total Time Spent with Patient: Total time spent is greater than 50% in coordination of care (as documented) at patient's floor/unit and/or counseling patient: 25 Time Spent Midlevel Total time spent 25 minutes with > 50% of that time spent assessing the patient, discussing symptom management with staff
[2019-06-22] MEDS: MoRPHine SULFATE 2 MG/ML CARP IV SCH ×2 (14:03→21:28)
--- NOTE | 2019-06-22 18:04 | Hospitalist Progress Note ---
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 leading to dense paralysis, aphasia, absence of gag reflex Overall prognosis remains extremely poor Patient is DNR/DNI and comfort care Appreciate input from palliative care team (2) Acute CVA (cerebrovascular accident): Acute CVA leading to right facial droop right dense paresis right hemineglect with left lateral gaze yesterday around 11 AM, code stroke alert was called Not a candidate for TPA for significant thrombocytopenia platelet count 70 [place] neuro stroke was consulted, Consideration was made to transfer patient to [place] for mechanical thrombectomy, patient overall outcome remains poor at baseline patient has been limited limited mobility with bedbound status for last 3 years Admitted with severe sepsis for urine tract infection obstructed ureteric stone Family did not want patient to be on life support, also did not want aggressive heroic major chance of reasonable recovery remains very poor Patient is transition to comfort care hospice DNR/DNI Subjective intermittent temp spike noted cold washcloth applied to forehead by Nursing ordered IV tylenol evaluated at bedside pt remains obtunded /unresponsive , with no limb movement noted tachypnia with laboured breathing noted scheduled morphine ordered by palliative care pts condition noted to decline more in last 24 hrs multiple family members - /son /daughters -present at bedside - Physical Exam Physical Exam: minimum exam for comfort care : General ; obtunded , comatose with rapid shallow breathing no apparent sign of pain or distress noted Neuro: remains unresponsive /comatose
[2019-06-22] MEDS: ACETAMINOPHEN 1,000 MG/100 ML VIAL IV PRN (20:03)
[2019-06-23] MEDS: MoRPHine SULFATE 2 MG/ML CARP IV SCH ×2 (08:51→14:30)
[2019-06-23] MEDS: ACETAMINOPHEN 1,000 MG/100 ML VIAL IV PRN (14:55)
[2019-06-23] MEDS: ATROPINE SULFATE 1% OP SOLN 5 ML BTL SL PRN ×2 (17:25→19:25)
--- NOTE | 2019-06-23 18:20 | Hospitalist Progress Note ---
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, aphasia, absence of gag reflex Overall prognosis remains extremely poor Patient is DNR/DNI and comfort care Appreciate input from palliative care team (2) Acute CVA (cerebrovascular accident): Acute CVA leading to right facial droop right dense paresis right hemineglect with left lateral gaze yesterday around 11 AM, code stroke alert was called Not a candidate for TPA for significant thrombocytopenia platelet count 70 [place] neuro stroke was consulted, Consideration was made to transfer patient to [place] for mechanical thrombectomy, patient overall outcome remains poor at baseline patient has been limited limited mobility with bedbound status for last 3 years Admitted with severe sepsis for urine tract infection obstructed ureteric stone Family did not want patient to be on life support, also did not want aggressive heroic major chance of reasonable recovery remains very poor Patient is transition to comfort care hospice DNR/DNI Subjective Patient noted to have agonal breathing with long apneic spell Remains obtunded with intermittent spiking of temperature getting IV morphine Was getting IV morphine every 2 hours as needed, dose increased to q. one hours as needed-Per family request for ongoing respiratory distress Ordered for scopolamine patch for increased secretion, already getting intermittent atropine drops sublingual significant clinical deterioration noted Noted in the past few hours prognosis Grim /terminal Physical Exam Physical Exam: minimum exam for comfort care : obtunded agonal breathing
[2019-06-23] MEDS: MoRPHine SULFATE 2 MG/ML CARP IV PRN ×2 (18:48→18:54)
[2019-06-23] MEDS ORDERED: MoRPHine SULFATE 2 MG/ML CARP IV STA ×2 (18:54→19:39)
[2019-06-23] MEDS ORDERED: MoRPHine SULFATE 2 MG/ML CARP IV PRN (18:55)
[2019-06-23] MEDS ORDERED: SCOPOLAMINE 1.5 MG TDSY TD SCH (19:00)
[2019-06-23] MEDS ORDERED: MoRPHine SULF/NSS 250 MG/250 ML BTL IV SCH (19:30)
[2019-06-24] MEDS ORDERED: CHECK SCOPOLAMINE PATCH PLACEMENT SCH
--- NOTE | 2019-06-24 06:59 | Death Summary ---
Date of Service June 24, 2019 Was Notified that patient . Seen and examined the patient. Exam: Ge Unresponsive Eyes: Pupils dilated fixed and non reactive to light Neck: No carotid pulse palpable CVs No heart sounds on ascultation RS no spontaneous breathing seen. No breath sounds on ascultation. Patient pronounced on June 23 at 11:23 Pm. Family in the room. Pronouncement Note Contributing Factors (1) Palliative care encounter: (2) Acute CVA (cerebrovascular accident): Additional Data Attending physician: Sis Yu MD
--- NOTE | 2019-06-24 10:06 | Discharge Summary ---
Date of Service June 24, 2019 Admission HPI Per Admitting Provider 84-year-old female who presents the ED with altered mental status. and daughter are at the bedside who provides some history. Yesterday, patient was complaining of left flank pain radiating into her left lower quadrant. She also had nausea with a couple episodes of vomiting. They describe the emesis as green/bilious in nature. No hematemesis or coffee-ground emesis. Patient was able to tolerate some chicken soup for dinner last night. Around 4 AM, reports that he was awoken because the patient was shaking. She was awake and conversing at this time. He gave her a sublingual nitroglycerin and a baby aspirin. There is no reports of chest pain. Denies shortness of breath. No lightheadedness, dizziness, diaphoresis, syncopal events. Patient has not had a bowel movement in 2 days, reports she typically goes about 2 times per day. Denies abdominal pain. Temperature was not taken to evaluate for fever. Denies urinary symptoms. In the ED, labs show pancytopenia (WBC 0.85, ANC 0.62, Hgb 10.3, platelets 120), KEYSHA with creatinine 2.95 (baseline runs in the mid ones), lactic acid 4.8. Patient has been afebrile. Patient was mildly tachycardic with borderline low BPs. UA suggest UTI.CT ABD/pelvis is suggesting a possible obstructing distal right ureteral stone. Patient was given IVF and IV ceftriaxone. Principal Diagnosis Patient while on comfort care hospice Discharge Data Allergies Allergy/AdvReac Type Severity Reaction Status Date / Time banana AdvReac Unknown SHAKES;FEELS Verified 06/15/19 07:45 LIKE SHE IS IN ANOTHER WORLD Consultations 06/15/19 08:04 Consult Urology Stat ED Decision to Admit Stat 06/15/19 10:19 Consult Urology Routine 06/15/19 11:32 Consult Cardiology Routine 06/15/19 11:58 Consult Certified Medical Biller Routine 06/15/19 12:26 Consult Infectious Diseases Routine 06/20/19 13:16 Consult Palliative Care Routine Procedures Performed Operation Date: 06/15/19 19:05 <No data on this case meets the specified criteria> Ordered Studies 06/15/19 07:22 CT abd pelvis wo con Stat 06/15/19 07:24 CT head/brain wo con Stat 06/15/19 08:31 US renal/blad retro comp Stat 06/15/19 13:14 US point of care ultrasound Routine 06/18/19 12:22 US renal/blad retro comp Routine 06/20/19 12:06 CT head/brain wo con Stat Hospital Course (1) Palliative care encounter: Patient will comfort care hospice Developed agonal breathing, with prolonged apneic Spell Started on IV morphine drip Acute CVA with possible brain stroke infarction Patient is obtunded absence of gag reflex /dense paralysis Required frequent morphine administration for respiratory distress, sublingual atropine for increased secretion IV morphine started, scopolamine patch placed Multiple family members were present And while on comfort care hospice progressive decline is status noted in the last 24 to 48 hours spiking temp possible due to evolving Brain stem stroke vs neurogenic edeme affecting thermoregularory center Patient is transition to hospice comfort care: Acute CVA 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 leading to dense paralysis, aphasia, absence of gag reflex Overall prognosis remains extremely poor Patient is DNR/DNI and comfort care (2) Acute CVA (cerebrovascular accident): Acute CVA leading to right facial droop right dense paresis right heminegl ect with left lateral gaze yesterday around 11 AM, code stroke alert was called Not a candidate for TPA for significant thrombocytopenia platelet count 70 [place] neuro stroke was consulted, Consideration was made to transfer patient to [place] for mechanical thrombectomy, patient overall outcome remains poor at baseline patient has been limited limited mobility with bedbound status for last 3 years Admitted with severe sepsis for urine tract infection obstructed ureteric stone Family did not want patient to be on life support, also did not want aggressive heroic major chance of reasonable recovery remains very poor Patient is transition to comfort care hospice Required IV morphine drip for respiratory distress while on comfort care DNR/DNI Total Time Total Time Spent Total Time Spent (In Minutes): Patient Discharge Plan Discharge Items Patient Disposition: Admission Data Admit Date/Time: 06/15/19 08:32 Service: Medical Other DC Date/Time DO NOT enter until pt leaves facility: 06/23/19 23:23
== END 2019-06-23 23:23 | disposition expired | DRG 871 ==
LOC: ED 06:05 → 2S 08:32 → SUATTDRO 08:32 → 2S 09:48 → 1E 13:11 → 2S 06-17 17:38 → 4W 06-20 15:23
DX: D61.818 Other pancytopenia; I25.2 Old myocardial infarction; A41.9 Sepsis, unspecified organism; Z79.899 Other long term (current) drug therapy; G81.91 Hemiplegia, unspecified affecting right dominant side; E78.5 Hyperlipidemia, unspecified; N13.6 Pyonephrosis; R65.21 Severe sepsis with septic shock; Z51.5 Encounter for palliative care; N18.3 Chronic kidney disease, stage 3 (moderate); I12.9 Hypertensive chronic kidney disease with stage 1 through stage 4 chronic kidney disease, or unspecified chronic kidney disease; R29.810 Facial weakness; G93.41 Metabolic encephalopathy; Z79.82 Long term (current) use of aspirin; Z66 Do not resuscitate; I63.9 Cerebral infarction, unspecified; I24.8 Other forms of acute ischemic heart disease; I25.10 Atherosclerotic heart disease of native coronary artery without angina pectoris